=== PATIENT | female | born 1975 | race Caucasian/White ===

== ENCOUNTER 2017-04-08 15:16 | Emergency (ER) | payer MEDICAID ==
[2017-04-08 15:59] LABS: APPEARANCE CLEAR (CLEAR); BILIRUBIN NEGATIVE (NEGATIVE); COLOR YELLOW (YELLOW); GLUCOSE NEGATIVE (NEGATIVE); KETONE NEGATIVE (NEGATIVE); LEUKOCYTE ESTERASE NEGATIVE (NEGATIVE); NITRITE NEGATIVE (NEGATIVE); PROTEIN NEGATIVE (NEGATIVE); UROBILINOGEN NORMAL (NORMAL)
== END 2017-04-08 15:17 | disposition left against medical advice (07) ==
LOC: D.ER 15:16
PROVIDERS: Emergency Medicine
DX: R10.9 Unspecified abdominal pain (principal)

== ENCOUNTER 2017-04-14 21:46 | Emergency (ER) | payer MEDICAID ==
[2017-04-14 22:47] LABS: BASOPHILS 0.1 % (0-2); EOSINOPHILS 0.8 % (0-7); HEMATOCRIT 39.1 % (36.0-48.0); HEMOGLOBIN 13.2 g/dL (12-16); IMMATURE GRANULOCYTES 0.6 % (0-5); LYMPHOCYTES 22.6 % (15-50); MCH 30.1 pg (26.0-34.0); MCHC 33.8 g/dL (31.0-37.0); MCV 89.3 fL (80.0-100.0); MEAN PLATELET VOLUME 11.9 fL (7.4-10.4); MONOCYTES 6.5 % (2-11); NEUTROPHILS 69.4 % (40-80); PLATELET COUNT 291 10x3/uL (130-400); RBC 4.38 10x6/uL (4.00-5.40); RDW 13.7 % (11.5-14.5); WBC 19.5 10x3/uL (4.8-10.8)
[2017-04-14 23:03] LABS: ALBUMIN 2.9 g/dL (3.4-5.0); ALKALINE PHOSPHATASE 85 U/L (46-116); ALT (SGPT) 13 U/L (10-68); AMYLASE - SERUM 91 U/L (25-115); BILIRUBIN - TOTAL 0.11 mg/dL (0.2-1.3); CALC OSMOLALITY 280 mosm/kg (275-300); CALCIUM 8.4 mg/dL (8.5-10.1); CARBON DIOXIDE 30.8 mmol/L (21.0-32.0); CHLORIDE - SERUM 106 mmol/L (98-107); CREATININE - SERUM 0.8 mg/dL (0.6-1.3); GLUCOSE 86 mg/dL (74-106); LIPASE 247 U/L (73-393); POTASSIUM - SERUM 3.2 mmol/L (3.5-5.1); PROTEIN - SERUM 5.8 g/dL (6.4-8.2); SODIUM 142 mmol/L (136-145); UREA NITROGEN 9 mg/dL (7-18); eGFR NON AFRICAN AMERICAN 84 mL/min (90-120)
[2017-04-14 23:13] LABS: APPEARANCE CLEAR (CLEAR); COLOR YELLOW (YELLOW); LEUKOCYTE ESTERASE NEGATIVE (NEGATIVE); NITRITE NEGATIVE (NEGATIVE); PROTEIN NEGATIVE (NEGATIVE)
[2017-04-14 23:14] LABS: BILIRUBIN NEGATIVE (NEGATIVE); GLUCOSE NEGATIVE (NEGATIVE); KETONE NEGATIVE (NEGATIVE); UROBILINOGEN NORMAL (NORMAL)
[2017-04-14 23:34] LABS: HCG URINE NEGATIVE (NEGATIVE)
== END 2017-04-15 04:38 | disposition home or self-care (01) ==
LOC: D.ER 21:46
PROVIDERS: Family Medicine
DX: K29.00 Acute gastritis without bleeding (principal); F17.200 Nicotine dependence, unspecified, uncomplicated

== ENCOUNTER 2017-06-06 13:45 | Emergency (ER) | payer MEDICAID ==
[2017-06-06 14:48] LABS: APPEARANCE CLEAR (CLEAR); BACTERIA FEW /hpf (NONE SEEN); BILIRUBIN NEGATIVE (NEGATIVE); COLOR YELLOW (YELLOW); EPITHELIAL CELLS 0-5 /hpf (0-5); GLUCOSE NEGATIVE (NEGATIVE); KETONE NEGATIVE (NEGATIVE); LEUKOCYTE ESTERASE NEGATIVE (NEGATIVE); NITRITE NEGATIVE (NEGATIVE); PROTEIN NEGATIVE (NEGATIVE); RED CELLS - URINE OCC /hpf (0-5); SPECIFIC GRAVITY 1.005 (1.005-1.020); UROBILINOGEN NORMAL (NORMAL); WHITE CELLS - URINE RARE /hpf (0-5)
[2017-06-06 16:42] LABS: BASOPHILS 0.4 % (0-2); EOSINOPHILS 1.3 % (0-7); HEMATOCRIT 41.4 % (36.0-48.0); HEMOGLOBIN 13.8 g/dL (12-16); IMMATURE GRANULOCYTES 0.2 % (0-5); LYMPHOCYTES 17.9 % (15-50); MCH 29.7 pg (26.0-34.0); MCHC 33.3 g/dL (31.0-37.0); MCV 89.2 fL (80.0-100.0); MEAN PLATELET VOLUME 12.2 fL (7.4-10.4); MONOCYTES 9.8 % (2-11); NEUTROPHILS 70.4 % (40-80); PLATELET COUNT 237 10x3/uL (130-400); RBC 4.64 10x6/uL (4.00-5.40); RDW 13.1 % (11.5-14.5); WBC 11.2 10x3/uL (4.8-10.8)
[2017-06-06 17:31] LABS: ALBUMIN 3.4 g/dL (3.4-5.0); ALKALINE PHOSPHATASE 119 U/L (46-116); ALT (SGPT) 20 U/L (10-68); BILIRUBIN - TOTAL 0.14 mg/dL (0.2-1.3); CALC OSMOLALITY 275 mosm/kg (275-300); CALCIUM 8.8 mg/dL (8.5-10.1); CARBON DIOXIDE 27.5 mmol/L (21.0-32.0); CHLORIDE - SERUM 105 mmol/L (98-107); CREATININE - SERUM 0.7 mg/dL (0.6-1.3); GLUCOSE 86 mg/dL (74-106); POTASSIUM - SERUM 3.9 mmol/L (3.5-5.1); PROTEIN - SERUM 6.4 g/dL (6.4-8.2); SODIUM 140 mmol/L (136-145); UREA NITROGEN 6 mg/dL (7-18); eGFR NON AFRICAN AMERICAN > 90 mL/min (90-120)
== END 2017-06-06 21:44 | disposition home or self-care (01) ==
LOC: D.ER 13:45
PROVIDERS: Emergency Medicine; Physician Assistant
DX: R10.32 Left lower quadrant pain (principal); R10.31 Right lower quadrant pain; K50.90 Crohn's disease, unspecified, without complications; F17.200 Nicotine dependence, unspecified, uncomplicated

== ENCOUNTER → 2017-06-12 15:04 | Outpatient (CLI) | payer MEDICAID | END | disposition home or self-care (01) | LOC: D.US 15:04 | DX: R60.0 Localized edema (principal) ==

== ENCOUNTER → 2017-07-16 12:40 | Outpatient (CLI) | payer MEDICAID | END | disposition home or self-care (01) | LOC: D.US 12:40 | DX: E01.0 Iodine-deficiency related diffuse (endemic) goiter (principal); I80.9 Phlebitis and thrombophlebitis of unspecified site ==

== ENCOUNTER 2017-10-21 16:17 | Emergency (ER) | payer MEDICAID | END 2017-10-21 17:30 | disposition left against medical advice (07) | LOC: D.ER 16:17 | DX: M79.601 Pain in right arm (principal) ==

== ENCOUNTER → 2017-10-22 14:30 | Outpatient (CLI) | payer MEDICAID | END | disposition home or self-care (01) | LOC: D.US 14:30 | DX: R60.9 Edema, unspecified (principal) ==

== ENCOUNTER → 2017-11-04 12:40 | Outpatient (CLI) | payer MEDICAID | END | disposition home or self-care (01) | LOC: D.US 10-31 13:00 | DX: R22.1 Localized swelling, mass and lump, neck (principal) ==

== ENCOUNTER 2018-05-26 12:31 | Emergency (ER) | payer MEDICAID ==
[~2018-05-26] VITALS: Ht 157.5 cm; Wt 68.2 kg
[2018-05-26 12:54] VITALS: Ht 157.5 cm; Wt 68.2 kg
[2018-05-26] MEDS ORDERED: PROZAC40 MG PO (12:55)
[2018-05-26] MEDS ORDERED: PHENERGAN25 M1 PO (12:55)
[2018-05-26] MEDS ORDERED: PEPCID40 MG PO (12:56)
[2018-05-26] MEDS ORDERED: FEXMID7.5 MG PO (12:56)
[2018-05-26] MEDS ORDERED: LIPITOR40 MG (12:56)
[2018-05-26 13:27] LABS: APPEARANCE CLEAR (CLEAR); BACTERIA FEW /hpf (NONE SEEN); COLOR YELLOW (YELLOW); EPITHELIAL CELLS RARE /hpf (0-5)
[2018-05-26 13:28] LABS: BILIRUBIN NEGATIVE (NEGATIVE); GLUCOSE NEGATIVE (NEGATIVE); KETONE NEGATIVE (NEGATIVE); NITRITE NEGATIVE (NEGATIVE); PROTEIN NEGATIVE (NEGATIVE); RED CELLS - URINE 0-5 /hpf (0-5); UROBILINOGEN NORMAL (NORMAL); WHITE CELLS - URINE OCC /hpf (0-5)
[2018-05-26 13:48] LABS: BASOPHILS 0.2 % (0-2); EOSINOPHILS 1.1 % (0-7); HEMATOCRIT 41.6 % (36.0-48.0); HEMOGLOBIN 13.8 g/dL (12-16); IMMATURE GRANULOCYTES 0.8 % (0-5); LYMPHOCYTES 11.8 % (15-50); MCH 29.1 pg (26.0-34.0); MCHC 33.2 g/dL (31.0-37.0); MCV 87.8 fL (80.0-100.0); MEAN PLATELET VOLUME 11.7 fL (7.4-10.4); MONOCYTES 9.4 % (2-11); NEUTROPHILS 76.7 % (40-80); PLATELET COUNT 251 10x3/uL (130-400); RBC 4.74 10x6/uL (4.00-5.40); RDW 13.8 % (11.5-14.5); WBC 11.7 10x3/uL (4.8-10.8)
[2018-05-26 14:09] LABS: ALBUMIN 3.2 g/dL (3.4-5.0); ALKALINE PHOSPHATASE 180 U/L (46-116); ALT (SGPT) 25 U/L (10-68); AMYLASE - SERUM 60 U/L (25-115); CALC OSMOLALITY 276 mosm/kg (275-300); CALCIUM 8.6 mg/dL (8.5-10.1); CARBON DIOXIDE 25.9 mmol/L (21.0-32.0); CHLORIDE - SERUM 106 mmol/L (98-107); CREATININE - SERUM 0.5 mg/dL (0.6-1.3); GLUCOSE 98 mg/dL (74-106); LIPASE 81 U/L (73-393); PROTEIN - SERUM 6.8 g/dL (6.4-8.2); SODIUM 140 mmol/L (136-145); UREA NITROGEN 6 mg/dL (7-18); eGFR NON AFRICAN AMERICAN > 90 mL/min (90-120)
[2018-05-26] MEDS ORDERED: ZOFRAN4 MG PO (16:42)
[2018-05-26] MEDS ORDERED: MACROBID100 MG PO (16:42)
[2018-05-26 18:49] VITALS: BP 132/79
[2018-06-30 18:12] VITALS: Ht 157.5 cm; Wt 68.2 kg
== END 2018-05-26 18:51 | disposition home or self-care (01) ==
LOC: D.ER 12:31
PROVIDERS: Family Medicine
DX: R10.11 Right upper quadrant pain (principal); N39.0 Urinary tract infection, site not specified; F17.200 Nicotine dependence, unspecified, uncomplicated

== ENCOUNTER 2018-06-20 20:14 | Inpatient (IN) | payer MEDICAID ==
[~2018-06-20] VITALS: Ht 157.5 cm; Wt 72.1 kg
[~2018-06-20 20:14] MED LIST: FEXMID7.5 MG PO; LIPITOR40 MG; MACROBID100 MG PO; PEPCID40 MG PO; PHENERGAN25 M1 PO; PROZAC40 MG PO; ZOFRAN4 MG PO
[2018-06-20] MEDS ORDERED: OMEPRAZOLE20 M1 PO (23:09)
[2018-06-20] MEDS ORDERED: CYCLOBENZAPRINE10 MG PO (23:12)
[2018-06-20 23:28] LABS: BASOPHILS 0.2 % (0-2); EOSINOPHILS 1.5 % (0-7); HEMATOCRIT 35.6 % (36.0-48.0); HEMOGLOBIN 11.8 g/dL (12-16); IMMATURE GRANULOCYTES 0.7 % (0-5); MCHC 33.1 g/dL (31.0-37.0); MCV 87.5 fL (80.0-100.0); MEAN PLATELET VOLUME 10.5 fL (7.4-10.4); MONOCYTES 7.7 % (2-11); NEUTROPHILS 74.9 % (40-80); PLATELET COUNT 300 10x3/uL (130-400); RBC 4.07 10x6/uL (4.00-5.40); RDW 13.8 % (11.5-14.5); WBC 13.1 10x3/uL (4.8-10.8)
[2018-06-20 23:31] VITALS: BP 144/71; BMI 29.1
[2018-06-20 23:35] LABS: HCG SERUM NEGATIVE (NEGATIVE)
[2018-06-21] VITALS (14 sets, daily range): BP systolic 91–143; BP diastolic 50–85; Ht 157.5 cm; Wt 72.1 kg
[2018-06-21] MEDS ORDERED: LEVAQUIN750 MG PO (18:01)
[2018-06-21] MEDS ORDERED: PROTONIX40 MG PO (18:02)
[2018-06-21] MEDS ORDERED: FLAGYL500 MG PO (18:02)
[2018-06-21] MEDS ORDERED: PEPCID40 MG PO (18:13)
== END 2018-06-21 18:44 | disposition home or self-care (01) | DRG 391 ==
LOC: D.ICU 20:14 → D.MS 06-21 14:30
PROVIDERS: Internal Medicine Gastroenterology
PROC: 0DB78ZX Excision of Stomach, Pylorus, Via Natural or Artificial Opening Endoscopic, Diagnostic (ICD-10-PCS; principal; 2018-06-21 09:30)
DX: A09 Infectious gastroenteritis and colitis, unspecified (principal); K25.4 Chronic or unspecified gastric ulcer with hemorrhage; D62 Acute posthemorrhagic anemia; K44.9 Diaphragmatic hernia without obstruction or gangrene; K29.60 Other gastritis without bleeding; I10 Essential (primary) hypertension; K21.9 Gastro-esophageal reflux disease without esophagitis

== ENCOUNTER 2018-06-30 18:02 | Emergency (ER) | payer MEDICAID ==
[~2018-06-30] VITALS: Ht 157.5 cm; Wt 70.5 kg
[~2018-06-30 18:02] MED LIST changes: +CYCLOBENZAPRINE10 MG PO; +FLAGYL500 MG PO; +LEVAQUIN750 MG PO; +OMEPRAZOLE20 M1 PO; +PROTONIX40 MG PO
[2018-06-30 18:12] VITALS: Ht 157.5 cm; Wt 70.5 kg
[2018-06-30 19:10] LABS: BASOPHILS 0.2 % (0-2); EOSINOPHILS 0.6 % (0-7); HEMOGLOBIN 12.1 g/dL (12-16); LYMPHOCYTES 13.2 % (15-50); MCH 28.3 pg (26.0-34.0); MCHC 32.7 g/dL (31.0-37.0); MCV 86.7 fL (80.0-100.0); MEAN PLATELET VOLUME 11.5 fL (7.4-10.4); MONOCYTES 9.4 % (2-11); NEUTROPHILS 75.6 % (40-80); PLATELET COUNT 306 10x3/uL (130-400); RBC 4.27 10x6/uL (4.00-5.40); WBC 15.3 10x3/uL (4.8-10.8)
[2018-06-30 19:18] LABS: APPEARANCE HAZY (CLEAR); BACTERIA FEW /hpf (NONE SEEN); BILIRUBIN NEGATIVE (NEGATIVE); COLOR YELLOW (YELLOW); GLUCOSE NEGATIVE (NEGATIVE); KETONE NEGATIVE (NEGATIVE); MUCUS >1+ /lpf (NONE SEEN); NITRITE NEGATIVE (NEGATIVE); PROTEIN NEGATIVE (NEGATIVE); SPECIFIC GRAVITY 1.015 (1.005-1.020); UROBILINOGEN NORMAL (NORMAL); WHITE CELLS - URINE 0-5 /hpf (0-5)
[2018-06-30] MEDS ORDERED: CARAFATE1 G PO (19:26)
[2018-06-30] MEDS ORDERED: LIBRAX CAPSULE1 CAP PO (19:26)
[2018-06-30 19:28] LABS: ALBUMIN 3.2 g/dL (3.4-5.0); ALKALINE PHOSPHATASE 154 U/L (46-116); ALT (SGPT) 26 U/L (10-68); BILIRUBIN - TOTAL 0.22 mg/dL (0.2-1.3); CALC OSMOLALITY 267 mosm/kg (275-300); CALCIUM 8.5 mg/dL (8.5-10.1); CARBON DIOXIDE 26.4 mmol/L (21.0-32.0); CHLORIDE - SERUM 102 mmol/L (98-107); CREATININE - SERUM 0.6 mg/dL (0.6-1.3); GLUCOSE 95 mg/dL (74-106); LIPASE 73 U/L (73-393); POTASSIUM - SERUM 3.4 mmol/L (3.5-5.1); PROTEIN - SERUM 6.7 g/dL (6.4-8.2); SODIUM 135 mmol/L (136-145); UREA NITROGEN 6 mg/dL (7-18); eGFR NON AFRICAN AMERICAN > 90 mL/min (90-120)
[2018-06-30 20:42] VITALS: BP 132/85
== END 2018-06-30 20:43 | disposition home or self-care (01) ==
LOC: D.ER 18:02
PROVIDERS: Family Medicine
DX: K29.60 Other gastritis without bleeding (principal); K25.9 Gastric ulcer, unspecified as acute or chronic, without hemorrhage or perforation; R11.0 Nausea; K21.9 Gastro-esophageal reflux disease without esophagitis; F17.200 Nicotine dependence, unspecified, uncomplicated

== ENCOUNTER 2018-07-28 14:22 | Emergency (ER) | payer MEDICAID ==
[~2018-07-28] VITALS: Ht 157.5 cm; Wt 70.9 kg
[~2018-07-28 14:22] MED LIST changes: +CARAFATE1 G PO; +LIBRAX CAPSULE1 CAP PO
[2018-07-28 14:28] VITALS: Ht 157.5 cm; Wt 70.9 kg
[2018-07-28 15:23] LABS: BASOPHILS 0.2 % (0-2); EOSINOPHILS 0.6 % (0-7); HEMOGLOBIN 12.8 g/dL (12-16); IMMATURE GRANULOCYTES 0.8 % (0-5); LYMPHOCYTES 13.3 % (15-50); MCH 28.4 pg (26.0-34.0); MCHC 32.8 g/dL (31.0-37.0); MCV 86.7 fL (80.0-100.0); MEAN PLATELET VOLUME 10.8 fL (7.4-10.4); NEUTROPHILS 77.1 % (40-80); PLATELET COUNT 328 10x3/uL (130-400); RDW 13.9 % (11.5-14.5); WBC 16.9 10x3/uL (4.8-10.8)
[2018-07-28 15:34] LABS: APPEARANCE CLEAR (CLEAR); COLOR YELLOW (YELLOW)
[2018-07-28 15:35] LABS: BILIRUBIN NEGATIVE (NEGATIVE); GLUCOSE NEGATIVE (NEGATIVE); KETONE NEGATIVE (NEGATIVE); NITRITE NEGATIVE (NEGATIVE); PROTEIN NEGATIVE (NEGATIVE); UROBILINOGEN NORMAL (NORMAL)
[2018-07-28 15:36] LABS: BACTERIA FEW /hpf (NONE SEEN); EPITHELIAL CELLS 0-5 /hpf (0-5); MUCUS <1+ /lpf (NONE SEEN); RED CELLS - URINE 0-5 /hpf (0-5); WHITE CELLS - URINE 0-5 /hpf (0-5)
[2018-07-28 15:47] LABS: APTT 28.9 SECONDS (22.8-39.4); INR 0.97 (0.85-1.17); PROTIME 12.5 SECONDS (11.6-15.0)
[2018-07-28 15:48] LABS: ALBUMIN 3.4 g/dL (3.4-5.0); ALKALINE PHOSPHATASE 176 U/L (46-116); ALT (SGPT) 25 U/L (10-68); BILIRUBIN - TOTAL 0.19 mg/dL (0.2-1.3); CALC OSMOLALITY 271 mosm/kg (275-300); CALCIUM 8.7 mg/dL (8.5-10.1); CARBON DIOXIDE 29.2 mmol/L (21.0-32.0); CHLORIDE - SERUM 103 mmol/L (98-107); CREATININE - SERUM 0.7 mg/dL (0.6-1.3); GLUCOSE 96 mg/dL (74-106); POTASSIUM - SERUM 3.4 mmol/L (3.5-5.1); PROTEIN - SERUM 7.3 g/dL (6.4-8.2); SODIUM 137 mmol/L (136-145); UREA NITROGEN 8 mg/dL (7-18); eGFR NON AFRICAN AMERICAN > 90 mL/min (90-120)
[2018-07-28] MEDS ORDERED: NEXIUM40 MG PO (16:43)
[2018-07-28] MEDS ORDERED: PHENERGAN25 M1 PO (16:43)
[2018-07-28 18:52] VITALS: BP 135/92
== END 2018-07-28 18:55 | disposition home or self-care (01) ==
LOC: D.ER 14:22
PROVIDERS: Emergency Medicine
DX: K29.01 Acute gastritis with bleeding (principal); K21.9 Gastro-esophageal reflux disease without esophagitis; F17.200 Nicotine dependence, unspecified, uncomplicated

== ENCOUNTER → 2018-08-25 11:24 | Outpatient (CLI) | payer MEDICAID ==
[2018-07-28 14:28] VITALS: BMI 28.6
[~2018-08-25 11:24] MED LIST changes: +NEXIUM40 MG PO
== END | disposition home or self-care (01) ==
LOC: D.RAD 11:24
DX: M54.5 Low back pain (principal)

== ENCOUNTER → 2018-09-17 15:00 | Outpatient (CLI) | payer MEDICAID ==
[2018-07-28 14:28] VITALS: BMI 28.6
== END | disposition home or self-care (01) ==
LOC: D.MRI 15:00
DX: E01.0 Iodine-deficiency related diffuse (endemic) goiter (principal)

== ENCOUNTER 2018-12-20 15:13 | Emergency (ER) | payer MEDICAID ==
[~2018-12-20] VITALS: Ht 157.5 cm; Wt 72.7 kg
[2018-12-20 15:23] VITALS: Ht 157.5 cm; Wt 72.7 kg
[2018-12-20 16:15] LABS: BASOPHILS 0.2 % (0-2); EOSINOPHILS 1.3 % (0-7); HEMATOCRIT 35.5 % (36.0-48.0); HEMOGLOBIN 11.5 g/dL (12-16); IMMATURE GRANULOCYTES 0.8 % (0-5); LYMPHOCYTES 19.7 % (15-50); MCHC 32.4 g/dL (31.0-37.0); MCV 83.3 fL (80.0-100.0); MONOCYTES 10.9 % (2-11); NEUTROPHILS 67.1 % (40-80); PLATELET COUNT 333 10x3/uL (130-400); RBC 4.26 10x6/uL (4.00-5.40); RDW 14.5 % (11.5-14.5); WBC 12.5 10x3/uL (4.8-10.8)
[2018-12-20 16:29] LABS: APPEARANCE CLEAR (CLEAR); BILIRUBIN NEGATIVE (NEGATIVE); COLOR YELLOW (YELLOW); EPITHELIAL CELLS 0-5 /hpf (0-5); GLUCOSE NEGATIVE (NEGATIVE); KETONE NEGATIVE (NEGATIVE); NITRITE NEGATIVE (NEGATIVE); PROTEIN NEGATIVE (NEGATIVE); RED CELLS - URINE OCC /hpf (0-5); UROBILINOGEN NORMAL (NORMAL); WHITE CELLS - URINE NSEEN /hpf (0-5)
[2018-12-20 16:48] LABS: ALBUMIN 3.2 g/dL (3.4-5.0); ALKALINE PHOSPHATASE 171 U/L (46-116); ALT (SGPT) 24 U/L (10-68); AMYLASE - SERUM 80 U/L (25-115); BILIRUBIN - TOTAL 0.17 mg/dL (0.2-1.3); CALC OSMOLALITY 273 mosm/kg (275-300); CALCIUM 8.3 mg/dL (8.5-10.1); CHLORIDE - SERUM 101 mmol/L (98-107); CREATININE - SERUM 0.7 mg/dL (0.6-1.3); GLUCOSE 81 mg/dL (74-106); LIPASE 223 U/L (73-393); POTASSIUM - SERUM 3.7 mmol/L (3.5-5.1); SODIUM 137 mmol/L (136-145); UREA NITROGEN 14 mg/dL (7-18); eGFR NON AFRICAN AMERICAN > 90 mL/min (90-120)
[2018-12-20 16:53] LABS: HCG SERUM NEGATIVE (NEGATIVE)
[2018-12-20] MEDS ORDERED: TORADOL10 MG PO (20:16)
[2018-12-20 21:31] VITALS: BP 118/70
== END 2018-12-20 21:31 | disposition home or self-care (01) ==
LOC: D.ER 15:13
PROVIDERS: Family Medicine
DX: N93.8 Other specified abnormal uterine and vaginal bleeding (principal); Z78.0 Asymptomatic menopausal state

== ENCOUNTER 2018-12-22 14:51 | Emergency (ER) | payer MEDICAID ==
[~2018-12-22] VITALS: Ht 157.5 cm; Wt 72.7 kg
[~2018-12-22 14:51] MED LIST changes: +TORADOL10 MG PO
[2018-12-22 14:55] VITALS: Ht 157.5 cm; Wt 72.7 kg
[2018-12-22 15:16] LABS: BASOPHILS 0.2 % (0-2); EOSINOPHILS 0.5 % (0-7); HEMATOCRIT 35.3 % (36.0-48.0); HEMOGLOBIN 11.5 g/dL (12-16); IMMATURE GRANULOCYTES 0.8 % (0-5); LYMPHOCYTES 17.1 % (15-50); MCH 26.8 pg (26.0-34.0); MCHC 32.6 g/dL (31.0-37.0); MCV 82.3 fL (80.0-100.0); MEAN PLATELET VOLUME 10.7 fL (7.4-10.4); MONOCYTES 6.8 % (2-11); NEUTROPHILS 74.6 % (40-80); PLATELET COUNT 297 10x3/uL (130-400); RBC 4.29 10x6/uL (4.00-5.40); RDW 14.4 % (11.5-14.5)
[2018-12-22 15:29] LABS: ALBUMIN 3.2 g/dL (3.4-5.0); ALKALINE PHOSPHATASE 178 U/L (46-116); BILIRUBIN - TOTAL 0.11 mg/dL (0.2-1.3); CALCIUM 8.6 mg/dL (8.5-10.1); CARBON DIOXIDE 22.6 mmol/L (21.0-32.0); CHLORIDE - SERUM 105 mmol/L (98-107); CREATININE - SERUM 0.6 mg/dL (0.6-1.3); GLUCOSE 95 mg/dL (74-106); POTASSIUM - SERUM 3.6 mmol/L (3.5-5.1); SODIUM 139 mmol/L (136-145); eGFR NON AFRICAN AMERICAN > 90 mL/min (90-120)
[2018-12-22 15:31] LABS: ALT (SGPT) 40 U/L (10-68); CALC OSMOLALITY 275 mosm/kg (275-300); UREA NITROGEN 7 mg/dL (7-18)
[2018-12-22 19:00] LABS: APPEARANCE HAZY (CLEAR); BILIRUBIN NEGATIVE (NEGATIVE); COLOR YELLOW (YELLOW); GLUCOSE NEGATIVE (NEGATIVE); KETONE NEGATIVE (NEGATIVE); NITRITE NEGATIVE (NEGATIVE); PROTEIN NEGATIVE (NEGATIVE); UROBILINOGEN NORMAL (NORMAL)
[2018-12-22 19:04] LABS: WHITE CELLS - URINE OCC /hpf (0-5)
[2018-12-22 19:05] LABS: BACTERIA FEW /hpf (NONE SEEN); RED CELLS - URINE >50 /hpf (0-5)
[2018-12-22] MEDS ORDERED: PHENERGAN25 MG RC (20:14)
[2018-12-22 20:28] VITALS: BP 149/78
== END 2018-12-22 20:29 | disposition home or self-care (01) ==
LOC: D.ER 14:51
PROVIDERS: Emergency Medicine
DX: K59.00 Constipation, unspecified (principal); K92.1 Melena; M32.9 Systemic lupus erythematosus, unspecified

== ENCOUNTER 2019-01-01 12:53 | Emergency (ER) | payer MEDICAID ==
[~2019-01-01] VITALS: Ht 157.5 cm; Wt 72.7 kg
[~2019-01-01 12:53] MED LIST changes: +PHENERGAN25 MG RC
[2019-01-01 13:04] VITALS: Ht 157.5 cm; Wt 72.7 kg
[2019-01-01 14:08] LABS: ALKALINE PHOSPHATASE 176 U/L (46-116); ALT (SGPT) 21 U/L (10-68); BILIRUBIN - TOTAL 0.08 mg/dL (0.2-1.3); CALC OSMOLALITY 276 mosm/kg (275-300); CALCIUM 8.7 mg/dL (8.5-10.1); CARBON DIOXIDE 23.8 mmol/L (21.0-32.0); CHLORIDE - SERUM 107 mmol/L (98-107); CREATININE - SERUM 0.7 mg/dL (0.6-1.3); GLUCOSE 99 mg/dL (74-106); POTASSIUM - SERUM 3.2 mmol/L (3.5-5.1); PROTEIN - SERUM 6.7 g/dL (6.4-8.2); SODIUM 139 mmol/L (136-145); UREA NITROGEN 10 mg/dL (7-18); eGFR NON AFRICAN AMERICAN > 90 mL/min (90-120)
[2019-01-01 14:18] LABS: HCG SERUM NEGATIVE (NEGATIVE)
[2019-01-01 14:26] LABS: APPEARANCE HAZY (CLEAR); BACTERIA FEW /hpf (NONE SEEN); BILIRUBIN NEGATIVE (NEGATIVE); COLOR YELLOW (YELLOW); EPITHELIAL CELLS OCC /hpf (0-5); GLUCOSE NEGATIVE (NEGATIVE); KETONE NEGATIVE (NEGATIVE); MUCUS <1+ /lpf (NONE SEEN); NITRITE NEGATIVE (NEGATIVE); PROTEIN NEGATIVE (NEGATIVE); RED CELLS - URINE RARE /hpf (0-5); SPECIFIC GRAVITY 1.015 (1.005-1.020); UROBILINOGEN NORMAL (NORMAL)
[2019-01-01 14:44] LABS: BASOPHILS 0.1 % (0-2); EOSINOPHILS 0.8 % (0-7); HEMATOCRIT 35.4 % (36.0-48.0); HEMOGLOBIN 11.5 g/dL (12-16); IMMATURE GRANULOCYTES 0.5 % (0-5); LYMPHOCYTES 15.9 % (15-50); MCH 26.7 pg (26.0-34.0); MCHC 32.5 g/dL (31.0-37.0); MCV 82.1 fL (80.0-100.0); MEAN PLATELET VOLUME 11.8 fL (7.4-10.4); MONOCYTES 9.5 % (2-11); NEUTROPHILS 73.2 % (40-80); PLATELET COUNT 330 10x3/uL (130-400); RBC 4.31 10x6/uL (4.00-5.40); RDW 14.8 % (11.5-14.5); WBC 11.8 10x3/uL (4.8-10.8)
[2019-01-01 15:45] VITALS: BP 146/63
== END 2019-01-01 15:45 | disposition home or self-care (01) ==
LOC: D.ER 12:53
PROVIDERS: Emergency Medicine
DX: R10.31 Right lower quadrant pain (principal); E11.43 Type 2 diabetes mellitus with diabetic autonomic (poly)neuropathy; K31.84 Gastroparesis; M32.9 Systemic lupus erythematosus, unspecified; E87.6 Hypokalemia; R11.2 Nausea with vomiting, unspecified; R19.7 Diarrhea, unspecified

== ENCOUNTER 2019-01-19 14:57 | Emergency (ER) | payer MEDICAID ==
[~2019-01-19] VITALS: Ht 157.5 cm; Wt 68.2 kg
[2019-01-19 15:09] VITALS: Ht 157.5 cm; Wt 68.2 kg
[2019-01-19 16:03] LABS: BASOPHILS 0.2 % (0-2); EOSINOPHILS 0.4 % (0-7); HEMATOCRIT 38.2 % (36.0-48.0); HEMOGLOBIN 12.5 g/dL (12-16); IMMATURE GRANULOCYTES 0.4 % (0-5); LYMPHOCYTES 14.9 % (15-50); MCH 26.6 pg (26.0-34.0); MCHC 32.7 g/dL (31.0-37.0); MCV 81.3 fL (80.0-100.0); MEAN PLATELET VOLUME 12.1 fL (7.4-10.4); MONOCYTES 6.6 % (2-11); NEUTROPHILS 77.5 % (40-80); PLATELET COUNT 330 10x3/uL (130-400); RDW 14.7 % (11.5-14.5); WBC 13.2 10x3/uL (4.8-10.8)
[2019-01-19 16:28] LABS: ALBUMIN 3.2 g/dL (3.4-5.0); ALKALINE PHOSPHATASE 167 U/L (46-116); ALT (SGPT) 20 U/L (10-68); BILIRUBIN - TOTAL 0.19 mg/dL (0.2-1.3); CALC OSMOLALITY 275 mosm/kg (275-300); CALCIUM 8.6 mg/dL (8.5-10.1); CARBON DIOXIDE 21.3 mmol/L (21.0-32.0); CHLORIDE - SERUM 105 mmol/L (98-107); CREATININE - SERUM 0.6 mg/dL (0.6-1.3); GLUCOSE 91 mg/dL (74-106); POTASSIUM - SERUM 3.6 mmol/L (3.5-5.1); PROTEIN - SERUM 7.3 g/dL (6.4-8.2); SODIUM 140 mmol/L (136-145); UREA NITROGEN 5 mg/dL (7-18); eGFR NON AFRICAN AMERICAN > 90 mL/min (90-120)
[2019-01-19 19:35] LABS: APPEARANCE CLEAR (CLEAR); BILIRUBIN NEGATIVE (NEGATIVE); COLOR STRAW (YELLOW); GLUCOSE NEGATIVE (NEGATIVE); KETONE NEGATIVE (NEGATIVE); NITRITE NEGATIVE (NEGATIVE); PROTEIN NEGATIVE (NEGATIVE); SPECIFIC GRAVITY 1.015 (1.005-1.020); UROBILINOGEN NORMAL (NORMAL)
[2019-01-19 19:38] LABS: BACTERIA MODERATE /hpf (NONE SEEN); EPITHELIAL CELLS 0-5 /hpf (0-5); MUCUS <1+ /lpf (NONE SEEN); WHITE CELLS - URINE 0-5 /hpf (0-5)
[2019-01-19] MEDS ORDERED: CIPRO500 MG PO (21:24)
[2019-01-19] MEDS ORDERED: PHENERGAN25 MG RC (21:24)
[2019-01-19] MEDS ORDERED: FLAGYL500 MG PO (21:24)
[2019-01-19 21:39] VITALS: BP 128/85
== END 2019-01-19 21:39 | disposition home or self-care (01) ==
LOC: D.ER 14:57
PROVIDERS: Emergency Medicine
DX: K52.9 Noninfective gastroenteritis and colitis, unspecified (principal); R11.2 Nausea with vomiting, unspecified

== ENCOUNTER 2019-01-25 22:13 | Emergency (ER) | payer MEDICAID ==
[~2019-01-25] VITALS: Ht 157.5 cm; Wt 72.7 kg
[~2019-01-25 22:13] MED LIST changes: +CIPRO500 MG PO
[2019-01-25 22:25] VITALS: Ht 157.5 cm; Wt 72.7 kg
[2019-01-25 23:36] LABS: APPEARANCE HAZY (CLEAR); BACTERIA NONE SEEN /hpf (NONE SEEN); BILIRUBIN NEGATIVE (NEGATIVE); COLOR YELLOW (YELLOW); EPITHELIAL CELLS OCC /hpf (0-5); GLUCOSE NEGATIVE (NEGATIVE); KETONE NEGATIVE (NEGATIVE); NITRITE NEGATIVE (NEGATIVE); PROTEIN NEGATIVE (NEGATIVE); RED CELLS - URINE 0-5 /hpf (0-5); UROBILINOGEN NORMAL (NORMAL); WHITE CELLS - URINE 0-5 /hpf (0-5)
[2019-01-25 23:36] LABS: BASOPHILS 0.2 % (0-2); EOSINOPHILS 1.1 % (0-7); HEMATOCRIT 35.7 % (36.0-48.0); HEMOGLOBIN 11.4 g/dL (12-16); IMMATURE GRANULOCYTES 0.3 % (0-5); MCH 26.2 pg (26.0-34.0); MCHC 31.9 g/dL (31.0-37.0); MCV 82.1 fL (80.0-100.0); MEAN PLATELET VOLUME 11.9 fL (7.4-10.4); MONOCYTES 8.4 % (2-11); PLATELET COUNT 295 10x3/uL (130-400); RBC 4.35 10x6/uL (4.00-5.40); RDW 15.1 % (11.5-14.5); WBC 11.8 10x3/uL (4.8-10.8)
[2019-01-25 23:57] LABS: ALKALINE PHOSPHATASE 146 U/L (46-116); ALT (SGPT) 18 U/L (10-68); BILIRUBIN - TOTAL 0.11 mg/dL (0.2-1.3); CALC OSMOLALITY 283 mosm/kg (275-300); CALCIUM 8.6 mg/dL (8.5-10.1); CARBON DIOXIDE 22.5 mmol/L (21.0-32.0); CHLORIDE - SERUM 107 mmol/L (98-107); CREATININE - SERUM 0.7 mg/dL (0.6-1.3); GLUCOSE 94 mg/dL (74-106); POTASSIUM - SERUM 3.2 mmol/L (3.5-5.1); PROTEIN - SERUM 6.6 g/dL (6.4-8.2); SODIUM 142 mmol/L (136-145); UREA NITROGEN 14 mg/dL (7-18); eGFR NON AFRICAN AMERICAN > 90 mL/min (90-120)
[2019-01-26 01:09] LABS: UDS - AMPHET NEGATIVE QUAL (NEGATIVE); UDS - BARB NEGATIVE QUAL (NEGATIVE); UDS - BENZO POSITIVE QUAL (NEGATIVE); UDS - COCAINE NEGATIVE QUAL (NEGATIVE); UDS - OPIATE NEGATIVE QUAL (NEGATIVE); UDS - PCP NEGATIVE QUAL (NEGATIVE); UDS - THC POSITIVE QUAL (NEGATIVE)
[2019-01-26 02:37] VITALS: BP 121/69
== END 2019-01-26 02:42 | disposition home or self-care (01) ==
LOC: D.ER 22:13
PROVIDERS: Family Medicine
DX: R10.9 Unspecified abdominal pain (principal)

== ENCOUNTER 2019-01-30 16:22 | Emergency (ER) | payer MEDICAID ==
[~2019-01-30] VITALS: Ht 157.5 cm; Wt 72.6 kg
[2019-01-30 16:28] VITALS: BP 130/81; Ht 157.5 cm; Wt 72.6 kg
[2019-01-30 17:27] LABS: BASOPHILS 0.2 % (0-2); EOSINOPHILS 1.1 % (0-7); HEMATOCRIT 36.5 % (36.0-48.0); HEMOGLOBIN 11.9 g/dL (12-16); IMMATURE GRANULOCYTES 0.5 % (0-5); LYMPHOCYTES 18.2 % (15-50); MCH 26.3 pg (26.0-34.0); MCHC 32.6 g/dL (31.0-37.0); MCV 80.8 fL (80.0-100.0); MEAN PLATELET VOLUME 11.3 fL (7.4-10.4); PLATELET COUNT 311 10x3/uL (130-400); RBC 4.52 10x6/uL (4.00-5.40); RDW 15.3 % (11.5-14.5)
[2019-01-30 17:47] LABS: ALBUMIN 3.2 g/dL (3.4-5.0); ALKALINE PHOSPHATASE 149 U/L (46-116); ALT (SGPT) 21 U/L (10-68); BILIRUBIN - TOTAL 0.08 mg/dL (0.2-1.3); CALC OSMOLALITY 276 mosm/kg (275-300); CALCIUM 8.6 mg/dL (8.5-10.1); CARBON DIOXIDE 21.9 mmol/L (21.0-32.0); CHLORIDE - SERUM 105 mmol/L (98-107); CREATININE - SERUM 0.6 mg/dL (0.6-1.3); GLUCOSE 85 mg/dL (74-106); POTASSIUM - SERUM 3.6 mmol/L (3.5-5.1); SODIUM 140 mmol/L (136-145); UREA NITROGEN 11 mg/dL (7-18); eGFR NON AFRICAN AMERICAN > 90 mL/min (90-120)
== END 2019-01-30 21:17 | disposition left against medical advice (07) ==
LOC: D.ER 16:22
PROVIDERS: Family Medicine
DX: K13.79 Other lesions of oral mucosa (principal)

== ENCOUNTER 2019-02-11 22:37 | Emergency (ER) | payer MEDICAID ==
[~2019-02-11] VITALS: Ht 157.5 cm; Wt 72.7 kg
[2019-02-11 23:17] VITALS: Ht 157.5 cm; Wt 72.7 kg
[2019-02-12] MEDS ORDERED: AMOXICILLIN500 M1 PO (00:09)
[2019-02-12] MEDS ORDERED: PHENERGAN DM SYR5 ML PO (00:09)
[2019-02-12 01:15] VITALS: BP 122/75
[2019-02-13] MEDS ORDERED: KEFLEX500 MG PO (16:45)
[2019-02-13] MEDS ORDERED: REGLAN10 MG PO (16:45)
== END 2019-02-12 01:15 | disposition home or self-care (01) ==
LOC: D.ER 22:37
DX: J02.0 Streptococcal pharyngitis (principal); R50.9 Fever, unspecified; R05 Cough

== ENCOUNTER 2019-02-13 15:00 | Emergency (ER) | payer MEDICAID ==
[~2019-02-13] VITALS: Ht 157.5 cm; Wt 72.7 kg
[~2019-02-13 15:00] MED LIST changes: +AMOXICILLIN500 M1 PO; +PHENERGAN DM SYR5 ML PO
[2019-02-13 15:32] VITALS: Ht 157.5 cm; Wt 72.7 kg
[2019-02-13] MEDS ORDERED: KEFLEX500 MG PO (16:45)
[2019-02-13] MEDS ORDERED: REGLAN10 MG PO (16:45)
[2019-02-13 17:22] VITALS: BP 136/84
== END 2019-02-13 17:23 | disposition home or self-care (01) ==
LOC: D.ER 15:00
DX: R11.2 Nausea with vomiting, unspecified (principal); Z87.19 Personal history of other diseases of the digestive system; J02.0 Streptococcal pharyngitis

== ENCOUNTER 2019-03-16 22:49 | Emergency (ER) | payer MEDICAID ==
[~2019-03-16] VITALS: Ht 157.5 cm; Wt 72.7 kg
[~2019-03-16 22:49] MED LIST changes: +KEFLEX500 MG PO; +REGLAN10 MG PO
[2019-03-16 23:09] VITALS: BP 108/78; Ht 157.5 cm; Wt 72.7 kg
[2019-03-16 23:48] LABS: BASOPHILS 0.1 % (0-2); EOSINOPHILS 0.5 % (0-7); HEMATOCRIT 35.4 % (36.0-48.0); HEMOGLOBIN 11.5 g/dL (12-16); IMMATURE GRANULOCYTES 0.3 % (0-5); LYMPHOCYTES 27.2 % (15-50); MCH 25.7 pg (26.0-34.0); MCHC 32.5 g/dL (31.0-37.0); MCV 79.2 fL (80.0-100.0); MEAN PLATELET VOLUME 10.4 fL (7.4-10.4); MONOCYTES 9.6 % (2-11); NEUTROPHILS 62.3 % (40-80); PLATELET COUNT 338 10x3/uL (130-400); RBC 4.47 10x6/uL (4.00-5.40)
[2019-03-17 00:07] LABS: ALBUMIN 3.2 g/dL (3.4-5.0); ALKALINE PHOSPHATASE 171 U/L (46-116); ALT (SGPT) 21 U/L (10-68); AMYLASE - SERUM 44 U/L (25-115); CALC OSMOLALITY 276 mosm/kg (275-300); CALCIUM 8.7 mg/dL (8.5-10.1); CARBON DIOXIDE 27.1 mmol/L (21.0-32.0); CHLORIDE - SERUM 103 mmol/L (98-107); CREATININE - SERUM 0.7 mg/dL (0.6-1.3); GLUCOSE 94 mg/dL (74-106); LIPASE 64 U/L (73-393); POTASSIUM - SERUM 3.2 mmol/L (3.5-5.1); PROTEIN - SERUM 7.5 g/dL (6.4-8.2); SODIUM 140 mmol/L (136-145); UREA NITROGEN 7 mg/dL (7-18); eGFR NON AFRICAN AMERICAN > 90 mL/min (90-120)
[2019-03-17 02:29] LABS: APPEARANCE HAZY (CLEAR); BILIRUBIN NEGATIVE (NEGATIVE); COLOR YELLOW (YELLOW); GLUCOSE NEGATIVE (NEGATIVE); KETONE NEGATIVE (NEGATIVE); NITRITE NEGATIVE (NEGATIVE); PROTEIN TRACE mg/dL (NEGATIVE); UROBILINOGEN NORMAL (NORMAL)
[2019-03-17 02:35] LABS: BACTERIA MODERATE /hpf (NONE SEEN); MUCUS >1+ /lpf (NONE SEEN)
== END 2019-03-17 03:15 | disposition left against medical advice (07) ==
LOC: D.ER 22:49
PROVIDERS: Family Medicine
DX: R11.2 Nausea with vomiting, unspecified (principal); R10.9 Unspecified abdominal pain

== ENCOUNTER 2019-03-19 23:06 | Emergency (ER) | payer MEDICAID ==
[~2019-03-19] VITALS: Ht 157.5 cm; Wt 70.9 kg
[2019-03-19 23:11] VITALS: Ht 157.5 cm; Wt 70.9 kg
[2019-03-19] MEDS ORDERED: AMBIEN5 MG PO (23:13)
[2019-03-19] MEDS ORDERED: REQUIP5 MG PO (23:14)
[2019-03-20 00:29] LABS: BASOPHILS 0.1 % (0-2); EOSINOPHILS 0.7 % (0-7); HEMATOCRIT 33.5 % (36.0-48.0); HEMOGLOBIN 10.8 g/dL (12-16); IMMATURE GRANULOCYTES 0.4 % (0-5); LYMPHOCYTES 18.9 % (15-50); MCH 25.8 pg (26.0-34.0); MCHC 32.2 g/dL (31.0-37.0); MEAN PLATELET VOLUME 10.9 fL (7.4-10.4); MONOCYTES 6.9 % (2-11); PLATELET COUNT 293 10x3/uL (130-400); RBC 4.19 10x6/uL (4.00-5.40); RDW 16.1 % (11.5-14.5); WBC 13.6 10x3/uL (4.8-10.8)
[2019-03-20 00:30] LABS: APPEARANCE CLEAR (CLEAR); BACTERIA NONE SEEN /hpf (NONE SEEN); BILIRUBIN NEGATIVE (NEGATIVE); COLOR YELLOW (YELLOW); EPITHELIAL CELLS OCC /hpf (0-5); GLUCOSE NEGATIVE (NEGATIVE); KETONE NEGATIVE (NEGATIVE); NITRITE NEGATIVE (NEGATIVE); PROTEIN NEGATIVE (NEGATIVE); UROBILINOGEN NORMAL (NORMAL); WHITE CELLS - URINE RARE /hpf (0-5)
[2019-03-20 00:36] LABS: ALBUMIN 3.1 g/dL (3.4-5.0); ALKALINE PHOSPHATASE 143 U/L (46-116); ALT (SGPT) 14 U/L (10-68); AMYLASE - SERUM 55 U/L (25-115); BILIRUBIN - TOTAL 0.16 mg/dL (0.2-1.3); CALC OSMOLALITY 275 mosm/kg (275-300); CALCIUM 8.7 mg/dL (8.5-10.1); CARBON DIOXIDE 24.8 mmol/L (21.0-32.0); CHLORIDE - SERUM 106 mmol/L (98-107); CREATININE - SERUM 0.7 mg/dL (0.6-1.3); GLUCOSE 92 mg/dL (74-106); LIPASE 66 U/L (73-393); POTASSIUM - SERUM 4.1 mmol/L (3.5-5.1); SODIUM 140 mmol/L (136-145); UREA NITROGEN 5 mg/dL (7-18); eGFR NON AFRICAN AMERICAN > 90 mL/min (90-120)
[2019-03-20 02:15] VITALS: BP 119/69
== END 2019-03-20 02:15 | disposition home or self-care (01) ==
LOC: D.ER 23:06
PROVIDERS: Emergency Medicine
DX: R11.2 Nausea with vomiting, unspecified (principal)

== ENCOUNTER 2019-03-25 02:54 | Inpatient (IN) | payer MEDICAID ==
[~2019-03-25] VITALS: Ht 157.5 cm; Wt 67.5 kg
[~2019-03-25 02:54] MED LIST changes: +AMBIEN5 MG PO; +REQUIP5 MG PO
[2019-03-25 03:11] LABS: APPEARANCE HAZY (CLEAR); COLOR YELLOW (YELLOW); GLUCOSE NEGATIVE (NEGATIVE); NITRITE NEGATIVE (NEGATIVE); PROTEIN NEGATIVE (NEGATIVE)
[2019-03-25 03:12] LABS: BILIRUBIN NEGATIVE (NEGATIVE); KETONE NEGATIVE (NEGATIVE); UROBILINOGEN NORMAL (NORMAL)
[2019-03-25 03:20] LABS: BACTERIA FEW /hpf (NONE SEEN); EPITHELIAL CELLS 0-5 /hpf (0-5); MUCUS >1+ /lpf (NONE SEEN); RED CELLS - URINE 0-5 /hpf (0-5); WHITE CELLS - URINE 0-5 /hpf (0-5)
[2019-03-25 03:27] LABS: BASOPHILS 0.1 % (0-2); EOSINOPHILS 0.9 % (0-7); HEMATOCRIT 35.4 % (36.0-48.0); HEMOGLOBIN 11.6 g/dL (12-16); IMMATURE GRANULOCYTES 0.2 % (0-5); LYMPHOCYTES 18.6 % (15-50); MCH 25.9 pg (26.0-34.0); MCHC 32.8 g/dL (31.0-37.0); MEAN PLATELET VOLUME 11.4 fL (7.4-10.4); MONOCYTES 9.7 % (2-11); NEUTROPHILS 70.5 % (40-80); PLATELET COUNT 290 10x3/uL (130-400); RBC 4.48 10x6/uL (4.00-5.40); RDW 15.6 % (11.5-14.5); WBC 13.3 10x3/uL (4.8-10.8)
[2019-03-25 03:43] LABS: ALBUMIN 3.3 g/dL (3.4-5.0); ALKALINE PHOSPHATASE 145 U/L (46-116); ALT (SGPT) 15 U/L (10-68); CALC OSMOLALITY 271 mosm/kg (275-300); CALCIUM 9.2 mg/dL (8.5-10.1); CARBON DIOXIDE 21.8 mmol/L (21.0-32.0); CHLORIDE - SERUM 103 mmol/L (98-107); CREATININE - SERUM 0.7 mg/dL (0.6-1.3); GLUCOSE 91 mg/dL (74-106); POTASSIUM - SERUM 3.3 mmol/L (3.5-5.1); PROTEIN - SERUM 7.4 g/dL (6.4-8.2); SODIUM 137 mmol/L (136-145); UREA NITROGEN 8 mg/dL (7-18); eGFR NON AFRICAN AMERICAN > 90 mL/min (90-120)
[2019-03-25 03:47] LABS: AMYLASE - SERUM 56 U/L (25-115); LIPASE 65 U/L (73-393)
[2019-03-25 03:48] LABS: TROPONIN-I < 0.017 ng/mL (0.000-0.060)
--- NOTE | 2019-03-25 04:35 | NUR ---
PT IN CT
--- NOTE | 2019-03-25 05:49 | NUR ---
PATIENT REFUSED TO TAKE THE COMPAZINE, DR. EDMONDS INFORMED. PATIENT ALSO REFUSED THE TYLENOL, DR. EDMONDS NOTIFIED.
[2019-03-25 08:30] VITALS: BP 104/57
[2019-03-25] MEDS ORDERED: PHENERGAN25 M1 PO (11:29)
[2019-03-25] MEDS ORDERED: KLONOPIN0.5 MG PO (11:30)
[2019-03-25 11:37] VITALS: BP 106/67; BMI 27.3
[2019-03-25 14:18] LABS: UDS - AMPHET NEGATIVE QUAL (NEGATIVE); UDS - BARB NEGATIVE QUAL (NEGATIVE); UDS - BENZO NEGATIVE QUAL (NEGATIVE); UDS - COCAINE NEGATIVE QUAL (NEGATIVE); UDS - OPIATE NEGATIVE QUAL (NEGATIVE); UDS - PCP NEGATIVE QUAL (NEGATIVE); UDS - THC POSITIVE QUAL (NEGATIVE)
--- NOTE | 2019-03-25 15:50 | NUR ---
PT ARRIVED FROM ICU, ALERT AND ORIENTED X4, CALL LIGHT IN REACH.
--- NOTE | 2019-03-25 18:38 | MORECARE ---
CASE MANAGEMENT DISCHARGE SUMMARY PATIENT: JUDD ISSA UNIT: [id number] ADM DATE: 03/25/19 AGE: 44 : 79 SEX: F ROOM/BED: D.1204 AUTHOR: LITA HIGUERA PHYSICIAN: REFERRING PHYSICIAN: AZALIA MCKEON MD DATE OF SERVICE: 03/25/19 Discharge Plan Patient Name: JUDD ISSA Facility: [facility]:[place] : 1975 Planned Disposition: Home Anticipated Discharge Date: Discharge Date: Expected LOS: Initial Reviewer: [email or web address] Initial Review Date: 03/25/2019 Generated: 03/25/19 7:37 pm DCPIA - Discharge Planning Initial Assessment Updated by [email or web address]: Adrianne Herndon on 03/25/19 6:36 pm * Is the patient Alert and Oriented? Yes * How many steps to enter\exit or inside your home? * PCP LINDA * [facility]acy [facility] * Preadmission Environment Home with Family * ADLs Independent * Equipment None * List name and contact numbers for known caregivers / representatives who currently or will assist patient after discharge: GERSON ISSA - [facility]- [phone] * Verbal permission to speak to the caregivers and representatives has been obtained from the patient. N/A * Community resources currently utilized None * Additional services required to return to the preadmission environment? No * Can the patient safely return to the preadmission environment? Yes * Has this patient been hospitalized within the prior 30 days at any hospital? Yes Patient Name: JUDD ISSA Page [id number] at 1838 All edits/amendments must be made on the electronic document DICTATION DATE: 03/25/191836 TELEGRAPHIC SERVICE DISPATCHER: RAJI 03/25/191836 RPT#: [id number] DC DATE: STATUS: ADM IN [facility] [address] [place] [address] END OF REPORT
--- NOTE | 2019-03-25 18:45 | MORECARE ---
CASE MANAGEMENT DISCHARGE SUMMARY PATIENT: JUDD ISSA UNIT: [id number] ADM DATE: 03/25/19 AGE: 44 : 79 SEX: F ROOM/BED: D.1204 AUTHOR: KALENDOC PHYSICIAN: REFERRING PHYSICIAN: AZALIA MCKEON MD DATE OF SERVICE: 03/25/19 Discharge Plan Patient Name: JUDD ISSA Facility: [facility]:[place] : 1975 Planned Disposition: Home Anticipated Discharge Date: Discharge Date: Expected LOS: Initial Reviewer: [email or web address] Initial Review Date: 03/25/2019 Generated: 03/25/19 7:45 pm Comments DCP- Discharge Planning Updated by [email or web address]: Adrianne Herndon on 03/25/19 5:[address] Patient Name: JUDD ISSA Admission Status: ER Accout number: [id number] Admission Date: 03-25-2019 : 1975 Admission Diagnosis: Attending: AZALIA MCKEON Current LOS: 1 Anticipated DC Date: Planned Disposition: Home Primary Insurance: MEDICAID [place] Discharge Planning Comments: CM met with patient at bedside. Patient states she lives at home with her spouse (Andrew). She plans on returning to their home upon discharge. She states she feels safe at her home. She states she will have family drive her home upon discharge. She denies any discharge needs at this time. CM will continue to follow and assist as needed with discharge planning / needs. Measurement Advisor: Adrianne Herndon DCPIA - Discharge Planning Initial Assessment Updated by [email or web address]: Adrianne Herndon on 03/25/19 6:36 pm * Is the patient Alert and Oriented? Yes * How many steps to enter\exit or inside your home? * PCP LINDA * [facility]acy [facility] * Preadmission Environment Home with Family * ADLs Independent * Equipment None * List name and contact numbers for known caregivers / representatives who currently or will assist patient after discharge: ANDREW ISSA - [facility]- [phone] * Verbal permission to speak to the caregivers and representatives has been obtained from the patient. N/A * Community resources currently utilized None * Additional services required to return to the preadmission environment? No * Can the patient safely return to the preadmission environment? Yes * Has this patient been hospitalized within the prior 30 days at any hospital? Yes Last DP export: 03/25/19 5:38 p Patient Name: JUDD ISSA Page [id number] at 1845 All edits/amendments must be made on the electronic document DICTATION DATE: 03/25/191843 SENIOR QA ANALYST: RAJI 03/25/191843 RPT#: [id number] DC DATE: STATUS: ADM IN [facility] [address] [place] [address] END OF REPORT
--- NOTE | 2019-03-25 20:00 | NUR ---
UPON ENTERING PTS ROOM FOR ASSESSMENT, ROOM SMELLED OF MARIJUANA. ASKED PT WHAT THE SMELL WAS AND SHE SAID, "I JUST HAD A BOWEL MOVEMENT AND I SPRAYED SOME PERFUME." THE ODOR WAS CLEARLY NOT PERFUME. STAFF OBSERVED THAT PT WAS POSITIVE FOR THC ON UDS. PT STATES, "I WOULD NEVER SMOKE MARIJUANA." PT ASKING FOR PAIN MEDS. PAIN MED NOT DUE. RATES RT QUAD PAIN 7. STATES SHE HAD A CURB BUILDER PUMP LAST TIME SHE WAS HERE. RESP EVEN AND NONLABORED. BBS CTA BUT DIMINISHED. AMBULATORY. BS PRESENT X4 QUADS. STATES SHE HAS HAD DIARRHEA TODAY. STAFF OBSERVED AN EMPTY PACK OF POTATO CHIPS AND CANDY BAR WRAPPER ON HER TABLE. ADMITS TO EATING THIS. INFORMED HER THAT SHE IS ON A CLEAR LIQ DIET. ZOFRAN DRIP AND PROTONIX DRIP INFUSING WITH LR IN RT HAND. CL IN REACH.
[2019-03-25 20:07] VITALS: BP 128/62
--- NOTE | 2019-03-25 21:50 | NUR ---
MEDICATED WITH TRAMADOL FOR C/O ABD PAIN. CL IN REACH.
[2019-03-26 00:02] VITALS: BP 107/62
--- NOTE | 2019-03-26 01:35 | NUR ---
MEDICATED WITH TRAMADOL FOR C/O ABD PAIN RATING 10. SALINE LOCK REMOVED FROM RT HAND DUE TO LEAKING. IV NOW INFUSING IN RT AC. CL IN REACH.
[2019-03-26 03:36] VITALS: BP 110/70
--- NOTE | 2019-03-26 06:41 | NUR ---
BOTH IVS HAVE INFILTRATED TONIGHT. STAFF ATTEMPTED TO RESTART WITHOUT SUCCESS. CONSULT PLACED FOR VASCULAR ACCESS NURSE. SITE NEEDED X2 FOR DRIPS.
[2019-03-26 07:27] LABS: BASOPHILS 0.1 % (0-2); EOSINOPHILS 1.9 % (0-7); HEMATOCRIT 31.9 % (36.0-48.0); HEMOGLOBIN 10.2 g/dL (12-16); IMMATURE GRANULOCYTES 0.1 % (0-5); LYMPHOCYTES 33.4 % (15-50); MCH 25.5 pg (26.0-34.0); MCV 79.8 fL (80.0-100.0); MEAN PLATELET VOLUME 11.8 fL (7.4-10.4); MONOCYTES 10.2 % (2-11); NEUTROPHILS 54.3 % (40-80); PLATELET COUNT 271 10x3/uL (130-400); RDW 15.8 % (11.5-14.5)
[2019-03-26 07:43] LABS: WBC 7.8 10x3/uL (4.8-10.8)
[2019-03-26 07:50] LABS: ALBUMIN 2.5 g/dL (3.4-5.0); ALKALINE PHOSPHATASE 119 U/L (46-116); ALT (SGPT) 14 U/L (10-68); BILIRUBIN - TOTAL 0.21 mg/dL (0.2-1.3); CALC OSMOLALITY 278 mosm/kg (275-300); CALCIUM 8.3 mg/dL (8.5-10.1); CARBON DIOXIDE 25.2 mmol/L (21.0-32.0); CHLORIDE - SERUM 107 mmol/L (98-107); CREATININE - SERUM 0.7 mg/dL (0.6-1.3); GLUCOSE 90 mg/dL (74-106); POTASSIUM - SERUM 3.4 mmol/L (3.5-5.1); SODIUM 141 mmol/L (136-145); UREA NITROGEN 7 mg/dL (7-18); eGFR NON AFRICAN AMERICAN > 90 mL/min (90-120)
--- NOTE | 2019-03-26 08:15 | NUR ---
RESUMING PT CARE, PT IS SITTING UP IN BED ALERT AND ORIENTED X4, CALL LIGHT IN REACH. WILL CONTINUE TO MONITOR AND FOLLOW PLAN OF CARE.
[2019-03-26 11:45] VITALS: BP 109/69
[2019-03-26 12:50] VITALS: Ht 157.5 cm; Wt 67.5 kg
[2019-03-26 16:10] VITALS: BP 133/59
[2019-03-26] MEDS ORDERED: KLONOPIN0.5 MG PO (16:40)
[2019-03-26] MEDS ORDERED: REGLAN10 MG PO (16:41)
[2019-03-26] MEDS ORDERED: ZOFRAN4 MG PO (16:42)
--- NOTE | 2019-03-26 16:46 | NUR ---
PT REQUEST TO GO HOME, SHE IS TOLERATING PO MEDS AND ALL MEALS. I SPOKE WITH PINKY CISNEROS AND HE SAID HE WILL PUT IN THE D/C ORDERS. HE ALSO TOLD ME TO CALL IN ISHMAEL AND LUISANA TO PT PHARMACY. PER PT SHE USES [facility] ON [address].
--- NOTE | 2019-03-26 17:26 | NUR ---
MEDICATIONS CALLED TO [facility] ON [address], KLONIPIN 1 MG TID , ZOFRAN 8 MG Q 6 HOUR PRN, REGLAN 5 MG 1 PO BEFORE MEALS AND AT BEDTIME. SPOKE WITH BOOM.
--- NOTE | 2019-03-26 17:27 | NUR ---
D/C INSTRUCTIONS GIVEN TO PT, PT VERBALIZES UNDERSTANDING TO WATER TREATMENT PLANT SUPERVISOR MEDICATIONS AT [facility] [address]. NO IV TO REMOVE, PT TAKEN TO CAR VIA WHEELCHAIR.
--- NOTE | 2019-03-27 12:15 | MORECARE ---
CASE MANAGEMENT DISCHARGE SUMMARY PATIENT: JUDD ISSA UNIT: [id number] ADM DATE: 03/25/19 AGE: 44 : 79 SEX: F ROOM/BED: D.1204 AUTHOR: KALENDOC PHYSICIAN: REFERRING PHYSICIAN: AZALIA MCKEON MD DATE OF SERVICE: 03/27/19 Discharge Plan Patient Name: JUDD ISSA Facility: [facility]:[place] : 1975 Planned Disposition: Home Anticipated Discharge Date: Discharge Date: 03/26/2019 Expected LOS: Initial Reviewer: [email or web address] Initial Review Date: 03/25/2019 Generated: 03/27/19 1:15 pm Comments DCP- Discharge Planning Updated by [email or web address]: Adrianne Herndon on 03/25/19 5:[address] Patient Name: JUDD ISSA Admission Status: ER Accout number: [id number] Admission Date: 03-25-2019 : 1975 Admission Diagnosis: Attending: AZALIA MCKEON Current LOS: 1 Anticipated DC Date: Planned Disposition: Home Primary Insurance: MEDICAID [place] Discharge Planning Comments: CM met with patient at bedside. Patient states she lives at home with her spouse (Andrew). She plans on returning to their home upon discharge. She states she feels safe at her home. She states she will have family drive her home upon discharge. She denies any discharge needs at this time. CM will continue to follow and assist as needed with discharge planning / needs. Check Clerk: Adrianne Herndon DCPIA - Discharge Planning Initial Assessment Updated by [email or web address]: Adrianne Herndon on 03/25/19 6:36 pm * Is the patient Alert and Oriented? Yes * How many steps to enter\exit or inside your home? * PCP LINDA * Pharmacy [facility] * Preadmission Environment Home with Family * ADLs Independent * Equipment None * List name and contact numbers for known caregivers / representatives who currently or will assist patient after discharge: ANDREW ISSA - [facility]- [phone] * Verbal permission to speak to the caregivers and representatives has been obtained from the patient. N/A * Community resources currently utilized None * Additional services required to return to the preadmission environment? No * Can the patient safely return to the preadmission environment? Yes * Has this patient been hospitalized within the prior 30 days at any hospital? Yes Last DP export: 03/25/19 5:45 p Patient Name: JUDD ISSA Page 61642 at 1215 All edits/amendments must be made on the electronic document DICTATION DATE: 03/27/191214 OPERATIONS AND MAINTENANCE TECHNICAN: RAJI 03/27/19 1215 RPT#: [id number] DC DATE:03/26/19 STATUS: DIS IN [facility] [address] [place] [address] END OF REPORT
== END 2019-03-26 17:28 | disposition home or self-care (01) | DRG 392 ==
LOC: D.ER 02:54 → D.EDHOLD 05:29 → D.M3 05:29 → D.ICU 10:12 → D.M3 15:49
PROVIDERS: Emergency Medicine; Family Medicine; ADMIT Legal Medicine; ATTEND Legal Medicine
DX: K31.84 Gastroparesis (principal); D64.9 Anemia, unspecified; F41.9 Anxiety disorder, unspecified; M32.9 Systemic lupus erythematosus, unspecified; K21.9 Gastro-esophageal reflux disease without esophagitis; F12.99 Cannabis use, unspecified with unspecified cannabis-induced disorder

== ENCOUNTER 2019-03-30 23:52 | Inpatient (IN) | payer MEDICAID ==
[~2019-03-30] VITALS: Ht 157.5 cm; Wt 65.8 kg
[~2019-03-30 23:52] MED LIST changes: +KLONOPIN0.5 MG PO; -LIPITOR40 MG; +LIPITOR40 MG PO
[2019-03-31 01:12] LABS: HEMATOCRIT 32.3 % (36.0-48.0); HEMOGLOBIN 10.7 g/dL (12-16); LYMPHOCYTES 22.6 % (15-50); MCH 26.4 pg (26.0-34.0); MCHC 33.1 g/dL (31.0-37.0); MCV 79.6 fL (80.0-100.0); MEAN PLATELET VOLUME 11.3 fL (7.4-10.4); NEUTROPHILS 65.3 % (40-80); PLATELET COUNT 293 10x3/uL (130-400); RBC 4.06 10x6/uL (4.00-5.40); WBC 8.3 10x3/uL (4.8-10.8)
[2019-03-31 01:14] LABS: APPEARANCE TURBID (CLEAR); BILIRUBIN NEGATIVE (NEGATIVE); COLOR DK YELLOW (YELLOW); GLUCOSE NEGATIVE (NEGATIVE); KETONE NEGATIVE (NEGATIVE); NITRITE NEGATIVE (NEGATIVE); PROTEIN TRACE mg/dL (NEGATIVE); SPECIFIC GRAVITY 1.025 (1.005-1.020); UROBILINOGEN NORMAL (NORMAL)
[2019-03-31 01:19] LABS: AMORPHOUS SEDIMENT >1+ /lpf (NONE SEEN); BACTERIA MODERATE /hpf (NONE SEEN); CALCIUM OXALATE CRYSTALS 0-5 /hpf (NONE SEEN); GRANULAR CAST OCC /lpf (NONE SEEN); HYALINE CAST OCC /lpf (NONE SEEN); MUCUS >1+ /lpf (NONE SEEN); RED CELLS - URINE 0-5 /hpf (0-5); WHITE CELLS - URINE 0-5 /hpf (0-5)
[2019-03-31 01:25] LABS: ALBUMIN 3.1 g/dL (3.4-5.0); ALKALINE PHOSPHATASE 132 U/L (46-116); ALT (SGPT) 18 U/L (10-68); BILIRUBIN - TOTAL 0.22 mg/dL (0.2-1.3); CALC OSMOLALITY 278 mosm/kg (275-300); CALCIUM 8.7 mg/dL (8.5-10.1); CARBON DIOXIDE 27.3 mmol/L (21.0-32.0); CHLORIDE - SERUM 104 mmol/L (98-107); CREATININE - SERUM 0.8 mg/dL (0.6-1.3); GLUCOSE 89 mg/dL (74-106); PROTEIN - SERUM 7.1 g/dL (6.4-8.2); SODIUM 141 mmol/L (136-145); UREA NITROGEN 9 mg/dL (7-18); eGFR NON AFRICAN AMERICAN 83 mL/min (90-120)
[2019-03-31 01:27] LABS: AMYLASE - SERUM 34 U/L (25-115); LIPASE 55 U/L (73-393)
[2019-03-31 01:29] LABS: TROPONIN-I < 0.017 ng/mL (0.000-0.060)
--- NOTE | 2019-03-31 02:00 | NUR ---
PT REFUSING SECOND IV FOR ZOFRAN DRIP. PT REQUESTING A CENTRAL LINE BE PLACED PT STATES THAT SHE REQUESTED A "PORT" BE PUT IN LAST TIME SHE WAS ADMITED PT STATES SHE THOUGHT THE ER COULD PUT IN A "PORT" FOR HER MULTIPLE DRIPS.
--- NOTE | 2019-03-31 03:09 | NUR ---
PT STILL REFUSING SECOND IV AT THIS TIME. PT WOULD REALLY LIKE TO BE MOVED TO A ROOM PT INFORMED I HAVE CALLED FOR ONE SEVERAL TIMES.
--- NOTE | 2019-03-31 03:30 | NUR ---
SPOKE WITH PINKY VIA TELEPHONE PT REQUEST PAIN MED FOR ABD PAIN/SLEEP. SEE EMAR
[2019-03-31 03:57] VITALS: BP 128/61
--- NOTE | 2019-03-31 04:00 | NUR ---
PT PUT HER HOODIE BACK ON OVER GOWN AT THIS TIME. OFFERED BLANKETS BUT REFUSED. PT INFORMED TO WATCH HER IV. PT GIVEN ARM BOARD WITH KERLIX WRAP FOR IV PROTECTION. PT OK WITH POC. STATES THAT THEY DID THIS LAST TIME ALSO.
--- NOTE | 2019-03-31 04:54 | NUR ---
PT UP TO BATHROOM PT C/O NOT BEING PLACED IN A ROOM ON FLOOR YET. PT INFORMED AGAIN THAT THE HOSPITAL IS FULL AND SHE WILL GET ONE SOON ONE BECOMES AVALIABLE
--- NOTE | 2019-03-31 05:50 | NUR ---
PT LYING IN STRECHER AT THIS TIME. EYES CLOSED RESP EVEN AND UNLABORED.
[2019-03-31 06:27] VITALS: BP 106/60
--- NOTE | 2019-03-31 07:00 | NUR ---
ASSUMED CARE OF PT. PT RESTING IN BED WITH EYES CLOSED. AROUSES EASILY. DENIES ANY C/O OR NEED, RESP EVEN/UNLABORED. SKIN W/D/P. IVF AND PROTONIX INFUSING TO RAC VIA PUMP WITHOUT COMPLICATIONS. CL WITHIN EASY REACH. INFORMED PT OF POC : NPO AND WAITINGON ROOM ASSIGNMENT. VERB UNDER
--- NOTE | 2019-03-31 07:00 | NUR ---
REPORT GIVEN TO ED STYLES
[2019-03-31 07:29] VITALS: BMI 26.6
[2019-03-31 07:30] VITALS: BP 113/52
--- NOTE | 2019-03-31 08:51 | NUR ---
DR SABILLON AT BS
[2019-03-31 10:17] VITALS: BP 107/62
[2019-03-31 20:00] VITALS: BP 110/49
--- NOTE | 2019-03-31 20:00 | NUR ---
PATIENT RECEIVED SITTING UP IN BED.LEFT WRIST 125CC/HR NS PROTONIX 10CC/HR. ASSESSMENT & VITAL SIGNS DONE. CALL LIGHT WITHIN REACH. WILL CONTINUE TO MONITOR.
[2019-03-31 20:11] LABS: ERYTHROCYTE SEDIMENTATION RATE 23 mm/hr (0-20)
--- NOTE | 2019-03-31 22:33 | NUR ---
PATIENT C/O PAIN WANTED CALLED. PINKY CRESPO CALLED & LEFT MESSAGE. PINKY CRESPO APRN CALLED BACK. REPORTED PATIENT WANTING STRONGER MEDICATION THAN TYLENOL & TRAMADOL. BLAYNE STATED " CONTINUE ORDER." PATIENT BED LOW.
--- NOTE | 2019-03-31 23:13 | NUR ---
PATIENT CALLED THIS NURSE TO DISCONNECT HER IV. PATIENT DISCONNECTED & WALKED OUT OF ROOM. PATIENT STATED " I AM GOING FOR SOME FRESH AIR."
[2019-04-01] VITALS: BP 126/75
--- NOTE | 2019-04-01 04:11 | NUR ---
PATIENT ASKING MULTIPLE TIMES TO EAT REGULAR FOOD. PATIENT TOLD MULTIPLE TIMES SHE IS ON CLEAR LIQUIDS ONLY. PATIENT NONCOMPLIANT WITH DIET. PATIENT OUT OF ROOM SEVERAL TIMES. PATIENT CALL LIGHT ON. TECH WENT TO ROOM. PATIENT WANTED TECH TO TAKE HER DOWN TO SNACK ROOM. PATIENT WAS NOT TAKEN & REMINDED SHE IS ON CLEAR LIQUID DIET ONLY.
[2019-04-01 04:15] VITALS: BP 104/41
[2019-04-01 07:51] LABS: BASOPHILS 0.2 % (0-2); EOSINOPHILS 2.5 % (0-7); HEMATOCRIT 29.6 % (36.0-48.0); HEMOGLOBIN 9.5 g/dL (12-16); IMMATURE GRANULOCYTES 0.2 % (0-5); LYMPHOCYTES 37.9 % (15-50); MCH 25.5 pg (26.0-34.0); MCHC 32.1 g/dL (31.0-37.0); MCV 79.6 fL (80.0-100.0); MEAN PLATELET VOLUME 12.2 fL (7.4-10.4); MONOCYTES 13.4 % (2-11); NEUTROPHILS 45.8 % (40-80); PLATELET COUNT 309 10x3/uL (130-400); RBC 3.72 10x6/uL (4.00-5.40); RDW 15.5 % (11.5-14.5)
[2019-04-01 08:01] LABS: WBC 5.6 10x3/uL (4.8-10.8)
[2019-04-01 08:15] LABS: ALBUMIN 2.6 g/dL (3.4-5.0); ALKALINE PHOSPHATASE 112 U/L (46-116); ALT (SGPT) 16 U/L (10-68); BILIRUBIN - TOTAL 0.14 mg/dL (0.2-1.3); CALC OSMOLALITY 280 mosm/kg (275-300); CALCIUM 8.1 mg/dL (8.5-10.1); CARBON DIOXIDE 22.1 mmol/L (21.0-32.0); CHLORIDE - SERUM 110 mmol/L (98-107); CREATININE - SERUM 0.7 mg/dL (0.6-1.3); GLUCOSE 80 mg/dL (74-106); PROTEIN - SERUM 5.9 g/dL (6.4-8.2); SODIUM 143 mmol/L (136-145); UREA NITROGEN 4 mg/dL (7-18); eGFR NON AFRICAN AMERICAN > 90 mL/min (90-120)
[2019-04-01 09:39] VITALS: BP 100/69
[2019-04-01 10:22] VITALS: Ht 157.5 cm; Wt 65.8 kg
[2019-04-01 13:26] VITALS: BP 119/77
--- NOTE | 2019-04-01 14:53 | NUR ---
THE PATIENT WAS LYING IN BED AND WATCHING TELEVISION WHEN STAFF ENTERED HER ROOM. BE DIS IN TH ELOW POSITION WITH SIDERAILS X2 AND CALL LIGHT WITHIN REACH. THE PATIENT DEMONSTRATES APPROPRIATE USE OF A CALL LIGHT. THE PATIENT APPEARS COMFORTABLE WITH NO QUESTIONS OR CONCERNS AT THIS TIME.
[2019-04-01 16:14] VITALS: BP 107/51
--- NOTE | 2019-04-01 19:58 | NUR ---
PT UP ADLIB, WALKED OUTSIDE WITH UPON RETURN , CLEANED, FLUSHED AND REATTACHED IV'S, L AC AND LFA PATENT AND RUNNING, NO NEEDS NOTED AT THIS TIME, FLUIDS AND CALL LIGHT WITHIN REACH
--- NOTE | 2019-04-01 22:54 | NUR ---
PT PULLED BATHROOM LIGHT, PT FOUND ON FLOOR, STATED WAS ON HER WAY TOSIT ON TOILET AND VOMIT INTO TRASH CAN WHEN SHE GOT DIZZY AND FELL TO FLOOR, NO INJURIES, WHEN THIS NURSE HAD JUST LEFT THE ROOM AT 2245 THE PT WAS SITTING UP IN BED SPITTING INTO TRASH CAN, C/O BLOOD TINGD EMESIS, DR. DOUGHERTY WAS CALLED FOR ORDERS, AT 2345 PT WAS ON PHONE AND STATED SHE WAS CALLING HER TO TELL HIM ABOUT THE FALL AND FOR HIM TO COME TAKE HER TO [facility] BECAUSE SHE DIDN'T THINK WE WERE DOING ANYTHING FOR HER AND DR DOUGHERTY WOULD NOT INCREASE HER PAIN MEDICATION SHE WAS UPSET AND WANTED TO LEAVE AMA, AFTER MYSELF AND THE CHARGE NURSE TALKING TO HER A COUPLE OF TIMES SHE CALMED AND FINALLY DECIDED TO TRY TAKING THE TRAMADOL SHE HAD BEEN REFUSING FOR PAIN SHE WAS UPSET BECAUSE SHE WANTED PERCOCET INSTEAD AND IT WASN'T DUE WHEN SHE WANTED IT. PT'S ENTIRE ATTITUDE AND DEMEANOR CHANGED AROUND 2200 AFTER SHE MADE A TRIP OUTSIDE THE HOSPITAL.
[2019-04-02] VITALS: BP 144/56
[2019-04-02 00:42] LABS: BASOPHILS 0.3 % (0-2); EOSINOPHILS 2.4 % (0-7); HEMOGLOBIN 9.3 g/dL (12-16); IMMATURE GRANULOCYTES 0.3 % (0-5); LYMPHOCYTES 36.5 % (15-50); MCH 25.3 pg (26.0-34.0); MCHC 32.1 g/dL (31.0-37.0); MEAN PLATELET VOLUME 11.1 fL (7.4-10.4); NEUTROPHILS 47.5 % (40-80); PLATELET COUNT 285 10x3/uL (130-400); RBC 3.67 10x6/uL (4.00-5.40); RDW 15.3 % (11.5-14.5); WBC 6.3 10x3/uL (4.8-10.8)
[2019-04-02 04:30] VITALS: BP 140/57
[2019-04-02 07:05] LABS: BASOPHILS 0.2 % (0-2); EOSINOPHILS 2.3 % (0-7); HEMATOCRIT 28.2 % (36.0-48.0); IMMATURE GRANULOCYTES 0.2 % (0-5); LYMPHOCYTES 35.6 % (15-50); MCH 25.1 pg (26.0-34.0); MCHC 31.9 g/dL (31.0-37.0); MCV 78.8 fL (80.0-100.0); MEAN PLATELET VOLUME 11.7 fL (7.4-10.4); MONOCYTES 14.4 % (2-11); NEUTROPHILS 47.3 % (40-80); PLATELET COUNT 285 10x3/uL (130-400); RBC 3.58 10x6/uL (4.00-5.40); RDW 15.3 % (11.5-14.5)
[2019-04-02 07:20] LABS: ALBUMIN 2.6 g/dL (3.4-5.0); ALKALINE PHOSPHATASE 110 U/L (46-116); ALT (SGPT) 15 U/L (10-68); BILIRUBIN - TOTAL 0.16 mg/dL (0.2-1.3); CALC OSMOLALITY 281 mosm/kg (275-300); CALCIUM 8.1 mg/dL (8.5-10.1); CARBON DIOXIDE 21.4 mmol/L (21.0-32.0); CHLORIDE - SERUM 111 mmol/L (98-107); CREATININE - SERUM 0.7 mg/dL (0.6-1.3); GLUCOSE 83 mg/dL (74-106); INR 1.16 (0.85-1.17); POTASSIUM - SERUM 3.2 mmol/L (3.5-5.1); PROTEIN - SERUM 5.7 g/dL (6.4-8.2); PROTIME 14.3 SECONDS (11.6-15.0); SODIUM 144 mmol/L (136-145); eGFR NON AFRICAN AMERICAN > 90 mL/min (90-120)
[2019-04-02 07:21] LABS: UREA NITROGEN 2 mg/dL (7-18)
--- NOTE | 2019-04-02 07:45 | NUR ---
ASSESSMENT COMPLETE. IV TO L WRIST AND MIDLINE TO L AC PATENT. NPO FOR EGD TODAY. DENIES ANY NEEDS AT THIS TIME.
[2019-04-02 09:39] VITALS: BP 141/57
--- NOTE | 2019-04-02 11:00 | NUR ---
SITTING UP IN RECLINER. NO CHANGES NOTED AT THIS TIME.
[2019-04-02 12:53] VITALS: BP 112/80
--- NOTE | 2019-04-02 13:00 | NUR ---
DROWSY BUT AWAKENS TO VERBAL STIMULI EASILY.
[2019-04-02 14:12] LABS: ANA REFLEX - ANTICHROMATIN ABS <0.2 AI (0.0-0.9); ANA REFLEX - CENTROMERE B ABS <0.2 AI (0.0-0.9); ANA REFLEX - DBL STRANDED DNA <1 IU/mL (0-9); ANA REFLEX - DIRECT Positive (Negative); ANA REFLEX - JO-1 AB <0.2 AI (0.0-0.9); ANA REFLEX - RNP ANTIBODIES 1.9 AI (0.0-0.9); ANA REFLEX - SCL-70 <0.2 AI (0.0-0.9); ANA REFLEX - SJOGRENS AB SSA <0.2 AI (0.0-0.9); ANA REFLEX - SJOGRENS AB SSB <0.2 AI (0.0-0.9); ANA REFLEX - SMITH AB <0.2 AI (0.0-0.9)
--- NOTE | 2019-04-02 14:42 | NUR ---
OFF FLOOR TO GI LAB FOR EGD VIA BED.
--- NOTE | 2019-04-02 15:29 | NUR ---
RETURNED TO ROOM FROM GI LAB VIA BED.
[2019-04-02] MEDS ORDERED: TRAZODONE HCL150 MG PO (15:53)
[2019-04-02] MEDS ORDERED: REGLAN5 MG PO (15:54)
[2019-04-02] MEDS ORDERED: PEPCID AC20 MG PO (16:20)
[2019-04-02 16:57] VITALS: BP 134/76
== END 2019-04-02 17:46 | disposition home or self-care (01) | DRG 391 ==
LOC: D.ER 23:52 → D.M3 03-31 01:23 → D.EDHOLD 03-31 01:23 → D.M3 03-31 18:18
PROVIDERS: Emergency Medicine; Family Medicine; Internal Medicine Gastroenterology; ADMIT Legal Medicine; ATTEND Legal Medicine
PROC: 05HC33Z Insertion of Infusion Device into Left Basilic Vein, Percutaneous Approach (ICD-10-PCS; 2019-04-01)
PROC: B54NZZA Ultrasonography of Left Upper Extremity Veins, Guidance (ICD-10-PCS; 2019-04-01)
PROC: 0DB68ZX Excision of Stomach, Via Natural or Artificial Opening Endoscopic, Diagnostic (ICD-10-PCS; 2019-04-02)
PROC: 0DB58ZX Excision of Esophagus, Via Natural or Artificial Opening Endoscopic, Diagnostic (ICD-10-PCS; 2019-04-02)
PROC: 0DB98ZX Excision of Duodenum, Via Natural or Artificial Opening Endoscopic, Diagnostic (ICD-10-PCS; principal; 2019-04-02 14:55)
DX: K20.9 Esophagitis, unspecified (principal); K29.71 Gastritis, unspecified, with bleeding; K29.81 Duodenitis with bleeding; K31.84 Gastroparesis; K22.8 Other specified diseases of esophagus; M32.9 Systemic lupus erythematosus, unspecified

== ENCOUNTER 2019-04-18 14:19 | Emergency (ER) | payer MEDICAID ==
[~2019-04-18] VITALS: Ht 157.5 cm; Wt 65.9 kg
[~2019-04-18 14:19] MED LIST changes: +PEPCID AC20 MG PO; +REGLAN5 MG PO; +TRAZODONE HCL150 MG PO
[2019-04-18 14:41] VITALS: Ht 157.5 cm; Wt 65.9 kg
[2019-04-18 15:06] LABS: BASOPHILS 0.1 % (0-2); EOSINOPHILS 0.6 % (0-7); HEMATOCRIT 37.1 % (36.0-48.0); IMMATURE GRANULOCYTES 0.4 % (0-5); LYMPHOCYTES 16.8 % (15-50); MCH 25.9 pg (26.0-34.0); MCHC 32.3 g/dL (31.0-37.0); MCV 80.1 fL (80.0-100.0); MEAN PLATELET VOLUME 11.8 fL (7.4-10.4); NEUTROPHILS 73.1 % (40-80); PLATELET COUNT 264 10x3/uL (130-400); RBC 4.63 10x6/uL (4.00-5.40); RDW 15.4 % (11.5-14.5); WBC 10.8 10x3/uL (4.8-10.8)
[2019-04-18 15:26] LABS: ALBUMIN 3.3 g/dL (3.4-5.0); ALKALINE PHOSPHATASE 123 U/L (46-116); ALT (SGPT) 21 U/L (10-68); CALC OSMOLALITY 276 mosm/kg (275-300); CARBON DIOXIDE 26.2 mmol/L (21.0-32.0); CHLORIDE - SERUM 105 mmol/L (98-107); CREATININE - SERUM 0.6 mg/dL (0.6-1.3); GLUCOSE 97 mg/dL (74-106); POTASSIUM - SERUM 3.4 mmol/L (3.5-5.1); PROTEIN - SERUM 6.5 g/dL (6.4-8.2); SODIUM 140 mmol/L (136-145); UREA NITROGEN 7 mg/dL (7-18); eGFR NON AFRICAN AMERICAN > 90 mL/min (90-120)
[2019-04-18 15:29] LABS: AMYLASE - SERUM 48 U/L (25-115); LIPASE 69 U/L (73-393); TROPONIN-I < 0.017 ng/mL (0.000-0.060)
[2019-04-18] MEDS ORDERED: PHENERGAN25 M1 PO (15:44)
[2019-04-18] MEDS ORDERED: CARAFATE1 G PO (15:44)
[2019-04-18 15:51] LABS: APPEARANCE HAZY (CLEAR); BILIRUBIN NEGATIVE (NEGATIVE); COLOR YELLOW (YELLOW); GLUCOSE NEGATIVE (NEGATIVE); KETONE MODERATE mg/dL (NEGATIVE); NITRITE NEGATIVE (NEGATIVE); PROTEIN NEGATIVE (NEGATIVE); SPECIFIC GRAVITY 1.015 (1.005-1.020); UROBILINOGEN NORMAL (NORMAL)
[2019-04-18 15:52] LABS: EPITHELIAL CELLS RARE /hpf (0-5)
[2019-04-18] MEDS ORDERED: MACROBID100 MG PO (18:18)
[2019-04-18 19:06] VITALS: BP 132/76
== END 2019-04-18 19:07 | disposition home or self-care (01) ==
LOC: D.ER 14:19
PROVIDERS: Emergency Medicine
DX: K20.9 Esophagitis, unspecified (principal); K29.80 Duodenitis without bleeding

== ENCOUNTER 2019-05-06 12:24 | Emergency (ER) | payer MEDICAID ==
[~2019-05-06] VITALS: Ht 157.5 cm; Wt 63.6 kg
[2019-05-06 12:29] VITALS: Ht 157.5 cm; Wt 63.6 kg
[2019-05-06 13:21] LABS: ALBUMIN 3.2 g/dL (3.4-5.0); ALKALINE PHOSPHATASE 116 U/L (46-116); ALT (SGPT) 18 U/L (10-68); BILIRUBIN - TOTAL 0.11 mg/dL (0.2-1.3); CALC OSMOLALITY 283 mosm/kg (275-300); CALCIUM 8.6 mg/dL (8.5-10.1); CARBON DIOXIDE 23.9 mmol/L (21.0-32.0); CHLORIDE - SERUM 108 mmol/L (98-107); CREATININE - SERUM 0.7 mg/dL (0.6-1.3); GLUCOSE 96 mg/dL (74-106); POTASSIUM - SERUM 3.4 mmol/L (3.5-5.1); PROTEIN - SERUM 6.6 g/dL (6.4-8.2); SODIUM 142 mmol/L (136-145); UREA NITROGEN 15 mg/dL (7-18); eGFR NON AFRICAN AMERICAN > 90 mL/min (90-120)
[2019-05-06 13:32] LABS: CKMB 0.7 U/L (0.0-3.6); CREATINE KINASE 38 UL (21-215); TROPONIN-I < 0.017 ng/mL (0.000-0.060)
[2019-05-06 13:47] LABS: BASOPHILS 0.3 % (0-2); EOSINOPHILS 0.7 % (0-7); HEMATOCRIT 34.8 % (36.0-48.0); HEMOGLOBIN 11.4 g/dL (12-16); IMMATURE GRANULOCYTES 0.3 % (0-5); LYMPHOCYTES 19.3 % (15-50); MCH 25.8 pg (26.0-34.0); MCHC 32.8 g/dL (31.0-37.0); MCV 78.7 fL (80.0-100.0); MEAN PLATELET VOLUME 11.9 fL (7.4-10.4); MONOCYTES 10.2 % (2-11); NEUTROPHILS 69.2 % (40-80); PLATELET COUNT 246 10x3/uL (130-400); RBC 4.42 10x6/uL (4.00-5.40); RDW 15.6 % (11.5-14.5); WBC 11.2 10x3/uL (4.8-10.8)
[2019-05-06 17:07] VITALS: BP 134/76
== END 2019-05-06 17:03 | disposition home or self-care (01) ==
LOC: D.ER 12:24
PROVIDERS: Emergency Medicine
DX: M54.12 Radiculopathy, cervical region (principal)

== ENCOUNTER 2019-05-13 14:24 | Emergency (ER) | payer MEDICAID ==
[2019-05-06 12:29] VITALS: BMI 25.6
== END 2019-05-13 14:45 | disposition left against medical advice (07) ==
LOC: D.ER 14:24
DX: R10.9 Unspecified abdominal pain (principal); K31.84 Gastroparesis; K92.2 Gastrointestinal hemorrhage, unspecified

== ENCOUNTER 2019-05-13 19:22 | Emergency (ER) | payer MEDICAID ==
[~2019-05-13] VITALS: Ht 157.5 cm; Wt 68.2 kg
[2019-05-13 19:26] VITALS: BP 132/55; Ht 157.5 cm; Wt 68.2 kg
== END 2019-05-13 20:15 | disposition left against medical advice (07) ==
LOC: D.ER 19:22
DX: R10.9 Unspecified abdominal pain (principal); K31.84 Gastroparesis; K92.2 Gastrointestinal hemorrhage, unspecified

== ENCOUNTER 2019-05-20 17:25 | Emergency (ER) | payer MEDICAID ==
[~2019-05-20] VITALS: Ht 157.5 cm; Wt 63.6 kg
[2019-05-20 17:50] VITALS: Ht 157.5 cm; Wt 63.6 kg
[2019-05-20 18:50] LABS: APPEARANCE CLEAR (CLEAR); BILIRUBIN NEGATIVE (NEGATIVE); COLOR YELLOW (YELLOW); GLUCOSE NEGATIVE (NEGATIVE); KETONE NEGATIVE (NEGATIVE); NITRITE NEGATIVE (NEGATIVE); PROTEIN NEGATIVE (NEGATIVE); UROBILINOGEN NORMAL (NORMAL)
[2019-05-20 18:51] LABS: BACTERIA MANY /hpf (NONE SEEN); MUCUS >1+ /lpf (NONE SEEN); WHITE CELLS - URINE 0-5 /hpf (0-5)
[2019-05-20 19:05] LABS: BASOPHILS 0.1 % (0-2); EOSINOPHILS 0.5 % (0-7); HEMOGLOBIN 12.5 g/dL (12-16); IMMATURE GRANULOCYTES 0.3 % (0-5); LYMPHOCYTES 18.9 % (15-50); MCHC 32.9 g/dL (31.0-37.0); MCV 79.2 fL (80.0-100.0); MEAN PLATELET VOLUME 11.2 fL (7.4-10.4); MONOCYTES 7.1 % (2-11); NEUTROPHILS 73.1 % (40-80); PLATELET COUNT 318 10x3/uL (130-400); RDW 15.7 % (11.5-14.5); WBC 11.8 10x3/uL (4.8-10.8)
[2019-05-20 19:16] LABS: HCG SERUM NEGATIVE (NEGATIVE)
[2019-05-20 19:23] LABS: ALBUMIN 3.6 g/dL (3.4-5.0); ALKALINE PHOSPHATASE 139 U/L (46-116); ALT (SGPT) 26 U/L (10-68); BILIRUBIN - TOTAL 0.22 mg/dL (0.2-1.3); CALC OSMOLALITY 276 mosm/kg (275-300); CALCIUM 9.2 mg/dL (8.5-10.1); CARBON DIOXIDE 26.3 mmol/L (21.0-32.0); CHLORIDE - SERUM 103 mmol/L (98-107); CREATININE - SERUM 0.7 mg/dL (0.6-1.3); GLUCOSE 96 mg/dL (74-106); POTASSIUM - SERUM 3.8 mmol/L (3.5-5.1); PROTEIN - SERUM 7.4 g/dL (6.4-8.2); SODIUM 139 mmol/L (136-145); UREA NITROGEN 10 mg/dL (7-18); eGFR NON AFRICAN AMERICAN > 90 mL/min (90-120)
[2019-05-20 19:28] LABS: AMYLASE - SERUM 62 U/L (25-115); LIPASE 78 U/L (73-393)
[2019-05-20 19:50] LABS: TROPONIN-I < 0.017 ng/mL (0.000-0.060)
[2019-05-20] MEDS ORDERED: TYLENOL W/CODEI1 TAB PO (20:22)
[2019-05-20 21:26] VITALS: BP 124/76
== END 2019-05-20 21:25 | disposition home or self-care (01) ==
LOC: D.ER 17:25
PROVIDERS: Family Medicine
DX: R10.2 Pelvic and perineal pain (principal)

== ENCOUNTER → 2019-06-01 14:31 | Outpatient (CLI) | payer MEDICAID ==
[2019-05-20 17:50] VITALS: BMI 25.6
[~2019-06-01 14:31] MED LIST changes: +CARAFATE1 G/10 ML PO; +TYLENOL W/CODEI1 TAB PO
== END | disposition home or self-care (01) ==
LOC: D.RAD 14:31
DX: M54.5 Low back pain (principal)

== ENCOUNTER 2019-06-04 20:31 | Emergency (ER) | payer MEDICAID ==
[~2019-06-04 20:31] MED LIST changes: -CARAFATE1 G/10 ML PO
[2019-06-04 20:41] VITALS: BMI 25.6
[2019-06-04 21:55] LABS: BASOPHILS 0.2 % (0-2); EOSINOPHILS 1.2 % (0-7); HEMATOCRIT 35.3 % (36.0-48.0); HEMOGLOBIN 11.5 g/dL (12-16); IMMATURE GRANULOCYTES 0.2 % (0-5); LYMPHOCYTES 22.3 % (15-50); MCH 25.6 pg (26.0-34.0); MCHC 32.6 g/dL (31.0-37.0); MCV 78.4 fL (80.0-100.0); MEAN PLATELET VOLUME 11.6 fL (7.4-10.4); MONOCYTES 9.2 % (2-11); NEUTROPHILS 66.9 % (40-80); PLATELET COUNT 279 10x3/uL (130-400); RDW 15.6 % (11.5-14.5); WBC 9.9 10x3/uL (4.8-10.8)
[2019-06-04 21:58] LABS: APPEARANCE CLEAR (CLEAR); BILIRUBIN NEGATIVE (NEGATIVE); COLOR YELLOW (YELLOW); GLUCOSE NEGATIVE (NEGATIVE); KETONE NEGATIVE (NEGATIVE); NITRITE NEGATIVE (NEGATIVE); PROTEIN NEGATIVE (NEGATIVE); RED CELLS - URINE OCC /hpf (0-5); UROBILINOGEN NORMAL (NORMAL); WHITE CELLS - URINE 0-5 /hpf (0-5)
[2019-06-04 22:00] LABS: BACTERIA MODERATE /hpf (NONE SEEN); MUCUS <1+ /lpf (NONE SEEN)
[2019-06-04 22:04] LABS: ALBUMIN 3.3 g/dL (3.4-5.0); ALKALINE PHOSPHATASE 134 U/L (46-116); ALT (SGPT) 20 U/L (10-68); AMYLASE - SERUM 66 U/L (25-115); C-REACTIVE PROTEIN 0.8 mg/dL (0.0-0.9); CALC OSMOLALITY 277 mosm/kg (275-300); CALCIUM 9.1 mg/dL (8.5-10.1); CHLORIDE - SERUM 106 mmol/L (98-107); CREATININE - SERUM 0.8 mg/dL (0.6-1.3); GLUCOSE 94 mg/dL (74-106); LIPASE 87 U/L (73-393); POTASSIUM - SERUM 3.1 mmol/L (3.5-5.1); PROTEIN - SERUM 6.7 g/dL (6.4-8.2); SODIUM 140 mmol/L (136-145); TROPONIN-I < 0.017 ng/mL (0.000-0.060); UREA NITROGEN 10 mg/dL (7-18); eGFR NON AFRICAN AMERICAN 83 mL/min (90-120)
[2019-06-04] MEDS ORDERED: MACROBID100 MG PO (23:56)
[2019-06-04] MEDS ORDERED: CARAFATE1 G/10 ML PO (23:56)
[2019-06-05 00:16] VITALS: BP 168/81
== END 2019-06-05 02:17 | disposition home or self-care (01) ==
LOC: D.ER 20:31
PROVIDERS: Family Medicine
DX: R10.9 Unspecified abdominal pain (principal); K31.84 Gastroparesis; N39.0 Urinary tract infection, site not specified

== ENCOUNTER 2019-06-08 13:20 | Emergency (ER) | payer MEDICAID ==
[~2019-06-08] VITALS: Ht 157.5 cm; Wt 63.6 kg
[~2019-06-08 13:20] MED LIST changes: +CARAFATE1 G/10 ML PO
[2019-06-08 13:23] VITALS: Ht 157.5 cm; Wt 63.6 kg
[2019-06-08 14:13] LABS: ALKALINE PHOSPHATASE 139 U/L (46-116); ALT (SGPT) 21 U/L (10-68); BILIRUBIN - TOTAL 0.16 mg/dL (0.2-1.3); CALC OSMOLALITY 277 mosm/kg (275-300); CALCIUM 8.7 mg/dL (8.5-10.1); CARBON DIOXIDE 23.4 mmol/L (21.0-32.0); CHLORIDE - SERUM 108 mmol/L (98-107); CREATININE - SERUM 0.7 mg/dL (0.6-1.3); GLUCOSE 99 mg/dL (74-106); POTASSIUM - SERUM 3.3 mmol/L (3.5-5.1); PROTEIN - SERUM 6.3 g/dL (6.4-8.2); SODIUM 141 mmol/L (136-145); UREA NITROGEN 5 mg/dL (7-18); eGFR NON AFRICAN AMERICAN > 90 mL/min (90-120)
[2019-06-08 14:18] LABS: BASOPHILS 0.2 % (0-2); EOSINOPHILS 0.7 % (0-7); HEMATOCRIT 34.3 % (36.0-48.0); HEMOGLOBIN 11.3 g/dL (12-16); IMMATURE GRANULOCYTES 0.4 % (0-5); LYMPHOCYTES 15.1 % (15-50); MCH 25.8 pg (26.0-34.0); MCHC 32.9 g/dL (31.0-37.0); MCV 78.3 fL (80.0-100.0); MEAN PLATELET VOLUME 11.5 fL (7.4-10.4); MONOCYTES 9.3 % (2-11); NEUTROPHILS 74.3 % (40-80); PLATELET COUNT 290 10x3/uL (130-400); RBC 4.38 10x6/uL (4.00-5.40); RDW 15.6 % (11.5-14.5); WBC 9.6 10x3/uL (4.8-10.8)
[2019-06-08 14:22] LABS: C-REACTIVE PROTEIN 2.5 mg/dL (0.0-0.9); CREATINE KINASE 88 UL (21-215); LIPASE 59 U/L (73-393); MAGNESIUM - SERUM 1.9 mg/dL (1.8-2.4); THYROID STIMULATING HORMONE 0.22 uIU/mL (0.36-3.74); TROPONIN-I < 0.017 ng/mL (0.000-0.060)
[2019-06-08 15:02] LABS: UDS - AMPHET NEGATIVE QUAL (NEGATIVE); UDS - BARB NEGATIVE QUAL (NEGATIVE); UDS - BENZO NEGATIVE QUAL (NEGATIVE); UDS - COCAINE NEGATIVE QUAL (NEGATIVE); UDS - OPIATE NEGATIVE QUAL (NEGATIVE); UDS - PCP NEGATIVE QUAL (NEGATIVE); UDS - THC POSITIVE QUAL (NEGATIVE)
[2019-06-08 15:09] LABS: APPEARANCE CLEAR (CLEAR); BILIRUBIN NEGATIVE (NEGATIVE); COLOR YELLOW (YELLOW); GLUCOSE NEGATIVE (NEGATIVE); HCG URINE NEGATIVE (NEGATIVE); KETONE NEGATIVE (NEGATIVE); NITRITE NEGATIVE (NEGATIVE); PROTEIN NEGATIVE (NEGATIVE); UROBILINOGEN NORMAL (NORMAL)
[2019-06-08 15:11] LABS: BACTERIA MODERATE /hpf (NONE SEEN); EPITHELIAL CELLS 0-5 /hpf (0-5); MUCUS <1+ /lpf (NONE SEEN); RED CELLS - URINE 0-5 /hpf (0-5); WHITE CELLS - URINE OCC /hpf (0-5)
[2019-06-08] MEDS ORDERED: ZOFRAN ODT4 MG/UDTAB PO (16:02)
[2019-06-08 16:46] VITALS: BP 134/79
== END 2019-06-08 16:47 | disposition home or self-care (01) ==
LOC: D.ER 13:20
PROVIDERS: Family Medicine
DX: R55 Syncope and collapse (principal); G89.29 Other chronic pain; E07.89 Other specified disorders of thyroid; R11.2 Nausea with vomiting, unspecified

== ENCOUNTER 2019-06-14 17:48 | Emergency (ER) | payer MEDICAID ==
[~2019-06-14] VITALS: Ht 157.5 cm; Wt 63.6 kg
[~2019-06-14 17:48] MED LIST changes: +ZOFRAN ODT4 MG/UDTAB PO
[2019-06-14 17:54] VITALS: BP 130/92; Ht 157.5 cm; Wt 63.6 kg
[2019-06-14] MEDS ORDERED: TRAZODONE HCL150 MG PO (17:55)
[2019-06-14 18:25] LABS: BASOPHILS 0.1 % (0-2); HEMATOCRIT 31.9 % (36.0-48.0); HEMOGLOBIN 10.6 g/dL (12-16); IMMATURE GRANULOCYTES 0.3 % (0-5); LYMPHOCYTES 17.9 % (15-50); MCH 25.9 pg (26.0-34.0); MCHC 33.2 g/dL (31.0-37.0); MCV 77.8 fL (80.0-100.0); MEAN PLATELET VOLUME 10.8 fL (7.4-10.4); MONOCYTES 12.3 % (2-11); NEUTROPHILS 68.4 % (40-80); PLATELET COUNT 266 10x3/uL (130-400); RDW 15.5 % (11.5-14.5); WBC 10.6 10x3/uL (4.8-10.8)
[2019-06-14 18:57] LABS: ALBUMIN 2.8 g/dL (3.4-5.0); ALKALINE PHOSPHATASE 138 U/L (46-116); ALT (SGPT) 15 U/L (10-68); BILIRUBIN - TOTAL 0.25 mg/dL (0.2-1.3); CALC OSMOLALITY 274 mosm/kg (275-300); CALCIUM 8.1 mg/dL (8.5-10.1); CARBON DIOXIDE 25.5 mmol/L (21.0-32.0); CHLORIDE - SERUM 106 mmol/L (98-107); CREATININE - SERUM 0.7 mg/dL (0.6-1.3); GLUCOSE 102 mg/dL (74-106); POTASSIUM - SERUM 3.3 mmol/L (3.5-5.1); PROTEIN - SERUM 5.5 g/dL (6.4-8.2); SODIUM 139 mmol/L (136-145); UREA NITROGEN 5 mg/dL (7-18); eGFR NON AFRICAN AMERICAN > 90 mL/min (90-120)
[2019-06-14 20:42] LABS: ERYTHROCYTE SEDIMENTATION RATE 38 mm/hr (0-20)
[2019-06-14] MEDS ORDERED: ZOFRAN4 MG PO (21:10)
[2019-06-14] MEDS ORDERED: PREDNISONE20 MG PO (21:10)
== END 2019-06-14 21:20 | disposition home or self-care (01) ==
LOC: D.ER 17:48
PROVIDERS: Emergency Medicine
DX: M32.9 Systemic lupus erythematosus, unspecified (principal)

== ENCOUNTER 2019-06-19 15:13 | Emergency (ER) | payer MEDICAID ==
[~2019-06-19] VITALS: Ht 157.5 cm; Wt 63.6 kg
[~2019-06-19 15:13] MED LIST changes: +PREDNISONE20 MG PO
[2019-06-19 15:36] VITALS: Ht 157.5 cm; Wt 63.6 kg
[2019-06-19 17:09] LABS: HEMATOCRIT 33.8 % (36.0-48.0); HEMOGLOBIN 11.3 g/dL (12-16); MCH 25.6 pg (26.0-34.0); MCHC 33.4 g/dL (31.0-37.0); MCV 76.6 fL (80.0-100.0); MEAN PLATELET VOLUME 10.7 fL (7.4-10.4); PLATELET COUNT 309 10x3/uL (130-400); RBC 4.41 10x6/uL (4.00-5.40); RDW 14.9 % (11.5-14.5); WBC 23.5 10x3/uL (4.8-10.8)
[2019-06-19 17:13] LABS: ALKALINE PHOSPHATASE 113 U/L (46-116); ALT (SGPT) 9 U/L (10-68); BILIRUBIN - TOTAL 0.21 mg/dL (0.2-1.3); CALC OSMOLALITY 278 mosm/kg (275-300); CALCIUM 8.6 mg/dL (8.5-10.1); CARBON DIOXIDE 26.4 mmol/L (21.0-32.0); CHLORIDE - SERUM 105 mmol/L (98-107); CREATININE - SERUM 0.7 mg/dL (0.6-1.3); GLUCOSE 93 mg/dL (74-106); PROTEIN - SERUM 6.3 g/dL (6.4-8.2); SODIUM 140 mmol/L (136-145); UREA NITROGEN 13 mg/dL (7-18); eGFR NON AFRICAN AMERICAN > 90 mL/min (90-120)
[2019-06-19 17:18] LABS: POTASSIUM - SERUM 2.7 mmol/L (3.5-5.1)
[2019-06-19 17:42] LABS: APPEARANCE CLEAR (CLEAR); BILIRUBIN NEGATIVE (NEGATIVE); COLOR YELLOW (YELLOW); GLUCOSE NEGATIVE (NEGATIVE); KETONE NEGATIVE (NEGATIVE); NITRITE NEGATIVE (NEGATIVE); PROTEIN NEGATIVE (NEGATIVE); UROBILINOGEN NORMAL (NORMAL)
[2019-06-19 17:44] LABS: BACTERIA MODERATE /hpf (NONE SEEN); EPITHELIAL CELLS 0-5 /hpf (0-5); MUCUS <1+ /lpf (NONE SEEN); RED CELLS - URINE 0-5 /hpf (0-5); WHITE CELLS - URINE 0-5 /hpf (0-5)
[2019-06-19 17:46] LABS: LYMPHOCYTES 31 % (15-50); NEUTROPHILS 69 % (40-80); PLATELET ESTIMATE NORMAL
[2019-06-19] MEDS ORDERED: CIPRO500 MG PO (21:23)
[2019-06-20 00:04] VITALS: BP 147/78
== END 2019-06-19 21:50 | disposition home or self-care (01) ==
LOC: D.ER 15:13
PROVIDERS: Family Medicine
DX: N39.0 Urinary tract infection, site not specified (principal)

== ENCOUNTER 2019-07-04 18:42 | Emergency (ER) | payer MEDICAID ==
[~2019-07-04] VITALS: Ht 157.5 cm; Wt 63.6 kg
[2019-07-04 19:00] VITALS: Ht 157.5 cm; Wt 63.6 kg
[2019-07-04 19:57] VITALS: BP 152/84
== END 2019-07-04 19:56 | disposition home or self-care (01) ==
LOC: D.ER 18:42
DX: S61.411A Laceration without foreign body of right hand, initial encounter (principal); W25.XXXA Contact with sharp glass, initial encounter; Y93.89 Activity, other specified; Y92.89 Other specified places as the place of occurrence of the external cause

== ENCOUNTER 2019-07-13 11:09 | Emergency (ER) | payer MEDICAID ==
[~2019-07-13] VITALS: Ht 157.5 cm; Wt 64.7 kg
[2019-07-13 11:39] VITALS: Ht 157.5 cm; Wt 64.7 kg
[2019-07-13 12:06] LABS: BASOPHILS 0.1 % (0-2); EOSINOPHILS 0.8 % (0-7); HEMATOCRIT 36.4 % (36.0-48.0); IMMATURE GRANULOCYTES 0.2 % (0-5); LYMPHOCYTES 16.4 % (15-50); MCH 25.9 pg (26.0-34.0); MCV 78.6 fL (80.0-100.0); MONOCYTES 9.2 % (2-11); NEUTROPHILS 73.3 % (40-80); PLATELET COUNT 290 10x3/uL (130-400); RBC 4.63 10x6/uL (4.00-5.40); RDW 15.9 % (11.5-14.5); WBC 8.9 10x3/uL (4.8-10.8)
[2019-07-13 12:18] LABS: ALBUMIN 3.4 g/dL (3.4-5.0); ALKALINE PHOSPHATASE 141 U/L (46-116); ALT (SGPT) 14 U/L (10-68); AMYLASE - SERUM 71 U/L (25-115); BILIRUBIN - TOTAL 0.13 mg/dL (0.2-1.3); CALC OSMOLALITY 275 mosm/kg (275-300); CALCIUM 9.3 mg/dL (8.5-10.1); CARBON DIOXIDE 23.9 mmol/L (21.0-32.0); CHLORIDE - SERUM 107 mmol/L (98-107); CREATININE - SERUM 0.7 mg/dL (0.6-1.3); GLUCOSE 101 mg/dL (74-106); LIPASE 134 U/L (73-393); POTASSIUM - SERUM 4.1 mmol/L (3.5-5.1); PROTEIN - SERUM 6.8 g/dL (6.4-8.2); SODIUM 139 mmol/L (136-145); UREA NITROGEN 7 mg/dL (7-18); eGFR NON AFRICAN AMERICAN > 90 mL/min (90-120)
[2019-07-13 15:18] LABS: APPEARANCE CLEAR (CLEAR); BILIRUBIN NEGATIVE (NEGATIVE); COLOR YELLOW (YELLOW); GLUCOSE NEGATIVE (NEGATIVE); KETONE NEGATIVE (NEGATIVE); NITRITE NEGATIVE (NEGATIVE); PROTEIN NEGATIVE (NEGATIVE); UROBILINOGEN NORMAL (NORMAL)
[2019-07-13] MEDS ORDERED: TYLENOL #4 W/CO1 TAB PO (15:52)
[2019-07-13 16:20] VITALS: BP 143/64
== END 2019-07-13 16:20 | disposition home or self-care (01) ==
LOC: D.ER 11:09
PROVIDERS: Family Medicine
DX: M32.9 Systemic lupus erythematosus, unspecified (principal); R10.9 Unspecified abdominal pain; R11.2 Nausea with vomiting, unspecified

== ENCOUNTER 2019-07-14 20:07 | Emergency (ER) | payer MEDICAID ==
[~2019-07-14] VITALS: Ht 157.5 cm; Wt 63.6 kg
[~2019-07-14 20:07] MED LIST changes: +TYLENOL #4 W/CO1 TAB PO
[2019-07-14 20:11] VITALS: BP 128/76; Ht 157.5 cm; Wt 63.6 kg
== END 2019-07-14 22:35 | disposition home or self-care (01) ==
LOC: D.ER 20:07
DX: R21 Rash and other nonspecific skin eruption (principal)

== ENCOUNTER 2019-07-18 15:21 | Emergency (ER) | payer MEDICAID ==
[~2019-07-18] VITALS: Ht 157.5 cm; Wt 64.1 kg
[2019-07-18 15:48] VITALS: Ht 157.5 cm; Wt 64.1 kg
[2019-07-18 16:16] LABS: APPEARANCE CLEAR (CLEAR); BILIRUBIN NEGATIVE (NEGATIVE); COLOR YELLOW (YELLOW); EPITHELIAL CELLS 0-5 /hpf (0-5); GLUCOSE NEGATIVE (NEGATIVE); KETONE NEGATIVE (NEGATIVE); NITRITE NEGATIVE (NEGATIVE); PROTEIN NEGATIVE (NEGATIVE); RED CELLS - URINE OCC /hpf (0-5); SPECIFIC GRAVITY 1.015 (1.005-1.020); UROBILINOGEN NORMAL (NORMAL); WHITE CELLS - URINE NSEEN /hpf (0-5)
[2019-07-18 16:32] LABS: BASOPHILS 0.1 % (0-2); EOSINOPHILS 0.3 % (0-7); HEMATOCRIT 35.1 % (36.0-48.0); HEMOGLOBIN 11.6 g/dL (12-16); IMMATURE GRANULOCYTES 0.1 % (0-5); MCH 26.1 pg (26.0-34.0); MCV 78.9 fL (80.0-100.0); MEAN PLATELET VOLUME 11.2 fL (7.4-10.4); MONOCYTES 7.4 % (2-11); NEUTROPHILS 76.1 % (40-80); PLATELET COUNT 273 10x3/uL (130-400); RBC 4.45 10x6/uL (4.00-5.40); RDW 15.8 % (11.5-14.5)
[2019-07-18 16:40] LABS: INR 1.05 (0.85-1.17); PROTIME 13.2 SECONDS (11.6-15.0)
[2019-07-18 16:48] LABS: ALBUMIN 3.3 g/dL (3.4-5.0); ALKALINE PHOSPHATASE 127 U/L (46-116); ALT (SGPT) 16 U/L (10-68); BILIRUBIN - TOTAL 0.15 mg/dL (0.2-1.3); CALC OSMOLALITY 280 mosm/kg (275-300); CALCIUM 8.7 mg/dL (8.5-10.1); CARBON DIOXIDE 22.3 mmol/L (21.0-32.0); CHLORIDE - SERUM 108 mmol/L (98-107); CREATININE - SERUM 0.6 mg/dL (0.6-1.3); GLUCOSE 94 mg/dL (74-106); POTASSIUM - SERUM 3.9 mmol/L (3.5-5.1); PROTEIN - SERUM 6.1 g/dL (6.4-8.2); SODIUM 142 mmol/L (136-145); UREA NITROGEN 8 mg/dL (7-18); eGFR NON AFRICAN AMERICAN > 90 mL/min (90-120)
[2019-07-18] MEDS ORDERED: LEVSIN/ANASP0.125 MG PO (18:49)
[2019-07-18 19:10] VITALS: BP 141/74
== END 2019-07-18 19:10 | disposition home or self-care (01) ==
LOC: D.ER 15:21
PROVIDERS: Family Medicine
DX: R11.2 Nausea with vomiting, unspecified (principal); R10.9 Unspecified abdominal pain

== ENCOUNTER 2019-07-22 13:11 | Emergency (ER) | payer MEDICAID ==
[~2019-07-22] VITALS: Ht 157.5 cm; Wt 63.6 kg
[~2019-07-22 13:11] MED LIST changes: +LEVSIN/ANASP0.125 MG PO
[2019-07-22 13:20] VITALS: Ht 157.5 cm; Wt 63.6 kg
[2019-07-22 14:01] LABS: BASOPHILS 0.2 % (0-2); EOSINOPHILS 0.3 % (0-7); HEMATOCRIT 36.4 % (36.0-48.0); HEMOGLOBIN 11.9 g/dL (12-16); IMMATURE GRANULOCYTES 0.2 % (0-5); MCH 25.9 pg (26.0-34.0); MCHC 32.7 g/dL (31.0-37.0); MCV 79.3 fL (80.0-100.0); MEAN PLATELET VOLUME 11.3 fL (7.4-10.4); MONOCYTES 10.1 % (2-11); NEUTROPHILS 76.2 % (40-80); PLATELET COUNT 282 10x3/uL (130-400); RBC 4.59 10x6/uL (4.00-5.40)
[2019-07-22 14:19] LABS: ALBUMIN 3.3 g/dL (3.4-5.0); ALKALINE PHOSPHATASE 127 U/L (46-116); ALT (SGPT) 14 U/L (10-68); AMYLASE - SERUM 68 U/L (25-115); BILIRUBIN - TOTAL 0.05 mg/dL (0.2-1.3); CALC OSMOLALITY 282 mosm/kg (275-300); CALCIUM 8.9 mg/dL (8.5-10.1); CARBON DIOXIDE 21.6 mmol/L (21.0-32.0); CHLORIDE - SERUM 112 mmol/L (98-107); CREATININE - SERUM 0.6 mg/dL (0.6-1.3); GLUCOSE 106 mg/dL (74-106); LIPASE 132 U/L (73-393); POTASSIUM - SERUM 3.7 mmol/L (3.5-5.1); PROTEIN - SERUM 6.4 g/dL (6.4-8.2); SODIUM 143 mmol/L (136-145); TROPONIN-I < 0.017 ng/mL (0.000-0.060); UREA NITROGEN 8 mg/dL (7-18); eGFR NON AFRICAN AMERICAN > 90 mL/min (90-120)
[2019-07-22 14:38] LABS: INR 1.01 (0.85-1.17); PROTIME 12.8 SECONDS (11.6-15.0)
[2019-07-22 15:31] LABS: APPEARANCE CLEAR (CLEAR); BILIRUBIN NEGATIVE (NEGATIVE); COLOR YELLOW (YELLOW); KETONE NEGATIVE (NEGATIVE); NITRITE NEGATIVE (NEGATIVE); PROTEIN NEGATIVE (NEGATIVE); SPECIFIC GRAVITY 1.015 (1.005-1.020); UROBILINOGEN NORMAL (NORMAL)
[2019-07-22 15:46] LABS: GLUCOSE 50 mg/dL (NEGATIVE); RED CELLS - URINE OCC /hpf (0-5)
[2019-07-22 15:47] LABS: BACTERIA FEW /hpf (NONE SEEN); EPITHELIAL CELLS 0-5 /hpf (0-5)
[2019-07-22] MEDS ORDERED: ZOFRAN ODT4 MG/UDTAB PO (17:08)
[2019-07-22] MEDS ORDERED: VALIUM 2 MG TAB2 MG PO (17:08)
[2019-07-22 18:09] VITALS: BP 134/85
== END 2019-07-22 17:40 | disposition home or self-care (01) ==
LOC: D.ER 13:11
PROVIDERS: Family Medicine
DX: K31.84 Gastroparesis (principal); R10.9 Unspecified abdominal pain; R11.2 Nausea with vomiting, unspecified

== ENCOUNTER 2019-07-25 17:51 | Emergency (ER) | payer MEDICAID ==
[~2019-07-25] VITALS: Ht 157.5 cm; Wt 63.6 kg
[~2019-07-25 17:51] MED LIST changes: +VALIUM 2 MG TAB2 MG PO
[2019-07-25 18:03] VITALS: Ht 157.5 cm; Wt 63.6 kg
[2019-07-25 18:18] LABS: BASOPHILS 0.3 % (0-2); EOSINOPHILS 0.7 % (0-7); HEMATOCRIT 36.7 % (36.0-48.0); IMMATURE GRANULOCYTES 0.3 % (0-5); LYMPHOCYTES 23.3 % (15-50); MCHC 32.7 g/dL (31.0-37.0); MCV 79.6 fL (80.0-100.0); MEAN PLATELET VOLUME 11.2 fL (7.4-10.4); MONOCYTES 10.3 % (2-11); NEUTROPHILS 65.1 % (40-80); PLATELET COUNT 276 10x3/uL (130-400); RBC 4.61 10x6/uL (4.00-5.40); RDW 15.9 % (11.5-14.5)
[2019-07-25 18:32] LABS: ALBUMIN 3.4 g/dL (3.4-5.0); ALKALINE PHOSPHATASE 124 U/L (46-116); ALT (SGPT) 14 U/L (10-68); AMYLASE - SERUM 72 U/L (25-115); BILIRUBIN - TOTAL 0.18 mg/dL (0.2-1.3); CALC OSMOLALITY 283 mosm/kg (275-300); CALCIUM 8.9 mg/dL (8.5-10.1); CARBON DIOXIDE 25.9 mmol/L (21.0-32.0); CHLORIDE - SERUM 109 mmol/L (98-107); CREATININE - SERUM 0.8 mg/dL (0.6-1.3); GLUCOSE 72 mg/dL (74-106); LIPASE 106 U/L (73-393); POTASSIUM - SERUM 3.1 mmol/L (3.5-5.1); PROTEIN - SERUM 6.8 g/dL (6.4-8.2); SODIUM 144 mmol/L (136-145); UREA NITROGEN 8 mg/dL (7-18); eGFR NON AFRICAN AMERICAN 83 mL/min (90-120)
[2019-07-25] MEDS ORDERED: TALWIN NX1 TAB PO (19:28)
[2019-07-25] MEDS ORDERED: PHENERGAN25 MG RC (19:28)
[2019-07-25] MEDS ORDERED: VALIUM 2 MG TAB2 MG PO (19:32)
[2019-07-25 19:45] LABS: APPEARANCE CLEAR (CLEAR); BILIRUBIN NEGATIVE (NEGATIVE); COLOR YELLOW (YELLOW); GLUCOSE NEGATIVE (NEGATIVE); KETONE NEGATIVE (NEGATIVE); NITRITE NEGATIVE (NEGATIVE); PROTEIN NEGATIVE (NEGATIVE); SPECIFIC GRAVITY 1.025 (1.005-1.020); UROBILINOGEN NORMAL (NORMAL)
[2019-07-25 20:25] VITALS: BP 146/71
== END 2019-07-25 20:25 | disposition home or self-care (01) ==
LOC: D.ER 17:51
PROVIDERS: Emergency Medicine
DX: K31.84 Gastroparesis (principal); Z76.5 Malingerer [conscious simulation]; K29.70 Gastritis, unspecified, without bleeding; R11.2 Nausea with vomiting, unspecified

== ENCOUNTER 2019-07-27 12:27 | Emergency (ER) | payer MEDICAID ==
[~2019-07-27 12:27] MED LIST changes: +TALWIN NX1 TAB PO
[2019-07-27 12:30] VITALS: BP 128/66; Ht 157.5 cm
[2019-07-27 13:20] LABS: BASOPHILS 0.1 % (0-2); EOSINOPHILS 0.3 % (0-7); HEMATOCRIT 34.3 % (36.0-48.0); HEMOGLOBIN 11.5 g/dL (12-16); IMMATURE GRANULOCYTES 0.2 % (0-5); LYMPHOCYTES 15.9 % (15-50); MCH 26.3 pg (26.0-34.0); MCHC 33.5 g/dL (31.0-37.0); MCV 78.3 fL (80.0-100.0); MEAN PLATELET VOLUME 11.5 fL (7.4-10.4); MONOCYTES 9.1 % (2-11); NEUTROPHILS 74.4 % (40-80); PLATELET COUNT 269 10x3/uL (130-400); RBC 4.38 10x6/uL (4.00-5.40); RDW 15.9 % (11.5-14.5); WBC 9.8 10x3/uL (4.8-10.8)
[2019-07-27 13:36] LABS: ALBUMIN 3.3 g/dL (3.4-5.0); ALKALINE PHOSPHATASE 113 U/L (46-116); ALT (SGPT) 14 U/L (10-68); BILIRUBIN - TOTAL 0.21 mg/dL (0.2-1.3); CALC OSMOLALITY 281 mosm/kg (275-300); CALCIUM 8.7 mg/dL (8.5-10.1); CHLORIDE - SERUM 109 mmol/L (98-107); CREATININE - SERUM 0.7 mg/dL (0.6-1.3); GLUCOSE 114 mg/dL (74-106); POTASSIUM - SERUM 3.3 mmol/L (3.5-5.1); PROTEIN - SERUM 6.6 g/dL (6.4-8.2); SODIUM 142 mmol/L (136-145); UREA NITROGEN 8 mg/dL (7-18); eGFR NON AFRICAN AMERICAN > 90 mL/min (90-120)
[2019-07-27 13:49] LABS: CKMB 0.3 U/L (0.0-3.6); CREATINE KINASE 81 UL (21-215); PRO BNP 172 pg/mL (0-125)
[2019-07-27 13:51] LABS: TROPONIN-I < 0.017 ng/mL (0.000-0.060)
[2019-07-27 15:52] LABS: AMYLASE - SERUM 61 U/L (25-115); LIPASE 101 U/L (73-393)
== END 2019-07-27 18:38 | disposition home or self-care (01) ==
LOC: D.ER 12:27
PROVIDERS: Emergency Medicine
DX: R10.9 Unspecified abdominal pain (principal)

== ENCOUNTER 2019-08-02 21:17 | Emergency (ER) | payer MEDICAID ==
[~2019-08-02] VITALS: Ht 157.5 cm; Wt 63.6 kg
[2019-08-02 21:23] VITALS: Ht 157.5 cm; Wt 63.6 kg
[2019-08-02 21:51] LABS: BASOPHILS 0.2 % (0-2); EOSINOPHILS 1.3 % (0-7); HEMATOCRIT 35.8 % (36.0-48.0); HEMOGLOBIN 12.1 g/dL (12-16); IMMATURE GRANULOCYTES 0.3 % (0-5); LYMPHOCYTES 23.6 % (15-50); MCH 26.5 pg (26.0-34.0); MCHC 33.8 g/dL (31.0-37.0); MCV 78.5 fL (80.0-100.0); MEAN PLATELET VOLUME 11.4 fL (7.4-10.4); MONOCYTES 10.9 % (2-11); NEUTROPHILS 63.7 % (40-80); PLATELET COUNT 275 10x3/uL (130-400); RBC 4.56 10x6/uL (4.00-5.40); RDW 15.8 % (11.5-14.5); WBC 10.2 10x3/uL (4.8-10.8)
[2019-08-02 21:51] LABS: APPEARANCE CLEAR (CLEAR); BILIRUBIN NEGATIVE (NEGATIVE); COLOR YELLOW (YELLOW); GLUCOSE NEGATIVE (NEGATIVE); KETONE NEGATIVE (NEGATIVE); NITRITE NEGATIVE (NEGATIVE); PROTEIN NEGATIVE (NEGATIVE); SPECIFIC GRAVITY 1.015 (1.005-1.020); UROBILINOGEN NORMAL (NORMAL)
[2019-08-02 21:53] LABS: EPITHELIAL CELLS 0-5 /hpf (0-5); WHITE CELLS - URINE 0-5 /hpf (0-5)
[2019-08-02 21:54] LABS: BACTERIA FEW /hpf (NONE SEEN); MUCUS >1+ /lpf (NONE SEEN)
[2019-08-02 21:55] LABS: HCG URINE NEGATIVE (NEGATIVE)
[2019-08-02 22:07] LABS: ALBUMIN 3.4 g/dL (3.4-5.0); ALKALINE PHOSPHATASE 116 U/L (46-116); ALT (SGPT) 15 U/L (10-68); AMYLASE - SERUM 71 U/L (25-115); BILIRUBIN - TOTAL 0.29 mg/dL (0.2-1.3); CALC OSMOLALITY 282 mosm/kg (275-300); CARBON DIOXIDE 25.4 mmol/L (21.0-32.0); CHLORIDE - SERUM 107 mmol/L (98-107); CREATININE - SERUM 0.8 mg/dL (0.6-1.3); GLUCOSE 89 mg/dL (74-106); LIPASE 164 U/L (73-393); POTASSIUM - SERUM 3.4 mmol/L (3.5-5.1); PROTEIN - SERUM 6.7 g/dL (6.4-8.2); SODIUM 143 mmol/L (136-145); UREA NITROGEN 9 mg/dL (7-18); eGFR NON AFRICAN AMERICAN 83 mL/min (90-120)
[2019-08-02] MEDS ORDERED: ULTRAM50 MG PO (22:12)
[2019-08-02] MEDS ORDERED: CIPRO250 MG PO (22:12)
[2019-08-02 22:47] VITALS: BP 115/89
== END 2019-08-02 22:47 | disposition home or self-care (01) ==
LOC: D.ER 21:17
PROVIDERS: Emergency Medicine
DX: R30.0 Dysuria (principal)

== ENCOUNTER 2019-08-05 16:53 | Emergency (ER) | payer MEDICAID ==
[~2019-08-05] VITALS: Ht 157.5 cm; Wt 63.6 kg
[~2019-08-05 16:53] MED LIST changes: +CIPRO250 MG PO; +ULTRAM50 MG PO
[2019-08-05 17:30] VITALS: BP 122/84; Ht 157.5 cm; Wt 63.6 kg
[2019-08-05 18:01] LABS: APPEARANCE CLEAR (CLEAR); BILIRUBIN NEGATIVE (NEGATIVE); COLOR YELLOW (YELLOW); GLUCOSE NEGATIVE (NEGATIVE); KETONE NEGATIVE (NEGATIVE); NITRITE NEGATIVE (NEGATIVE); PROTEIN NEGATIVE (NEGATIVE); UROBILINOGEN NORMAL (NORMAL)
[2019-08-05 18:34] LABS: BASOPHILS 0.2 % (0-2); EOSINOPHILS 0.5 % (0-7); HEMATOCRIT 36.4 % (36.0-48.0); IMMATURE GRANULOCYTES 0.4 % (0-5); LYMPHOCYTES 16.6 % (15-50); MCH 26.2 pg (26.0-34.0); MCV 79.5 fL (80.0-100.0); MEAN PLATELET VOLUME 11.5 fL (7.4-10.4); NEUTROPHILS 75.3 % (40-80); PLATELET COUNT 261 10x3/uL (130-400); RBC 4.58 10x6/uL (4.00-5.40); RDW 15.7 % (11.5-14.5); WBC 11.1 10x3/uL (4.8-10.8)
[2019-08-05 18:52] LABS: ALBUMIN 3.6 g/dL (3.4-5.0); ALKALINE PHOSPHATASE 127 U/L (46-116); ALT (SGPT) 17 U/L (10-68); BILIRUBIN - TOTAL 0.23 mg/dL (0.2-1.3); CALC OSMOLALITY 279 mosm/kg (275-300); CALCIUM 8.8 mg/dL (8.5-10.1); CARBON DIOXIDE 25.1 mmol/L (21.0-32.0); CHLORIDE - SERUM 106 mmol/L (98-107); CREATININE - SERUM 0.7 mg/dL (0.6-1.3); GLUCOSE 89 mg/dL (74-106); POTASSIUM - SERUM 4.1 mmol/L (3.5-5.1); PROTEIN - SERUM 6.7 g/dL (6.4-8.2); SODIUM 142 mmol/L (136-145); UREA NITROGEN 6 mg/dL (7-18); eGFR NON AFRICAN AMERICAN > 90 mL/min (90-120)
[2019-08-06] MEDS ORDERED: ZOFRAN ODT4 MG/UDTAB PO (17:44)
== END 2019-08-05 19:07 | disposition home or self-care (01) ==
LOC: D.ER 16:53
PROVIDERS: Family Medicine
DX: R10.2 Pelvic and perineal pain (principal)

== ENCOUNTER 2019-08-06 15:15 | Emergency (ER) | payer MEDICAID ==
[2019-08-05 17:30] VITALS: Ht 157.5 cm; Wt 63.6 kg
[~2019-08-06] VITALS: Ht 157.5 cm; Wt 63.6 kg
[2019-08-06 16:33] LABS: BASOPHILS 0.2 % (0-2); EOSINOPHILS 0.6 % (0-7); HEMATOCRIT 34.7 % (36.0-48.0); HEMOGLOBIN 11.3 g/dL (12-16); IMMATURE GRANULOCYTES 0.4 % (0-5); LYMPHOCYTES 20.7 % (15-50); MCH 26.1 pg (26.0-34.0); MCHC 32.6 g/dL (31.0-37.0); MCV 80.1 fL (80.0-100.0); MEAN PLATELET VOLUME 11.7 fL (7.4-10.4); MONOCYTES 7.1 % (2-11); PLATELET COUNT 263 10x3/uL (130-400); RBC 4.33 10x6/uL (4.00-5.40); RDW 15.9 % (11.5-14.5); WBC 11.3 10x3/uL (4.8-10.8)
[2019-08-06 16:55] LABS: ALBUMIN 3.1 g/dL (3.4-5.0); ALKALINE PHOSPHATASE 115 U/L (46-116); ALT (SGPT) 19 U/L (10-68); AMYLASE - SERUM 69 U/L (25-115); BILIRUBIN - TOTAL 0.09 mg/dL (0.2-1.3); CALCIUM 8.5 mg/dL (8.5-10.1); CARBON DIOXIDE 23.4 mmol/L (21.0-32.0); CHLORIDE - SERUM 109 mmol/L (98-107); CREATININE - SERUM 0.7 mg/dL (0.6-1.3); GLUCOSE 90 mg/dL (74-106); LIPASE 117 U/L (73-393); PROTEIN - SERUM 5.9 g/dL (6.4-8.2); SODIUM 143 mmol/L (136-145); eGFR NON AFRICAN AMERICAN > 90 mL/min (90-120)
[2019-08-06 16:57] LABS: CALC OSMOLALITY 283 mosm/kg (275-300); UREA NITROGEN 9 mg/dL (7-18)
[2019-08-06] MEDS ORDERED: ZOFRAN ODT4 MG/UDTAB PO (17:44)
[2019-08-06 18:11] LABS: APPEARANCE CLEAR (CLEAR); BILIRUBIN NEGATIVE (NEGATIVE); COLOR YELLOW (YELLOW); GLUCOSE NEGATIVE (NEGATIVE); KETONE NEGATIVE (NEGATIVE); NITRITE NEGATIVE (NEGATIVE); PROTEIN NEGATIVE (NEGATIVE); UROBILINOGEN NORMAL (NORMAL)
[2019-08-06 18:12] LABS: EPITHELIAL CELLS 0-5 /hpf (0-5); RED CELLS - URINE 0-5 /hpf (0-5); WHITE CELLS - URINE 0-5 /hpf (0-5)
[2019-08-06 18:13] LABS: BACTERIA FEW /hpf (NONE SEEN)
[2019-08-06 18:23] VITALS: BP 138/53
== END 2019-08-06 18:30 | disposition home or self-care (01) ==
LOC: D.ER 15:15
PROVIDERS: Family Medicine
DX: R10.9 Unspecified abdominal pain (principal); R11.2 Nausea with vomiting, unspecified

== ENCOUNTER 2019-08-09 14:58 | Emergency (ER) | payer MEDICAID ==
[~2019-08-09] VITALS: Ht 157.5 cm; Wt 63.6 kg
[2019-08-09 15:03] VITALS: Ht 157.5 cm; Wt 63.6 kg
[2019-08-09 17:17] VITALS: BP 136/82
[2019-08-10] MEDS ORDERED: ACETAMINOPHEN500 M1 PO (22:25)
[2019-08-10] MEDS ORDERED: CYCLOBENZAPRINE10 MG PO (22:25)
== END 2019-08-09 17:18 | disposition home or self-care (01) ==
LOC: D.ER 14:58
DX: M32.9 Systemic lupus erythematosus, unspecified (principal); M62.838 Other muscle spasm

== ENCOUNTER 2019-08-10 18:40 | Emergency (ER) | payer MEDICAID ==
[~2019-08-10] VITALS: Ht 157.5 cm; Wt 61.4 kg
[2019-08-10 18:47] VITALS: Ht 157.5 cm; Wt 61.4 kg
[2019-08-10 20:45] LABS: BASOPHILS 0.1 % (0-2); EOSINOPHILS 0.5 % (0-7); HEMATOCRIT 37.7 % (36.0-48.0); HEMOGLOBIN 12.6 g/dL (12-16); IMMATURE GRANULOCYTES 0.1 % (0-5); LYMPHOCYTES 22.7 % (15-50); MCH 26.1 pg (26.0-34.0); MCHC 33.4 g/dL (31.0-37.0); MCV 78.2 fL (80.0-100.0); MEAN PLATELET VOLUME 11.5 fL (7.4-10.4); MONOCYTES 8.6 % (2-11); PLATELET COUNT 271 10x3/uL (130-400); RBC 4.82 10x6/uL (4.00-5.40); RDW 15.3 % (11.5-14.5); WBC 10.1 10x3/uL (4.8-10.8)
[2019-08-10 20:54] LABS: APPEARANCE CLEAR (CLEAR); BILIRUBIN NEGATIVE (NEGATIVE); COLOR YELLOW (YELLOW); GLUCOSE NEGATIVE (NEGATIVE); KETONE NEGATIVE (NEGATIVE); NITRITE NEGATIVE (NEGATIVE); PROTEIN NEGATIVE (NEGATIVE); SPECIFIC GRAVITY 1.015 (1.005-1.020); UROBILINOGEN NORMAL (NORMAL)
[2019-08-10 21:00] LABS: HCG URINE NEGATIVE (NEGATIVE)
[2019-08-10 21:09] LABS: ALBUMIN 3.6 g/dL (3.4-5.0); ALKALINE PHOSPHATASE 147 U/L (46-116); ALT (SGPT) 21 U/L (10-68); BILIRUBIN - TOTAL 0.25 mg/dL (0.2-1.3); CALC OSMOLALITY 280 mosm/kg (275-300); CALCIUM 9.3 mg/dL (8.5-10.1); CARBON DIOXIDE 28.3 mmol/L (21.0-32.0); CHLORIDE - SERUM 105 mmol/L (98-107); CREATININE - SERUM 0.7 mg/dL (0.6-1.3); GLUCOSE 84 mg/dL (74-106); POTASSIUM - SERUM 3.9 mmol/L (3.5-5.1); PROTEIN - SERUM 6.9 g/dL (6.4-8.2); SODIUM 142 mmol/L (136-145); UREA NITROGEN 11 mg/dL (7-18); eGFR NON AFRICAN AMERICAN > 90 mL/min (90-120)
[2019-08-10 21:10] LABS: AMYLASE - SERUM 77 U/L (25-115); LIPASE 96 U/L (73-393); TROPONIN-I < 0.017 ng/mL (0.000-0.060)
[2019-08-10] MEDS ORDERED: CYCLOBENZAPRINE10 MG PO (22:25)
[2019-08-10] MEDS ORDERED: ACETAMINOPHEN500 M1 PO (22:25)
[2019-08-10 22:40] VITALS: BP 134/83
== END 2019-08-10 22:40 | disposition home or self-care (01) ==
LOC: D.ER 18:40
PROVIDERS: Family Medicine
DX: M54.2 Cervicalgia (principal); R11.0 Nausea; M79.18 Myalgia, other site; M32.9 Systemic lupus erythematosus, unspecified

== ENCOUNTER → 2019-08-10 18:55 | Outpatient (CLI) | payer MEDICAID ==
[2019-08-10 18:47] VITALS: BMI 24.7
[~2019-08-10 18:55] MED LIST changes: +ACETAMINOPHEN500 M1 PO
== END | disposition home or self-care (01) ==
LOC: D.LABREF 18:55
PROVIDERS: ATTEND Urology
DX: R31.9 Hematuria, unspecified (principal)

== ENCOUNTER 2019-08-16 20:59 | Emergency (ER) | payer MEDICAID ==
[~2019-08-16] VITALS: Ht 157.5 cm; Wt 59.0 kg
[2019-08-16 21:08] VITALS: Ht 157.5 cm; Wt 59.0 kg
[2019-08-16 22:07] LABS: HEMATOCRIT 39.1 % (36.0-48.0); HEMOGLOBIN 12.8 g/dL (12-16); LYMPHOCYTES 24.9 % (15-50); MCH 26.3 pg (26.0-34.0); MCHC 32.7 g/dL (31.0-37.0); MCV 80.5 fL (80.0-100.0); MEAN PLATELET VOLUME 11.4 fL (7.4-10.4); NEUTROPHILS 65.9 % (40-80); PLATELET COUNT 259 10x3/uL (130-400); RBC 4.86 10x6/uL (4.00-5.40); RDW 14.9 % (11.5-14.5); WBC 8.9 10x3/uL (4.8-10.8)
[2019-08-16 22:19] LABS: ALBUMIN 3.9 g/dL (3.4-5.0); ALKALINE PHOSPHATASE 150 U/L (46-116); ALT (SGPT) 19 U/L (10-68); BILIRUBIN - TOTAL 0.41 mg/dL (0.2-1.3); CALC OSMOLALITY 274 mosm/kg (275-300); CALCIUM 8.8 mg/dL (8.5-10.1); CARBON DIOXIDE 26.9 mmol/L (21.0-32.0); CHLORIDE - SERUM 105 mmol/L (98-107); CREATININE - SERUM 0.7 mg/dL (0.6-1.3); GLUCOSE 89 mg/dL (74-106); LIPASE 114 U/L (73-393); POTASSIUM - SERUM 3.4 mmol/L (3.5-5.1); PROTEIN - SERUM 7.5 g/dL (6.4-8.2); SODIUM 139 mmol/L (136-145); UREA NITROGEN 7 mg/dL (7-18); eGFR NON AFRICAN AMERICAN > 90 mL/min (90-120)
[2019-08-16 22:46] VITALS: BP 132/63
== END 2019-08-16 22:47 | disposition home or self-care (01) ==
LOC: D.ER 20:59
PROVIDERS: Family Medicine
DX: R11.2 Nausea with vomiting, unspecified (principal); K31.84 Gastroparesis

== ENCOUNTER 2019-08-30 20:08 | Emergency (ER) | payer MEDICAID ==
[~2019-08-30] VITALS: Ht 157.5 cm; Wt 56.8 kg
[2019-08-30 20:12] VITALS: Ht 157.5 cm; Wt 56.8 kg
[2019-08-30 20:54] LABS: BASOPHILS 0.1 % (0-2); EOSINOPHILS 0.5 % (0-7); HEMATOCRIT 35.7 % (36.0-48.0); HEMOGLOBIN 11.7 g/dL (12-16); IMMATURE GRANULOCYTES 0.2 % (0-5); LYMPHOCYTES 17.4 % (15-50); MCH 26.7 pg (26.0-34.0); MCHC 32.8 g/dL (31.0-37.0); MCV 81.5 fL (80.0-100.0); MEAN PLATELET VOLUME 10.9 fL (7.4-10.4); MONOCYTES 12.7 % (2-11); NEUTROPHILS 69.1 % (40-80); PLATELET COUNT 267 10x3/uL (130-400); RBC 4.38 10x6/uL (4.00-5.40); WBC 9.6 10x3/uL (4.8-10.8)
[2019-08-30 21:11] LABS: HCG SERUM NEGATIVE (NEGATIVE)
[2019-08-30 21:21] LABS: ALKALINE PHOSPHATASE 124 U/L (46-116); ALT (SGPT) 14 U/L (10-68); AMYLASE - SERUM 54 U/L (25-115); BILIRUBIN - TOTAL 0.23 mg/dL (0.2-1.3); CALC OSMOLALITY 276 mosm/kg (275-300); CALCIUM 8.6 mg/dL (8.5-10.1); CARBON DIOXIDE 28.8 mmol/L (21.0-32.0); CHLORIDE - SERUM 105 mmol/L (98-107); CREATININE - SERUM 0.7 mg/dL (0.6-1.3); GLUCOSE 97 mg/dL (74-106); LIPASE 91 U/L (73-393); POTASSIUM - SERUM 3.5 mmol/L (3.5-5.1); PROTEIN - SERUM 6.3 g/dL (6.4-8.2); SODIUM 140 mmol/L (136-145); UREA NITROGEN 8 mg/dL (7-18); eGFR NON AFRICAN AMERICAN > 90 mL/min (90-120)
[2019-08-30 22:19] LABS: APPEARANCE CLEAR (CLEAR); COLOR YELLOW (YELLOW)
[2019-08-30 22:20] LABS: BILIRUBIN NEGATIVE (NEGATIVE); GLUCOSE NEGATIVE (NEGATIVE); KETONE NEGATIVE (NEGATIVE); NITRITE NEGATIVE (NEGATIVE); PROTEIN NEGATIVE (NEGATIVE); SPECIFIC GRAVITY 1.015 (1.005-1.020); UROBILINOGEN NORMAL (NORMAL)
[2019-08-30 22:21] LABS: EPITHELIAL CELLS 0-5 /hpf (0-5); RED CELLS - URINE 0-5 /hpf (0-5); WHITE CELLS - URINE 0-5 /hpf (NEGATIVE)
[2019-08-30 22:22] LABS: AMORPHOUS SEDIMENT <1+ /lpf (NONE SEEN); BACTERIA FEW /hpf (NEGATIVE)
[2019-08-30 23:37] VITALS: BP 119/74
[2019-10-13] MEDS ORDERED: ULTRAM50 MG PO (08:26)
[2019-10-13] MEDS ORDERED: FOLIC ACID1 MG PO (08:27)
[2019-10-13] MEDS ORDERED: KLONOPIN1 MG PO (08:43)
== END 2019-08-30 23:38 | disposition home or self-care (01) ==
LOC: D.ER 20:08
PROVIDERS: Family Medicine
DX: G89.18 Other acute postprocedural pain (principal); K31.84 Gastroparesis

== ENCOUNTER 2019-09-05 15:01 | Emergency (ER) | payer MEDICAID ==
[~2019-09-05] VITALS: Ht 157.5 cm; Wt 65.9 kg
[2019-09-05 15:37] VITALS: BP 109/78; Ht 157.5 cm; Wt 65.9 kg
[2019-09-05 16:55] LABS: BASOPHILS 0.1 % (0-2); EOSINOPHILS 0.5 % (0-7); HEMATOCRIT 39.3 % (36.0-48.0); HEMOGLOBIN 12.7 g/dL (12-16); IMMATURE GRANULOCYTES 0.3 % (0-5); LYMPHOCYTES 15.9 % (15-50); MCH 26.6 pg (26.0-34.0); MCHC 32.3 g/dL (31.0-37.0); MCV 82.4 fL (80.0-100.0); MEAN PLATELET VOLUME 11.8 fL (7.4-10.4); NEUTROPHILS 76.2 % (40-80); PLATELET COUNT 343 10x3/uL (130-400); RBC 4.77 10x6/uL (4.00-5.40); RDW 14.8 % (11.5-14.5); WBC 13.9 10x3/uL (4.8-10.8)
[2019-09-05 17:04] LABS: APTT 21.5 SECONDS (22.8-39.4); INR 1.03 (0.85-1.17)
[2019-09-05 17:15] LABS: ALBUMIN 3.3 g/dL (3.4-5.0); ALKALINE PHOSPHATASE 147 U/L (46-116); ALT (SGPT) 13 U/L (10-68); CALC OSMOLALITY 275 mosm/kg (275-300); CALCIUM 9.1 mg/dL (8.5-10.1); CARBON DIOXIDE 25.7 mmol/L (21.0-32.0); CHLORIDE - SERUM 104 mmol/L (98-107); CREATININE - SERUM 0.6 mg/dL (0.6-1.3); GLUCOSE 89 mg/dL (74-106); POTASSIUM - SERUM 3.7 mmol/L (3.5-5.1); PROTEIN - SERUM 7.5 g/dL (6.4-8.2); SODIUM 140 mmol/L (136-145); UREA NITROGEN 6 mg/dL (7-18); eGFR NON AFRICAN AMERICAN > 90 mL/min (90-120)
[2019-10-13] MEDS ORDERED: ULTRAM50 MG PO (08:26)
[2019-10-13] MEDS ORDERED: FOLIC ACID1 MG PO (08:27)
[2019-10-13] MEDS ORDERED: KLONOPIN1 MG PO (08:43)
== END 2019-09-05 23:00 | disposition home or self-care (01) ==
LOC: D.ER 15:01
PROVIDERS: Family Medicine
DX: R10.9 Unspecified abdominal pain (principal); F41.9 Anxiety disorder, unspecified; K92.2 Gastrointestinal hemorrhage, unspecified

== ENCOUNTER 2019-10-07 15:12 | Emergency (ER) | payer MEDICAID ==
[~2019-10-07] VITALS: Ht 157.5 cm; Wt 59.1 kg
[2019-10-07 15:24] VITALS: Ht 157.5 cm; Wt 59.1 kg
[2019-10-07 19:03] VITALS: BP 125/74
[2019-10-13] MEDS ORDERED: ULTRAM50 MG PO (08:26)
[2019-10-13] MEDS ORDERED: FOLIC ACID1 MG PO (08:27)
[2019-10-13] MEDS ORDERED: KLONOPIN1 MG PO (08:43)
== END 2019-10-07 19:03 | disposition home or self-care (01) ==
LOC: D.ER 15:12
DX: R51 Headache (principal); M79.601 Pain in right arm

== ENCOUNTER 2019-12-19 21:10 | Emergency (ER) | payer MEDICAID ==
[~2019-12-19] VITALS: Ht 157.5 cm; Wt 61.4 kg
[~2019-12-19 21:10] MED LIST changes: +FOLIC ACID1 MG PO; +KLONOPIN1 MG PO
[2019-12-19 21:36] VITALS: Ht 157.5 cm; Wt 61.4 kg
[2019-12-19] MEDS ORDERED: PERCOCET 7.5/321 TAB PO (21:40)
[2019-12-19 22:07] LABS: BASOPHILS 0.1 % (0-2); EOSINOPHILS 3.5 % (0-7); HEMATOCRIT 34.3 % (36.0-48.0); HEMOGLOBIN 11.4 g/dL (12-16); IMMATURE GRANULOCYTES 0.6 % (0-5); LYMPHOCYTES 22.2 % (15-50); MCH 26.4 pg (26.0-34.0); MCHC 33.2 g/dL (31.0-37.0); MCV 79.4 fL (80.0-100.0); MEAN PLATELET VOLUME 10.9 fL (7.4-10.4); NEUTROPHILS 62.6 % (40-80); PLATELET COUNT 349 10x3/uL (130-400); RBC 4.32 10x6/uL (4.00-5.40); RDW 14.8 % (11.5-14.5); WBC 9.6 10x3/uL (4.8-10.8)
[2019-12-19 22:10] LABS: CALC OSMOLALITY 286 mosm/kg (275-300); CALCIUM 8.4 mg/dL (8.5-10.1); CARBON DIOXIDE 28.5 mmol/L (21.0-32.0); CHLORIDE - SERUM 108 mmol/L (98-107); CREATININE - SERUM 0.7 mg/dL (0.6-1.3); GLUCOSE 108 mg/dL (74-106); POTASSIUM - SERUM 3.1 mmol/L (3.5-5.1); SODIUM 144 mmol/L (136-145); UREA NITROGEN 11 mg/dL (7-18); eGFR NON AFRICAN AMERICAN > 90 mL/min (90-120)
[2019-12-19 22:16] LABS: ALBUMIN 2.9 g/dL (3.4-5.0); ALKALINE PHOSPHATASE 115 U/L (46-116); ALT (SGPT) 20 U/L (10-68); BILIRUBIN - TOTAL 0.21 mg/dL (0.2-1.3); PROTEIN - SERUM 6.4 g/dL (6.4-8.2)
[2019-12-19] MEDS ORDERED: DULCOLAX10 MG/SUPP RC (22:26)
[2019-12-19 23:03] VITALS: BP 148/77
== END 2019-12-19 23:03 | disposition home or self-care (01) ==
LOC: D.ER 21:10
PROVIDERS: Family Medicine
DX: K59.00 Constipation, unspecified (principal); R11.2 Nausea with vomiting, unspecified; Z90.710 Acquired absence of both cervix and uterus; E78.5 Hyperlipidemia, unspecified

== ENCOUNTER 2020-01-01 17:02 | Emergency (ER) | payer MEDICAID ==
[~2020-01-01] VITALS: Ht 157.5 cm; Wt 58.2 kg
[~2020-01-01 17:02] MED LIST changes: +DULCOLAX10 MG/SUPP RC; +PERCOCET 7.5/321 TAB PO
[2020-01-01 17:21] VITALS: Ht 157.5 cm; Wt 58.2 kg
[2020-01-01 18:29] LABS: BASOPHILS 0.2 % (0-2); EOSINOPHILS 1.9 % (0-7); HEMATOCRIT 41.1 % (36.0-48.0); HEMOGLOBIN 13.4 g/dL (12-16); IMMATURE GRANULOCYTES 0.2 % (0-5); LYMPHOCYTES 22.3 % (15-50); MCH 26.2 pg (26.0-34.0); MCHC 32.6 g/dL (31.0-37.0); MCV 80.3 fL (80.0-100.0); MEAN PLATELET VOLUME 11.8 fL (7.4-10.4); MONOCYTES 12.3 % (2-11); NEUTROPHILS 63.1 % (40-80); PLATELET COUNT 306 10x3/uL (130-400); RBC 5.12 10x6/uL (4.00-5.40); RDW 15.2 % (11.5-14.5); WBC 8.6 10x3/uL (4.8-10.8)
[2020-01-01 18:47] LABS: CALC OSMOLALITY 279 mosm/kg (275-300); CALCIUM 8.8 mg/dL (8.5-10.1); CHLORIDE - SERUM 104 mmol/L (98-107); CREATININE - SERUM 0.6 mg/dL (0.6-1.3); GLUCOSE 89 mg/dL (74-106); POTASSIUM - SERUM 4.3 mmol/L (3.5-5.1); SODIUM 141 mmol/L (136-145); UREA NITROGEN 13 mg/dL (7-18); eGFR NON AFRICAN AMERICAN > 90 mL/min (90-120)
[2020-01-01 18:56] LABS: ALBUMIN 3.5 g/dL (3.4-5.0); ALKALINE PHOSPHATASE 128 U/L (30-120); ALT (SGPT) 22 U/L (10-68); PROTEIN - SERUM 7.3 g/dL (6.4-8.2)
[2020-01-01 21:30] VITALS: BP 119/77
== END 2020-01-01 21:31 | disposition home or self-care (01) ==
LOC: D.ER 17:02
PROVIDERS: Family Medicine
DX: A08.4 Viral intestinal infection, unspecified (principal); E78.5 Hyperlipidemia, unspecified; F17.210 Nicotine dependence, cigarettes, uncomplicated

== ENCOUNTER 2020-03-03 11:59 | Emergency (ER) | payer MEDICAID ==
[~2020-03-03] VITALS: Ht 157.5 cm; Wt 59.1 kg
[2020-03-03 12:09] VITALS: Ht 157.5 cm; Wt 59.1 kg
[2020-03-03 15:03] VITALS: BP 151/76
[2020-03-03] MEDS ORDERED: MIRALAX17 GM PO (15:18)
== END 2020-03-03 15:34 | disposition home or self-care (01) ==
LOC: D.ER 11:59
DX: R10.9 Unspecified abdominal pain (principal); K59.00 Constipation, unspecified; Z76.5 Malingerer [conscious simulation]; E78.5 Hyperlipidemia, unspecified; Z95.0 Presence of cardiac pacemaker

== ENCOUNTER 2020-06-05 21:28 | Emergency (ER) | payer MEDICAID ==
[~2020-06-05] VITALS: Ht 157.5 cm; Wt 62.7 kg
[~2020-06-05 21:28] MED LIST changes: +MIRALAX17 GM PO
[2020-06-05 21:49] VITALS: Ht 157.5 cm; Wt 62.7 kg
[2020-06-05] MEDS ORDERED: NORVASC10 MG PO (21:53)
[2020-06-05] MEDS ORDERED: REQUIP3 MG PO (21:53)
[2020-06-05 22:28] LABS: BASOPHILS 0.4 % (0-2); EOSINOPHILS 1.8 % (0-7); HEMATOCRIT 42.2 % (36.0-48.0); HEMOGLOBIN 13.7 g/dL (12-16); IMMATURE GRANULOCYTES 0.2 % (0-5); LYMPHOCYTES 27.1 % (15-50); MCH 28.4 pg (26.0-34.0); MCHC 32.5 g/dL (31.0-37.0); MCV 87.4 fL (80.0-100.0); MONOCYTES 9.7 % (2-11); NEUTROPHILS 60.8 % (40-80); PLATELET COUNT 284 10x3/uL (130-400); RBC 4.83 10x6/uL (4.00-5.40); RDW 14.5 % (11.5-14.5); WBC 10.7 10x3/uL (4.8-10.8)
[2020-06-05 22:40] LABS: CALC OSMOLALITY 266 mosm/kg (275-300); CALCIUM 8.5 mg/dL (8.5-10.1); CARBON DIOXIDE 24.3 mmol/L (21.0-32.0); CHLORIDE - SERUM 103 mmol/L (98-107); CREATININE - SERUM 0.7 mg/dL (0.6-1.3); GLUCOSE 83 mg/dL (74-106); POTASSIUM - SERUM 3.9 mmol/L (3.5-5.1); SODIUM 134 mmol/L (136-145); UREA NITROGEN 13 mg/dL (7-18); eGFR NON AFRICAN AMERICAN > 90 mL/min (90-120)
[2020-06-05 22:50] LABS: ALBUMIN 3.4 g/dL (3.4-5.0); ALKALINE PHOSPHATASE 138 U/L (30-120); ALT (SGPT) 19 U/L (10-68); AMYLASE - SERUM 81 U/L (25-115); LIPASE 89 U/L (73-393); PROTEIN - SERUM 6.9 g/dL (6.4-8.2)
[2020-06-05 22:53] LABS: TROPONIN-I < 0.017 ng/mL (0.000-0.060)
[2020-06-05 23:40] VITALS: BP 132/67
== END 2020-06-05 23:40 | disposition home or self-care (01) ==
LOC: D.ER 21:28
PROVIDERS: Family Medicine
DX: R10.9 Unspecified abdominal pain (principal); K31.84 Gastroparesis; Z96.82 Presence of neurostimulator; M32.9 Systemic lupus erythematosus, unspecified; E78.5 Hyperlipidemia, unspecified

== ENCOUNTER 2020-06-10 21:54 | Emergency (ER) | payer MEDICAID ==
[~2020-06-10] VITALS: Ht 157.5 cm; Wt 62.7 kg
[~2020-06-10 21:54] MED LIST changes: +NORVASC10 MG PO; +REQUIP3 MG PO
[2020-06-10 22:09] VITALS: Ht 157.5 cm; Wt 62.7 kg
[2020-06-10] MEDS ORDERED: AMBIEN10 MG PO (22:16)
[2020-06-10 22:42] LABS: BASOPHILS 0.4 % (0-2); EOSINOPHILS 2.4 % (0-7); HEMATOCRIT 40.8 % (36.0-48.0); HEMOGLOBIN 13.5 g/dL (12-16); IMMATURE GRANULOCYTES 0.4 % (0-5); LYMPHOCYTES 29.2 % (15-50); MCH 28.8 pg (26.0-34.0); MCHC 33.1 g/dL (31.0-37.0); MEAN PLATELET VOLUME 11.2 fL (7.4-10.4); MONOCYTES 10.4 % (2-11); NEUTROPHILS 57.2 % (40-80); PLATELET COUNT 295 10x3/uL (130-400); RBC 4.69 10x6/uL (4.00-5.40); RDW 14.6 % (11.5-14.5); WBC 10.6 10x3/uL (4.8-10.8)
[2020-06-10 22:55] LABS: APTT 28.8 SECONDS (22.8-39.4); INR 0.96 (0.85-1.17); PROTIME 12.7 SECONDS (11.6-15.0)
[2020-06-10 23:05] LABS: CALC OSMOLALITY 271 mosm/kg (275-300); CALCIUM 8.8 mg/dL (8.5-10.1); CARBON DIOXIDE 24.4 mmol/L (21.0-32.0); CHLORIDE - SERUM 103 mmol/L (98-107); CREATININE - SERUM 0.8 mg/dL (0.6-1.3); GLUCOSE 94 mg/dL (74-106); POTASSIUM - SERUM 3.9 mmol/L (3.5-5.1); SODIUM 137 mmol/L (136-145); UREA NITROGEN 7 mg/dL (7-18); eGFR NON AFRICAN AMERICAN 83 mL/min (90-120)
[2020-06-10 23:11] LABS: ALBUMIN 3.5 g/dL (3.4-5.0); ALKALINE PHOSPHATASE 144 U/L (30-120); ALT (SGPT) 27 U/L (10-68); BILIRUBIN - TOTAL 0.22 mg/dL (0.2-1.3); PROTEIN - SERUM 6.9 g/dL (6.4-8.2)
[2020-06-11] MEDS ORDERED: PROTONIX20 MG PO (00:56)
[2020-06-11 01:42] VITALS: BP 135/59
== END 2020-06-11 01:42 | disposition home or self-care (01) ==
LOC: D.ER 21:54
PROVIDERS: Emergency Medicine
DX: R10.32 Left lower quadrant pain (principal); Z87.19 Personal history of other diseases of the digestive system; E78.5 Hyperlipidemia, unspecified; R11.10 Vomiting, unspecified

== ENCOUNTER 2020-07-01 21:41 | Inpatient (IN) | payer MEDICAID ==
[~2020-07-01] VITALS: Ht 157.5 cm; Wt 62.6 kg
[~2020-07-01 21:41] MED LIST changes: +AMBIEN10 MG PO; +PROTONIX20 MG PO
[2020-07-01 22:34] LABS: BASOPHILS 0.1 % (0-2); EOSINOPHILS 0.6 % (0-7); HEMATOCRIT 43.5 % (36.0-48.0); HEMOGLOBIN 14.4 g/dL (12-16); IMMATURE GRANULOCYTES 0.4 % (0-5); LYMPHOCYTES 15.9 % (15-50); MCH 28.7 pg (26.0-34.0); MCHC 33.1 g/dL (31.0-37.0); MCV 86.8 fL (80.0-100.0); MEAN PLATELET VOLUME 11.3 fL (7.4-10.4); MONOCYTES 10.5 % (2-11); NEUTROPHILS 72.5 % (40-80); PLATELET COUNT 248 10x3/uL (130-400); RBC 5.01 10x6/uL (4.00-5.40); RDW 14.3 % (11.5-14.5); WBC 14.1 10x3/uL (4.8-10.8)
[2020-07-01 22:47] LABS: CALC OSMOLALITY 268 mosm/kg (275-300); CARBON DIOXIDE 24.7 mmol/L (21.0-32.0); CHLORIDE - SERUM 101 mmol/L (98-107); CREATININE - SERUM 0.7 mg/dL (0.6-1.3); GLUCOSE 96 mg/dL (74-106); POTASSIUM - SERUM 3.5 mmol/L (3.5-5.1); SODIUM 135 mmol/L (136-145); UREA NITROGEN 9 mg/dL (7-18); eGFR NON AFRICAN AMERICAN > 90 mL/min (90-120)
[2020-07-01 22:49] LABS: ALBUMIN 3.5 g/dL (3.4-5.0); ALKALINE PHOSPHATASE 171 U/L (30-120); ALT (SGPT) 17 U/L (10-68); AMYLASE - SERUM 82 U/L (25-115); BILIRUBIN - TOTAL 0.31 mg/dL (0.2-1.3); LIPASE 69 U/L (73-393); PROTEIN - SERUM 7.2 g/dL (6.4-8.2)
[2020-07-02 01:24] LABS: BILIRUBIN NEGATIVE (NEGATIVE); GLUCOSE NEGATIVE (NEGATIVE); KETONE NEGATIVE (NEGATIVE); NITRITE NEGATIVE (NEGATIVE); UROBILINOGEN NORMAL (NORMAL)
--- NOTE | 2020-07-02 02:55 | NUR ---
NS CONTINUES TO INFUSE @ 100CC/HR ON TRANSFER TO MED SURG
[2020-07-02 03:18] VITALS: BP 132/63; BMI 25.3
--- NOTE | 2020-07-02 03:32 | NUR ---
PT ARRIVED TO THE FLOOR. ALERT AND ORIENTED. NO SIGNS OF DISTRESS. BREATHING EVEN AND ULABORED. IV SITE LT THUMB DRESSING CLEAN DRY AND INTACT. NO SIGNS OF INFECTION OR INFULTRATION. SKIN CLEAN DRY AND INTACT. LUNG SOUNDS CLEAR. BOWEL SOUNDS ACTIVE. ABD TENDER TO PALPATION. NO LOWER LEG SWELLING PRESENT. WILL CONTINUE PLAN OF CARE. CALL LIGHT IN REACH. BED LOWERED AND LOCKED. BED RAILS UP X2.
[2020-07-02 09:39] LABS: BASOPHILS 0.1 % (0-2); EOSINOPHILS 1.8 % (0-7); HEMATOCRIT 40.4 % (36.0-48.0); HEMOGLOBIN 13.3 g/dL (12-16); IMMATURE GRANULOCYTES 0.2 % (0-5); LYMPHOCYTES 25.7 % (15-50); MCH 28.7 pg (26.0-34.0); MCHC 32.9 g/dL (31.0-37.0); MCV 87.3 fL (80.0-100.0); MEAN PLATELET VOLUME 11.2 fL (7.4-10.4); MONOCYTES 9.6 % (2-11); NEUTROPHILS 62.6 % (40-80); PLATELET COUNT 222 10x3/uL (130-400); RBC 4.63 10x6/uL (4.00-5.40); RDW 14.2 % (11.5-14.5)
[2020-07-02 09:40] LABS: WBC 8.5 10x3/uL (4.8-10.8)
[2020-07-02 09:42] VITALS: BP 125/54
[2020-07-02 09:46] LABS: CALC OSMOLALITY 274 mosm/kg (275-300); CALCIUM 8.4 mg/dL (8.5-10.1); CARBON DIOXIDE 27.3 mmol/L (21.0-32.0); CHLORIDE - SERUM 106 mmol/L (98-107); CREATININE - SERUM 0.6 mg/dL (0.6-1.3); GLUCOSE 84 mg/dL (74-106); POTASSIUM - SERUM 3.9 mmol/L (3.5-5.1); SODIUM 139 mmol/L (136-145); UREA NITROGEN 8 mg/dL (7-18); eGFR NON AFRICAN AMERICAN > 90 mL/min (90-120)
[2020-07-02 12:52] VITALS: BP 140/79
[2020-07-02 12:58] VITALS: Ht 157.5 cm; Wt 62.6 kg
[2020-07-02 17:15] VITALS: BP 129/40
[2020-07-02 20:00] VITALS: BP 118/79
[2020-07-03] VITALS: BP 120/75
[2020-07-03 04:00] VITALS: BP 125/78
[2020-07-03 07:22] LABS: BASOPHILS 0.2 % (0-2); CALC OSMOLALITY 270 mosm/kg (275-300); CALCIUM 8.5 mg/dL (8.5-10.1); CARBON DIOXIDE 28.8 mmol/L (21.0-32.0); CHLORIDE - SERUM 104 mmol/L (98-107); EOSINOPHILS 2.1 % (0-7); GLUCOSE 81 mg/dL (74-106); HEMATOCRIT 38.9 % (36.0-48.0); HEMOGLOBIN 12.6 g/dL (12-16); IMMATURE GRANULOCYTES 0.2 % (0-5); LYMPHOCYTES 22.7 % (15-50); MCH 28.6 pg (26.0-34.0); MCHC 32.4 g/dL (31.0-37.0); MCV 88.2 fL (80.0-100.0); MEAN PLATELET VOLUME 12.4 fL (7.4-10.4); MONOCYTES 10.1 % (2-11); NEUTROPHILS 64.7 % (40-80); PLATELET COUNT 238 10x3/uL (130-400); POTASSIUM - SERUM 3.9 mmol/L (3.5-5.1); RBC 4.41 10x6/uL (4.00-5.40); RDW 14.1 % (11.5-14.5); SODIUM 137 mmol/L (136-145); UREA NITROGEN 7 mg/dL (7-18); WBC 9.8 10x3/uL (4.8-10.8); eGFR NON AFRICAN AMERICAN 83 mL/min (90-120)
[2020-07-03 07:24] LABS: CREATININE - SERUM 0.8 mg/dL (0.6-1.3)
[2020-07-03 09:07] VITALS: BP 127/70
--- NOTE | 2020-07-03 11:01 | NUR ---
PT AWAKE LAYING ON RIGHT SIDE. STATED GASTRIC PACEMAKER DID NOT WORK SO SHE IS GOING TO HAVE TO HAVE A PEG TUBE PLACED. REQUESTED AN IPHONE HOTEL CASINO FLOORPERSON CAUSE HERS JUST BROKE. I DO NOT HAVE ONE. CL IN REACH.
[2020-07-03 13:48] VITALS: BP 114/60
[2020-07-03 16:12] LABS: UDS - AMPHET NEGATIVE QUAL (NEGATIVE); UDS - BARB NEGATIVE QUAL (NEGATIVE); UDS - BENZO NEGATIVE QUAL (NEGATIVE); UDS - COCAINE NEGATIVE QUAL (NEGATIVE); UDS - OPIATE POSITIVE QUAL (NEGATIVE); UDS - PCP NEGATIVE QUAL (NEGATIVE); UDS - THC POSITIVE QUAL (NEGATIVE)
[2020-07-03 17:03] VITALS: BP 129/50
--- NOTE | 2020-07-03 19:00 | NUR ---
BEDSIDE REPORT RECEIVED AND CARE OF PATIENT ASSUMED. PT AMBULATING IN THE HALLWAY AT THIS TIME. IV TO LEFT HAND SALINE LOCKED. WILL MONITOR FOR NEEDS.
[2020-07-03 20:00] VITALS: BP 174/45
--- NOTE | 2020-07-03 20:30 | NUR ---
HS MEDICATIONS GIVEN TO INCLUDE MORPHINE AND ZOFRAN IVP PER REQUEST FOR PAIN AND NAUSEA. WILL CONTINUE TO MONITOR FOR NEEDS.
--- NOTE | 2020-07-03 21:15 | NUR ---
PT AMBULATING IN THE HALLWAY.
[2020-07-04] VITALS: BP 180/52
--- NOTE | 2020-07-04 01:04 | NUR ---
GAVE MORPHINE AND ZOFRAN IVP FOR C/O PAIN AND NAUSEA....PT HAD MCDONALDS FOOD BROUGHT UP BY FAMILY MEMBERS.
[2020-07-04 06:12] LABS: BASOPHILS 0.2 % (0-2); EOSINOPHILS 1.1 % (0-7); HEMATOCRIT 39.6 % (36.0-48.0); HEMOGLOBIN 12.9 g/dL (12-16); IMMATURE GRANULOCYTES 0.3 % (0-5); LYMPHOCYTES 15.3 % (15-50); MCH 28.4 pg (26.0-34.0); MCHC 32.6 g/dL (31.0-37.0); MCV 87.2 fL (80.0-100.0); MEAN PLATELET VOLUME 12.1 fL (7.4-10.4); MONOCYTES 11.3 % (2-11); NEUTROPHILS 71.8 % (40-80); PLATELET COUNT 264 10x3/uL (130-400); RBC 4.54 10x6/uL (4.00-5.40)
[2020-07-04 06:13] LABS: WBC 13.2 10x3/uL (4.8-10.8)
[2020-07-04 06:36] LABS: CALC OSMOLALITY 274 mosm/kg (275-300); CALCIUM 9.1 mg/dL (8.5-10.1); CARBON DIOXIDE 27.6 mmol/L (21.0-32.0); CHLORIDE - SERUM 105 mmol/L (98-107); CREATININE - SERUM 0.7 mg/dL (0.6-1.3); GLUCOSE 87 mg/dL (74-106); POTASSIUM - SERUM 4.1 mmol/L (3.5-5.1); SODIUM 140 mmol/L (136-145); eGFR NON AFRICAN AMERICAN > 90 mL/min (90-120)
[2020-07-04 06:41] LABS: UREA NITROGEN 5 mg/dL (7-18)
[2020-07-04 08:41] VITALS: BP 127/61
[2020-07-04] MEDS ORDERED: ZOFRAN ODT4 MG/UDTAB PO (12:11)
--- NOTE | 2020-07-04 12:22 | MORECARE ---
CASE MANAGEMENT DISCHARGE SUMMARY PATIENT: JUDD ISSA UNIT: [id number] ADM DATE: 07/02/20 AGE: 45 : 79 SEX: F ROOM/BED: D.2215 AUTHOR: LITA HIGUERA PHYSICIAN: REFERRING PHYSICIAN: CRISTA RAO MD DATE OF SERVICE: 07/04/20 Discharge Plan Patient Name: JUDD ISSA Facility: [facility]:[place] : 1975 Planned Disposition: Home or Self Care Anticipated Discharge Date: Discharge Date: Expected LOS: Initial Reviewer: [email or web address] Initial Review Date: 07/02/2020 Generated: 07/04/20 1:21 pm DCP- Discharge Planning Updated by [email or web address]: Reba Clark on 07/04/20 11:[address] Patient Name: JUDD ISSA Admission Status: ER Accout number: [id number] Admission Date: 07-02-2020 : 1975 Admission Diagnosis: Attending: CRISTA RAO Current LOS: 2 Anticipated DC Date: Planned Disposition: Home or Self Care Primary Insurance: MEDICAID [place] Discharge Planning Comments: CM met with patient to complete initial dc planning assessment. CM educated patient on the CM role and verbal consent given by patient to complete assessment. Patient lives at home with her spouse where she is independent with her care. At discharge patient plans to return home and feels this is a safe discharge. CM discussed availability of home health, rehab services, and medical equipment. She has a gastric pacemaker, but does not think it works. Patient denied known discharge needs at this time. Her will be her driver education instructor home. CM will continue to follow and will assist as needed with dc plans/needs. Graphic Design Professor: Reba Clark DCPIA - Discharge Planning Initial Assessment Updated by [email or web address]: Reba Clark on 07/04/20 12:20 pm * Is the patient Alert and Oriented? Yes * How many steps to enter\exit or inside your home? * PCP CECELIA PALMA * [facility] * Preadmission Environment Home with Family * ADLs Independent * Equipment None * List name and contact numbers for known caregivers / representatives who currently or will assist patient after discharge: GERSON ( SPOUSE) [phone] * Verbal permission to speak to the caregivers and representatives has been obtained from the patient. N/A * Community resources currently utilized None * Additional services required to return to the preadmission environment? No * Can the patient safely return to the preadmission environment? Yes * Has this patient been hospitalized within the prior 30 days at any hospital? No Patient Name: JUDD ISSA Page 20173 at 1222 All edits/amendments must be made on the electronic document DICTATION DATE: 07/04/20 1222 VEGETABLES COOK: RAJI 07/04/20 1222 RPT#: [id number] DC DATE: STATUS: ADM IN [facility] [address] [place] [address] END OF REPORT
[2020-07-04 12:27] VITALS: BP 119/68
--- NOTE | 2020-07-04 14:45 | NUR ---
PATIENT RECIEVED DC INSTRUCTIONS. VERBALIZED UNDERSTANDING. NO QUESTIONS AT THIS TIME. IV REMOVED WITH CATH TIP INTACT. WAITING FOR TRANSPORTATION FOR DC.
--- NOTE | 2020-07-06 08:36 | MORECARE ---
CASE MANAGEMENT DISCHARGE SUMMARY PATIENT: JUDD ISSA UNIT: [id number] ADM DATE: 07/02/20 AGE: 45 : [birth year] SEX: F ROOM/BED: D.2215 AUTHOR: LITA HIGUERA PHYSICIAN: REFERRING PHYSICIAN: CRISTA RAO MD DATE OF SERVICE: 07/06/20 Discharge Plan Patient Name: JUDD ISSA Facility: [facility]:[place] : 1975 Planned Disposition: Home or Self Care Anticipated Discharge Date: Discharge Date: 07/04/2020 Expected LOS: 0 Initial Reviewer: [email or web address] Initial Review Date: 07/02/2020 Generated: 07/06/20 9:36 am DCP- Discharge Planning Updated by [email or web address]: Reba Clark on 07/04/20 11:[address] Patient Name: JUDD ISSA Admission Status: ER Accout number: [id number] Admission Date: 07-02-2020 : 1975 Admission Diagnosis: Attending: CRISTA RAO Current LOS: 2 Anticipated DC Date: Planned Disposition: Home or Self Care Primary Insurance: MEDICAID [place] Discharge Planning Comments: CM met with patient to complete initial dc planning assessment. CM educated patient on the CM role and verbal consent given by patient to complete assessment. Patient lives at home with her spouse where she is independent with her care. At discharge patient plans to return home and feels this is a safe discharge. CM discussed availability of home health, rehab services, and medical equipment. She has a gastric pacemaker, but does not think it works. Patient denied known discharge needs at this time. Her will be her intermodal owner operator truck driver home. CM will continue to follow and will assist as needed with dc plans/needs. Animated Cartoons Painter: Reba Clark DCPIA - Discharge Planning Initial Assessment Updated by [email or web address]: Reba Clark on 07/04/20 12:20 pm * Is the patient Alert and Oriented? Yes * How many steps to enter\exit or inside your home? * PCP CECELIA PALMA * [facility]acy [facility] * Preadmission Environment Home with Family * ADLs Independent * Equipment None * List name and contact numbers for known caregivers / representatives who currently or will assist patient after discharge: GERSON ( SPOUSE) [phone] * Verbal permission to speak to the caregivers and representatives has been obtained from the patient. N/A * Community resources currently utilized None * Additional services required to return to the preadmission environment? No * Can the patient safely return to the preadmission environment? Yes * Has this patient been hospitalized within the prior 30 days at any hospital? No Last DP export: 07/04/20 11:22 am Patient Name: JUDD ISSA Page [id number] at 0836 All edits/amendments must be made on the electronic document DICTATION DATE: 07/06/20835 COAGULANT DIPPER: RAJI 07/06/20835 RPT#: [id number] DC DATE:07/04/20 STATUS: DIS IN [facility] [id number] [place] [address] END OF REPORT
== END 2020-07-04 15:02 | disposition home or self-care (01) | DRG 392 ==
LOC: D.ER 21:41 → OBSVTIME 07-02 01:34 → D.MS 07-02 01:34
PROVIDERS: Family Medicine; ADMIT Emergency Medicine; ATTEND Emergency Medicine
DX: K31.84 Gastroparesis (principal); M32.9 Systemic lupus erythematosus, unspecified; I10 Essential (primary) hypertension; E78.5 Hyperlipidemia, unspecified; G25.81 Restless legs syndrome; K59.09 Other constipation; Z72.0 Tobacco use

== ENCOUNTER 2020-08-31 07:34 | Inpatient (IN) | payer MEDICAID ==
[~2020-08-31] VITALS: Ht 157.5 cm; Wt 64.4 kg
[2020-08-31 08:10] LABS: BASOPHILS 0.4 % (0-2); EOSINOPHILS 1.9 % (0-7); HEMATOCRIT 43.6 % (36.0-48.0); HEMOGLOBIN 14.6 g/dL (12-16); IMMATURE GRANULOCYTES 0.4 % (0-5); LYMPHOCYTES 16.7 % (15-50); MCH 29.7 pg (26.0-34.0); MCHC 33.5 g/dL (31.0-37.0); MCV 88.6 fL (80.0-100.0); MEAN PLATELET VOLUME 11.5 fL (7.4-10.4); MONOCYTES 10.9 % (2-11); NEUTROPHILS 69.7 % (40-80); PLATELET COUNT 250 10x3/uL (130-400); RBC 4.92 10x6/uL (4.00-5.40); WBC 10.1 10x3/uL (4.8-10.8)
[2020-08-31 08:19] LABS: CALC OSMOLALITY 260 mosm/kg (275-300); CALCIUM 8.8 mg/dL (8.5-10.1); CARBON DIOXIDE 20.9 mmol/L (21.0-32.0); CHLORIDE - SERUM 103 mmol/L (98-107); CREATININE - SERUM 0.7 mg/dL (0.6-1.3); GLUCOSE 98 mg/dL (74-106); POTASSIUM - SERUM 3.9 mmol/L (3.5-5.1); SODIUM 131 mmol/L (136-145); UREA NITROGEN 8 mg/dL (7-18); eGFR NON AFRICAN AMERICAN > 90 mL/min (90-120)
[2020-08-31 09:29] VITALS: BP 122/66; BMI 26.0
[2020-08-31] MEDS ORDERED: PHENERGAN25 M1 PO (09:40)
[2020-08-31] MEDS ORDERED: PROTONIX40 MG PO (09:41)
--- NOTE | 2020-08-31 19:28 | NUR ---
1929 PAIN EASING AND PT TRANSFERED TO ROOM
[2020-08-31 22:44] VITALS: BP 151/67; BMI 26.0
[2020-09-01] VITALS: BP 100/50; BP 113/45
[2020-09-01 04:00] VITALS: BP 108/57; BP 170/60
[2020-09-01 09:02] VITALS: BP 110/56
[2020-09-01 11:51] VITALS: BP 107/56
[2020-09-01 13:36] VITALS: Ht 157.5 cm; Wt 64.4 kg
[2020-09-01 17:50] VITALS: BP 112/65
--- NOTE | 2020-09-01 18:34 | OP ---
PATIENT NAME: JUDD ISSA MEDICAL RECORD: [id number] :79 LOCATION:[id number] ADMISSION DATE:09/01/20 SURGEON: DARWIN DOYLE MD DATE OF OPERATION: 08/31/2020 PREOPERATIVE DIAGNOSES: 1. Gastroparesis. 2. Failed gastric pacemaker therapy. POSTOPERATIVE DIAGNOSES: 1. Gastroparesis. 2. Failed gastric pacemaker therapy. PROCEDURES: 1. Esophagogastroduodenoscopy with antral biopsies. 2. Open placement of gastrojejunal feeding tube. 3. Positioning of gastrojejunal feeding tube under fluoroscopic guidance. 4. Immediate surgeon interpretation of the fluoroscopic images. SURGEON: Darwin Doyle MD EVENTS ADMINISTRATIVE ASSISTANT: None. BLOOD LOSS: Minimal. ANESTHESIA: General. COMPLICATIONS: None. General endotracheal anesthesia was used for the patient's operation as I feared that she may have a bezoar and if this was regurgitated it could have led to a significant aspiration. Fortunately, no bezoar was identified. OPERATIVE COURSE: The patient was conveyed the operating room electively on 08/31/2020. General anesthesia was induced by the anesthesia staff. A bite block was inserted. A gastroscope was inserted into the mouth. It was advanced easily into the hypopharynx. The esophagus was easily intubated as were the stomach and duodenum. Upon withdrawal, retroflexed and angulus views were obtained. Antral cold endoscopic biopsies were obtained to rule out Helicobacter pylori. I left the gastroscope in the patient's stomach and we turned off the light. The endoscopy that was performed was CO2 endoscopy. The anterior abdominal wall was cleansed. I chose an area for placement of my incision. It was along the left costal margin. It is a site where I was able to transilluminate with the gastroscope. A parasagittal incision was accomplished. I dissected down through skin and subcutaneous tissues. The rectus sheath was incised. I then dissected bluntly between rectus muscle fibers and dissected down to the posterior fascia, which was incised as well. I was able to quickly identify the stomach. I was able to see the gastric pacemaker leads. Through this abdominal wall defect, I was able to retract a portion of the OPERATIVE REPORT [id number] JUDD ISSA stomach and then place a 0 Vicryl suture in a pursestring fashion around the anterior portion of the stomach, very close to the greater curve. A small gastrotomy was accomplished. Through the gastrotomy, I advanced the gastrojejunal feeding tube. I then inflated the balloon. I then tied the 0 Vicryl suture. The posterior fascia was closed with interrupted horizontal mattress 0 Vicryls. The anterior fascia was approximated with interrupted horizontal mattress 0 Vicryls. The subdermis was approximated with interrupted 3-0 Vicryls. The skin was approximated with 2-0 nylons in a mattress fashion. I then returned to the gastroscope. I was able to find the end of the jejunal tubing. This was grasped and was advanced with the gastroscope into the distal duodenum. However, every time I tried to withdraw my gastroscope, the jejunostomy tube would flip back into the stomach. Finally, I was able to advance it and then withdraw the wire and it did not flip all the way out of the duodenum. No radiologist was present for this procedure. Static fluoroscopic images were obtained and are kept in the PACS system. The surgeon interpretation of the radiographic images is dictated within the body of this operative note. The patient is going to be admitted overnight. She will require some training on this new feeding tube. I will plan that she will be dismissed home sometime tomorrow. TRANSINT:[id number] Voice Confirmation ID: [id number] DOCUMENT ID: [id number] DARWIN DOYLE MD at 1834 CC: [id number] DICTATION DATE: 08/31/20 1645 TROLLEY CAR OVERHAULER: 09/01/20 0217 ADM IN [facility] [address] [id number]
--- NOTE | 2020-09-01 19:54 | NUR ---
0700 BEDSIDE REPORT RECEIVED ASSESSMENT COMPLETE AAO IN BED
--- NOTE | 2020-09-01 19:57 | NUR ---
[address] DOYLE FOR NEW ORDERS
--- NOTE | 2020-09-01 19:58 | NUR ---
1400 PT STATED FEELING LESS NAUSEATED
--- NOTE | 2020-09-01 19:58 | NUR ---
1313 PHENERGAN 25 IM GIVEN NAUSEA
[2020-09-01 20:00] VITALS: BP 109/39
--- NOTE | 2020-09-01 20:00 | NUR ---
PATIENT RESTING IN BED WATCHING TV. NO S/S OF ACUTE DISTRESS. NO C/O AT THIS TIME. PATIENT HAS A RIGHT HAND IV, NORMAL SALINE @ 100 ML/HR AND DILAUDID MANAGER ASSISTED LIVING. IV IS PATENT WITHOUT REDNESS, SWELLING, OR TENDERNESS. PATIENT HAS A GJ-TUBE ON LEFT SIDE, DRESSING C/D/I. PATIENT IS UP [facility]LIB. CALL LIGHT WITHIN REACH. WILL CONTINUE TO MONITOR.
[2020-09-02] VITALS: BP 112/51
[2020-09-02 04:00] VITALS: BP 106/56
--- NOTE | 2020-09-02 04:25 | NUR ---
I have reviewed this patient and I concur with the Shift Assessment completed by the Licensed Practical Nurse today this shift.
[2020-09-02 09:03] VITALS: BP 132/63
--- NOTE | 2020-09-02 11:01 | NUR ---
NUTRITION F/U RECEIVED CONSULT FOR J-TUBE RECOMMENDATIONS. ORDERS WRITTEN. WILL PROVIDE OSMOLITE 1.0 CARLA AND SPEAK WITH NURSING. RD FOLLOWING
--- NOTE | 2020-09-02 12:10 | NUR ---
PT TUBE FEEDINGS TO BE STARTED TODAY, CALLED ICU AND MED 2 FOR FEEDING PUMPS NONE AVAIL AT THIS TIME. PT STILL ON SOFT DIET WILL CONTINUE WITH PLAN OF CARE. FLUSHED PT TUBE PER REQUEST
[2020-09-02] MEDS ORDERED: HYDROCODON-ACE1 EAC7 PO (15:07)
--- NOTE | 2020-09-02 16:45 | MORECARE ---
CASE MANAGEMENT DISCHARGE SUMMARY PATIENT: JUDD ISSA UNIT: [id number] ADM DATE: 09/01/20 AGE: 45 : 77 SEX: F ROOM/BED: D.2219 AUTHOR: LITA HIGUERA PHYSICIAN: REFERRING PHYSICIAN: CATHIE DOYLE MD DATE OF SERVICE: 09/02/20 Discharge Plan Patient Name: JUDD ISSA Facility: [facility]:[place] : 1975 Planned Disposition: Anticipated Discharge Date: Discharge Date: Expected LOS: Initial Reviewer: [email or web address] Initial Review Date: 09/01/2020 Generated: 09/02/20 5:44 pm Comments DCP- Discharge Planning Updated by [email or web address]: Melani Jones on 09/02/20 3:[address] Patient Name: JUDD ISSA Admission Status: Elective Accout number: [id number] Admission Date: 09-01-2020 : 1975 Admission Diagnosis: Attending: CATHIE DOYLE Current LOS: 1 Anticipated DC Date: Planned Disposition: Primary Insurance: MEDICAID [place] Discharge Planning Comments: CM met with patient at bedside after explaining CM role and obtaining verbal consent. CM discussed availability / needs of home health, REHAB and medical equipment. PATIENT WOULD LIKE TO ASSIST WITH NEW G-J TUBE CARE. YAHAIRA SIGNED FOR [facility]. I AM FAXING THEM THE REFERRAL. TUBE TO BE FLUSHED TWICE DAILY WITH TAP WATER. SHE IS NOT TO START FEEDINGS YET AND SHE IS AWARE OF THIS. CM TO FOLLOW AND ASSIST NEEDED. Power System Operator: Melani Jones DCPIA - Discharge Planning Initial Assessment Updated by [id number]: Melani Jones on 09/02/20 4:41 pm * Is the patient Alert and Oriented? Yes * PCP [facility] * Pharmacy [facility] * Preadmission Environment Home with Family * ADLs Independent * Equipment None * Community resources currently utilized None * Additional services required to return to the preadmission environment? No * Can the patient safely return to the preadmission environment? Yes * Has this patient been hospitalized within the prior 30 days at any hospital? No Patient Name: JUDD ISSA Page [id number] at 1645 All edits/amendments must be made on the electronic document DICTATION DATE: 09/02/201643 EQUIPMENT MECHANIC SPECIALIST: RAJI 09/02/201643 RPT#: [id number] DC DATE: STATUS: ADM IN [facility] [address] [place] [address] END OF REPORT
--- NOTE | 2020-09-02 16:52 | MORECARE ---
CASE MANAGEMENT DISCHARGE SUMMARY PATIENT: JUDD ISSA UNIT: [id number] ADM DATE: 09/01/20 AGE: 45 : 79 SEX: F ROOM/BED: D.3239 AUTHOR: LITA HIGUERA PHYSICIAN: REFERRING PHYSICIAN: CATHIE DOYLE MD DATE OF SERVICE: 09/02/20 Discharge Plan Patient Name: JUDD ISSA Facility: [facility]:[place] : 1975 Planned Disposition: Anticipated Discharge Date: Discharge Date: Expected LOS: Initial Reviewer: [email or web address] Initial Review Date: 09/01/2020 Generated: 09/02/20 5:52 pm Comments DCP- Discharge Planning Updated by [email or web address]: Melani Jones on 09/02/20 3:[address] Patient Name: JUDD ISSA Admission Status: Elective Accout number: [id number] Admission Date: 09-01-2020 : 1975 Admission Diagnosis: Attending: CATHIE DOYLE Current LOS: 1 Anticipated DC Date: Planned Disposition: Primary Insurance: MEDICAID [place] Discharge Planning Comments: CM met with patient at bedside after explaining CM role and obtaining verbal consent. CM discussed availability / needs of home health, REHAB and medical equipment. PATIENT WOULD LIKE TO ASSIST WITH NEW G-J TUBE CARE. YAHAIRA SIGNED FOR [facility] . I AM FAXING THEM THE REFERRAL. TUBE TO BE FLUSHED TWICE DAILY WITH TAP WATER. SHE IS NOT TO START FEEDINGS YET AND SHE IS AWARE OF THIS. CM TO FOLLOW AND ASSIST NEEDED. Medical Records Clerk: Melani Jones DCPIA - Discharge Planning Initial Assessment Updated by [email or web address]: Melani Jones on 09/02/20 4:41 pm * Is the patient Alert and Oriented? Yes * PCP [facility]TA * [facility]acy [facility] * Preadmission Environment Home with Family * ADLs Independent * Equipment None * Community resources currently utilized None * Additional services required to return to the preadmission environment? No * Can the patient safely return to the preadmission environment? Yes * Has this patient been hospitalized within the prior 30 days at any hospital? No External [facility] Contact Date: Service Request Date: Service Type: Resolution: Reviewer: Comments: Last DP export: 09/02/20 3:45 p Patient Name: JUDD ISSA Page [phone] at 1652 All edits/amendments must be made on the electronic document DICTATION DATE: 09/02/201651 DISCOUNT CLERK: RAIJ 09/02/201651 RPT#: [id number] DC DATE: STATUS: ADM IN [facility] [address] [place] [address] END OF REPORT
--- NOTE | 2020-09-02 17:39 | NUR ---
PATIENT DC HOME, WENT OVER PAPERWORK AND FOLLOW UP INSTRUCTIONS WITH PATIENT AND , TAUGHT PATIENT ABOUT FLUSHING TUBE AND FEEDINGS. HOMEHEALTH TO COME SEE PT
--- NOTE | 2020-09-05 09:15 | MORECARE ---
CASE MANAGEMENT DISCHARGE SUMMARY PATIENT: JUDD ISSA UNIT: [id number] ADM DATE: 09/01/20 AGE: 45 : 77 SEX: F ROOM/BED: D.2409 AUTHOR: LITA HIGUERA PHYSICIAN: REFERRING PHYSICIAN: CATHIE DOYLE MD DATE OF SERVICE: 09/05/20 Discharge Plan Patient Name: JUDD ISSA Facility: [facility]:[place] : 1975 Planned Disposition: Home with Home Health Anticipated Discharge Date: Discharge Date: 09/02/2020 Expected LOS: 0 Initial Reviewer: [email or web address] Initial Review Date: 09/01/2020 Generated: 09/05/20 10:14 am Comments DCP- Discharge Planning Updated by [email or web address]: Melani Jones on 09/02/20 3:[address] Patient Name: JUDD ISSA Admission Status: Elective Accout number: [id number] Admission Date: 09-01-2020 : 1975 Admission Diagnosis: Attending: CATHIE DOYLE Current LOS: 1 Anticipated DC Date: Planned Disposition: Primary Insurance: MEDICAID [place] Discharge Planning Comments: CM met with patient at bedside after explaining CM role and obtaining verbal consent. CM discussed availability / needs of home health, REHAB and medical equipment. PATIENT WOULD LIKE TO ASSIST WITH NEW G-J TUBE CARE. YAHAIRA SIGNED FOR [facility] . I AM FAXING THEM THE REFERRAL. TUBE TO BE FLUSHED TWICE DAILY WITH TAP WATER. SHE IS NOT TO START FEEDINGS YET AND SHE IS AWARE OF THIS. CM TO FOLLOW AND ASSIST NEEDED. Freelance Graphic Designer: Melani Jones DCPIA - Discharge Planning Initial Assessment Updated by [id number]: Melani Jones on 09/02/20 4:41 pm * Is the patient Alert and Oriented? Yes * PCP [facility] * Pharmacy [facility] * Preadmission Environment Home with Family * ADLs Independent * Equipment None * Community resources currently utilized None * Additional services required to return to the preadmission environment? No * Can the patient safely return to the preadmission environment? Yes * Has this patient been hospitalized within the prior 30 days at any hospital? No Last DP export: 09/02/20 3:52 p Patient Name: JUDD ISSA Page 58385 at 0915 All edits/amendments must be made on the electronic document DICTATION DATE: 09/05/20913 FITTER HELPER: RAJI 09/05/20913 RPT#: [id number] DC DATE:09/02/20 STATUS: DIS IN [facility] [address] [place] [address] END OF REPORT
--- NOTE | 2020-09-05 12:44 | MORECARE ---
CASE MANAGEMENT DISCHARGE SUMMARY PATIENT: JUDD ISSA UNIT: [id number] ADM DATE: 09/01/20 AGE: 45 : 79 SEX: F ROOM/BED: D.2219 AUTHOR: LITA HIGUERA PHYSICIAN: REFERRING PHYSICIAN: CATHIE DOYLE MD DATE OF SERVICE: 09/05/20 Discharge Plan Patient Name: JUDD ISSA Facility: [facility]:[place] : 1975 Planned Disposition: Home with Home Health Anticipated Discharge Date: Discharge Date: 09/02/2020 Expected LOS: 0 Initial Reviewer: [email or web address] Initial Review Date: 09/01/2020 Generated: 09/05/20 1:43 pm Comments DCP- Discharge Planning Updated by [email or web address]: Melani Jones on 09/02/20 3:[address] Patient Name: JUDD ISSA Admission Status: Elective Accout number: [id number] Admission Date: 09-01-2020 : 1975 Admission Diagnosis: Attending: CATHIE DOYLE Current LOS: 1 Anticipated DC Date: Planned Disposition: Primary Insurance: MEDICAID [place] Discharge Planning Comments: CM met with patient at bedside after explaining CM role and obtaining verbal consent. CM discussed availability / needs of home health, REHAB and medical equipment. PATIENT WOULD LIKE TO ASSIST WITH NEW G-J TUBE CARE. YAHAIRA SIGNED FOR [facility]. I AM FAXING THEM THE REFERRAL. TUBE TO BE FLUSHED TWICE DAILY WITH TAP WATER. SHE IS NOT TO START FEEDINGS YET AND SHE IS AWARE OF THIS. CM TO FOLLOW AND ASSIST NEEDED. Learning Technologist: Melani Jones DCPIA - Discharge Planning Initial Assessment Updated by [email or web address]: Melani Jones on 09/02/20 4:41 pm * Is the patient Alert and Oriented? Yes * PCP [facility] * [facility]acy [facility] * Preadmission Environment Home with Family * ADLs Independent * Equipment None * Community resources currently utilized None * Additional services required to return to the preadmission environment? No * Can the patient safely return to the preadmission environment? Yes * Has this patient been hospitalized within the prior 30 days at any hospital? No External Providers External Provider: [facility] Next Contact Date: Service Request Date: Service Type: Resolution: Reviewer: Comments: Last DP export: 09/05/20 8:15 a Patient Name: JUDD ISSA Page 18022 at 1244 All edits/amendments must be made on the electronic document DICTATION DATE: 09/05/201242 PHARMACEUTICAL SALES: RAJI 09/05/20 1243 RPT#: [id number] DC DATE:09/02/20 STATUS: DIS IN [facility] [address] [place] [address] END OF REPORT
--- NOTE | 2020-09-05 12:53 | MORECARE ---
CASE MANAGEMENT DISCHARGE SUMMARY PATIENT: JUDD ISSA UNIT: [id number] ADM DATE: 09/01/20 AGE: 45 : 79 SEX: F ROOM/BED: D.2219 AUTHOR: LITA HIGUERA PHYSICIAN: REFERRING PHYSICIAN: CATHIE DOYLE MD DATE OF SERVICE: 09/05/20 Discharge Plan Patient Name: JUDD ISSA Facility: [facility]:[place] : 1975 Planned Disposition: Home with Home Health Anticipated Discharge Date: Discharge Date: 09/02/2020 Expected LOS: 0 Initial Reviewer: [email or web address] Initial Review Date: 09/01/2020 Generated: 09/05/20 1:52 pm Comments DCP- Discharge Planning Updated by [email or web address]: Reba Clark on 09/05/20 11:[address] PATIENT CALLED ABOUT HH AND NEEDING ANOTHER COMPANY [facility] COULD NOT SEE HER DUE TO STAFFING. AFTER SPEAKING WITH THE PATIENT A REFERRAL WAS SENT TO [facility] TO SEE IF THE PATIENT CAN BEEN SEEN TOMORROW. JOW WITH [facility] WILL CALL ME BACK AND LET ME KNOW FOR SURE. I WILL CALL THE PATIENT BACK WHEN I KNOW SHE WILL BE SEEN. DCP- Discharge Planning Updated by [email or web address]: Melani Jones on 09/02/20 3:[address] Patient Name: JUDD ISSA Admission Status: Elective Accout number: [id number] Admission Date: 09-01-2020 : 1975 Admission Diagnosis: Attending: CATHIE DOYLE Current LOS: 1 Anticipated DC Date: Planned Disposition: Primary Insurance: MEDICAID [place] Discharge Planning Comments: CM met with patient at bedside after explaining CM role and obtaining verbal consent. CM discussed availability / needs of home health, REHAB and medical equipment. PATIENT WOULD LIKE HH TO ASSIST WITH NEW G-J TUBE CARE. YAHAIRA SIGNED FOR [facility]. I AM FAXING THEM THE REFERRAL. TUBE TO BE FLUSHED TWICE DAILY WITH TAP WATER. SHE IS NOT TO START FEEDINGS YET AND SHE IS AWARE OF THIS. CM TO FOLLOW AND ASSIST NEEDED. Stacker Driver: Melani Jones DCPIA - Discharge Planning Initial Assessment Updated by [email or web address]: Melani Jones on 09/02/20 4:41 pm * Is the patient Alert and Oriented? Yes * PCP [facility] * Pharmacy [facility] * Preadmission Environment Home with Family * ADLs Independent * Equipment None * Community resources currently utilized None * Additional services required to return to the preadmission environment? No * Can the patient safely return to the preadmission environment? Yes * Has this patient been hospitalized within the prior 30 days at any hospital? No Last DP export: 09/05/20 11:44 a Patient Name: JUDD ISSA Page 51549 at 1253 All edits/amendments must be made on the electronic document DICTATION DATE: 09/05/20 1253 BEREAVEMENT COUNSELOR: RAJI 09/05/20 1253 RPT#: [id number] DC DATE:09/02/20 STATUS: DIS IN [facility] [address] [place] [address] END OF REPORT
== END 2020-09-02 17:45 | disposition home health service (06) | DRG 392 ==
LOC: D.OPS 07:34 → D.MS 19:29 → D.OPS 09-01 14:38 → D.MS 09-01 14:39
PROVIDERS: ADMIT Surgery; ATTEND Surgery
PROC: 0DB78ZX Excision of Stomach, Pylorus, Via Natural or Artificial Opening Endoscopic, Diagnostic (ICD-10-PCS; principal; 2020-09-01)
PROC: 0DHA0UZ Insertion of Feeding Device into Jejunum, Open Approach (ICD-10-PCS; 2020-09-01)
DX: K31.84 Gastroparesis (principal); R10.9 Unspecified abdominal pain; R11.2 Nausea with vomiting, unspecified; Z72.0 Tobacco use

== ENCOUNTER → 2020-09-21 14:51 | Outpatient (CLI) | payer MEDICAID ==
[2020-09-01 13:36] VITALS: BMI 25.9
[~2020-09-21 14:51] MED LIST changes: +HYDROCODON-ACE1 EAC7 PO
== END | disposition home or self-care (01) ==
LOC: D.RAD 14:51
PROVIDERS: ATTEND Nurse Practitioner
DX: K59.00 Constipation, unspecified (principal)